=== PATIENT | female | born 1950 | race Caucasian/White ===

== ENCOUNTER 2017-05-23 01:14 | Emergency (ER) | payer OTHER, BC ==
[2017-05-23 01:26] VITALS: BP 180/87; PULSE 80; TEMP 98.6; BMI 44.3
[2017-05-23] MEDS ORDERED: SODIUM CHLORIDE 1,000 ML IV ONE (01:39)
[2017-05-23] MEDS ORDERED: KETOROLAC TROMETHAMINE 30 MG/1 ML VIAL IVPUSH ONE (01:39)
[2017-05-23] MEDS ORDERED: KETOROLAC TROMETHAMINE 30 MG/1 ML VIAL ONE (01:44)
--- NOTE | 2017-05-23 01:44 | PDOC ---
History of Present Illness - General Chief Complaint: Pain, Acute Stated Complaint: PAIN IN BACK RADIATING DOWN RIGHT LEG Time Seen by Provider: 05/23/17 01:27 History Source: Patient Exam Limitations: No Limitations - History of Present Illness Initial Comments: 05/23/17 01:46 This is an obese 66-year-old female who comes in complaining of epigastric pain. Patient says she has some associated nausea but denies any vomiting or diarrhea. Patient said she did have 2 loose bowel movements today that were normal in color. Patient says she often has 2-3 bowel movements a day. Patient says that bowel movements have not been dark or bloody. Patient denies history of blood in her stool or gastritis. Patient denies any fevers or chills. Patient denies any chest pain or shortness of breath patient denies any headache dizziness or neurological: Planes. Patient is complaining of low back pain radiating down her right leg. Patient has a long history of this pain and her fentanyl was recently decreased increased from 100 g 250 g per hour. In addition to that patient also takes 120 mg of oxycodone on a daily basis. On review of patients prescription drug history she appears to be compliant with her pain medication regime and is getting her pain medications from a pain specialist. PAST MEDICAL HISTORY: Chronic pain as per history of present illness PAST SURGICAL HISTORY: no significant history FAMILY HISTORY: no pertinant history SOCIAL HISTORY: Pt lives alone and is disabled. ALLERGIES: As per nursing notes Review of Systems General: No fevers or chills, no weakness, no weight loss HEENT: No change in vision. No sore throat,. No ear pain CardioVascular: No chest pain or shortness of breath Respiratory:No cough, or wheezing. Gastrointestinal: no nausea, vomitting, diarrhea or constipation, No rectal bleeding, abdominal pain as per history of present illness Genitourinary: No dysuria, hematuria, or frequency Musculoskeletal: Chronic low back pain radiating down her right leg Neurologic: No headache, vertigo, dizziness or loss of consciousness Psychiatric: nor depression Skin: No rashes or easy bruising Endocrine: no increased thirst or abnormal weight change Allergic: no skin or latex allergy All other systems reviewed and normal Exam: General: Well-nourished well-developed individual, no acute distress HEENT: Throat: Normal, tonsils normal, no erythema or exudate Neck: Supple, no meningeal signs, no lymphadenopathy Eyes::Pupils equal reactive and round, extraocular motion intact Chest: Nontender to palpation Cardiac: S1-S2 normal, regular rate and rhythm, no murmurs rubs or gallops Respiratory: Lungs clear to auscultation bilateral Abdomen: Soft, nondistended, normal bowel sounds, patient complains of diffuse abdominal pain on palpation in that she is distracted and then I can press hard on her abdomen with my stethoscope and she does not say anything hurts. Extremities: Warm, dry, no cyanosis, clubbing, or edema Skin: No rashes Neuro: Alert and oriented x3, CN II - XII intact, nonfocal exam. Patient is grossly intact. But exam limited due to patient's chronic pain Psych: Normal mood and affect Medical decision making: This is a 66-year-old female with long history of chronic pain who has been on high doses of fentanyl and oxycodone for over a year now. Patient comes in complaining of some epigastric pain however on palpation patient does not exhibit discomfort. Given patient's age and obesity I will obtain a workup to rule out any emergent causes for her stated discomfort. Will obtain CBC, comp, cardiac profile, urinalysis Will obtain EKG Will give patient some Toradol IM and Maalox. Will reassess and follow-up with the results of her workup 02:30 Patient's discomfort is somewhat improved with the Toradol, Maalox and Zofran. Patient's CBC is normal Patient's urinalysis is normal Chemistries are still pending 02:45 Assessment and plan: This is a 66-year-old female with long history of chronic pain. Patient is on 2 fentanyl patches and also takes oxycodone. Patient comes in complaining of some epigastric discomfort. Patient had a workup that was negative. Patient was given some antacids with improvement of her pain and told to follow-up with her primary care doctor. Past History - Past Medical History Allergies/Adverse Reactions: Allergies Allergy/AdvReac Type Severity Reaction Status Date / Time No Known Allergies Allergy Verified 05/23/17 01:15 Home Medications: Ambulatory Orders FENTANYL 12mcg PATCH [DURAGESIC 12mcg PATCH -] 1 each TD Q72H 05/23/17 Oxycodone HCl [Oxycodone HCl ER] 10 mg PO PRN 05/23/17 Pregabalin [Lyrica] 25 mg PO DAILY 05/23/17 COPD: No Other medical history: CHRONIC BACK PAIN - Suicide/Smoking/Psychosocial Hx Smoking History: Never smoked Have you smoked in the past 12 months: No Information on smoking cessation initiated: No Hx Alcohol Use: No Substance Use Type: None *Physical Exam - Vital Signs Last Vital Signs Temp Pulse Resp BP Pulse Ox 98.6 F 80 18 180/87 100 05/23/17 01:21 05/23/17 01:21 05/23/17 01:21 05/23/17 01:21 05/23/17 01:21 ED Treatment Course - LABORATORY CBC & Chemistry Diagram: 05/23/17 01:43 05/23/17 01:43 *DC/Admit/Observation/Transfer Diagnosis at time of Disposition: Epigastric abdominal pain - Discharge Dispostion Disposition: HOME Condition at time of disposition: Stable Admit: No - Referrals Referrals: Ramona Amor MD [Primary Care Provider] - - Patient Instructions Additional Instructions: For the epigastric discomfort take [id number] Tums or antacids. Continue to take your pain medications as prescribed. Continue to follow up with your pain specialist regarding her chronic leg and back pain. Return to the emergency department immediately with ANY new, persistent or worsening symptoms. Continue any medications as previously prescribed by your physician. You should follow up with your primary doctor as soon as possible regarding today's emergency department visit. . Please make sure your doctor reviews the results of your emergency evaluation. Thank you for coming to the Emergency Department today for your care. It was a pleasure to see you today. Please note that your evaluation is INCOMPLETE until you follow-up with your doctor. - Post Discharge Activity
[2017-05-23] MEDS ORDERED: KETOROLAC TROMETHAMINE 60 MG/2 ML VIAL IM ONE (01:45)
[2017-05-23] MEDS ORDERED: KETOROLAC TROMETHAMINE 60 MG/2 ML VIAL ONE (01:45)
[2017-05-23] MEDS ORDERED: MAG HYDROX/AL HYDROX/SIMETH 355 ML ORAL.SUSP PO ONE (01:51)
[2017-05-23] MEDS ORDERED: MAG HYDROX/AL HYDROX/SIMETH 30 ML UNIT-DOSE CUP ONE (01:55)
[2017-05-23] MEDS ORDERED: ONDANSETRON *ODT* 4 MG TABLET SL ONE (02:12)
[2017-05-23] MEDS ORDERED: ONDANSETRON *ODT* 4 MG TABLET ONE (02:12)
[2017-05-23 02:18] LABS: BASO % 0.8 % (0-2.0); EOS % 2.3 % (0-4.5); HEMATOCRIT 44.6 % (32.4-45.2); HEMOGLOBIN 14.7 GM/dL (10.7-15.3); LYMPH % 18.1 % (8-40); MEAN CELL VOLUME 84.7 fl (80-96); MEAN PLT VOLUME 9.4 fl (7.5-11.1); MONO % 6.4 % (3.8-10.2); NEUT % 72.4 % (42.8-82.8); PLATELET COUNT 181 K/MM3 (134-434); RBC 5.27 M/mm3 (3.60-5.2); RDW 14.9 % (11.6-15.6); WHITE BLOOD COUNT 7.6 K/mm3 (4.0-10.0)
[2017-05-23 02:25] LABS: URINE APPEARANCE CLEAR; URINE BILIRUBIN NEGATIVE (NEGATIVE); URINE BLOOD NEGATIVE (NEGATIVE); URINE COLOR YELLOW; URINE GLUCOSE (UA) NEGATIVE (NEGATIVE); URINE KETONE NEGATIVE (NEGATIVE); URINE LEUK ESTERASE NEGATIVE (NEGATIVE); URINE NITRITE NEGATIVE (NEGATIVE); URINE PROTEIN NEGATIVE (NEGATIVE)
[2017-05-23 02:39] LABS: ALBUMIN 4.2 g/dl (3.4-5.0); ALK PHOS 97 U/L (45-117); ANION GAP 7 (8-16); BILIRUBIN,TOTAL 0.8 mg/dL (0.2-1.0); BLOOD UREA NITROGEN 19 mg/dL (7-18); CALCIUM 9.8 mg/dL (8.5-10.1); CHLORIDE 100 mmol/L (98-107); CO2 34 mmol/L (21-32); CREATININE 1.1 mg/dL (0.55-1.02); GLUCOSE,RANDOM 107 mg/dL (74-106); LIPASE 57 U/L (73-393); POTASSIUM 3.5 mmol/L (3.5-5.1); SGOT/AST 19 U/L (15-37); SGPT/ALT 19 U/L (12-78); SODIUM 141 mmol/L (136-145); TOT PROT 8.5 g/dl (6.4-8.2)
--- NOTE | 2017-05-24 18:55 | EKG ---
Test Reason : Blood Pressure : / mmHG Vent. Rate : 067 BPM Atrial Rate : 067 BPM P-R Int : 174 ms QRS Dur : 070 ms QT Int : 378 ms P-R-T Axes : 099 -21 -06 degrees QTc Int : 399 ms POOR DATA QUALITY, INTERPRETATION MAY BE ADVERSELY AFFECTED NORMAL SINUS RHYTHM VOLTAGE CRITERIA FOR LEFT VENTRICULAR HYPERTROPHY ABNORMAL ECG NO PREVIOUS ECGS AVAILABLE Confirmed by NEHA ASHLEY MD ([id number]) on 05/24/2017 6:55:01 PM Referred By: MD KNOWLES Confirmed By:NEHA ASHLEY MD
== END 2017-05-23 03:06 | disposition home or self-care (01) ==
LOC: FER 01:14
PROC: 3E0233Z Introduction of Anti-inflammatory into Muscle, Percutaneous Approach (ICD-10-PCS; principal; 2017-05-23)
DX: R10.13 Epigastric pain (principal); E66.01 Morbid (severe) obesity due to excess calories; Z68.41 Body mass index [BMI] 40.0-44.9, adult; G89.29 Other chronic pain
CPT/HCPCS: 36415; 80053; 81003; 82550; 83690; 84484; 85025; 93005; 96372; 99282-25

== ENCOUNTER 2022-06-29 12:14 | Inpatient (IN) | payer OTHER, BC ==
[2022-06-29] MEDS ORDERED: SODIUM CHLORIDE 1,000 ML IV STA (12:36)
[2022-06-29 13:56] LABS: BASO % 0.8 % (0-2.0); EOS % 2.3 % (0-4.5); HEMOGLOBIN 15.2 GM/dL (10.7-15.3); LYMPH % 11.8 % (8-40); MCH 29.8 pg (25.7-33.7); MEAN CELL VOLUME 90.4 fl (80-96); MEAN PLT VOLUME 8.6 fl (7.5-11.1); MONO % 4.2 % (3.8-10.2); NEUT % 80.9 % (42.8-82.8); PLATELET COUNT 149 10^3/uL (134-434); RBC 5.09 M/mm3 (3.60-5.2); RDW 15.1 % (11.6-15.6)
[2022-06-29 14:02] LABS: INR 1.06 (0.83-1.09); PROTHROMBIN TIME (PATIENT) 12.3 SEC (9.7-13.0)
[2022-06-29 14:04] LABS: ACTIVATED PTT 37.4 SECONDS (25.2-36.5)
[2022-06-29 14:10] LABS: EPI CELLS 24 /uL (0-25.1); HYALINE CASTS 2 /uL (0-3.1); PH,URINE 5.5 (5.0-8.0); URINE APPEARANCE CLOUDY; URINE BACTERIA >9,000 /uL (0-1359); URINE BILIRUBIN NEGATIVE (NEGATIVE); URINE COLOR YELLOW; URINE GLUCOSE (UA) NEGATIVE (NEGATIVE); URINE KETONE TRACE (NEGATIVE); URINE LEUK ESTERASE 2+ (NEGATIVE); URINE NITRITE POSITIVE (NEGATIVE); URINE PROTEIN 1+ (NEGATIVE); URINE WBC 633 /uL (0-25.8)
[2022-06-29 14:16] LABS: CHLORIDE 98 mmol/L (98-107); SODIUM 138 mmol/L (136-145)
[2022-06-29 14:19] LABS: ALBUMIN 3.5 g/dl (3.4-5.0); ANION GAP 6 MMOL/L (8-16); CALCIUM 9.1 mg/dL (8.5-10.1); CO2 35 mmol/L (21-32)
[2022-06-29 14:20] LABS: GLUCOSE,RANDOM 148 mg/dL (74-106)
[2022-06-29 14:22] LABS: CREATININE 0.8 mg/dL (0.55-1.3)
[2022-06-29 14:23] LABS: SGOT/AST 16 U/L (15-37); SGPT/ALT 16 U/L (13-61)
[2022-06-29 14:23] LABS: URINE RBC 50.2 /uL (0-23.9); YEAST NEGATIVE (NEGATIVE)
[2022-06-29 14:24] LABS: BILIRUBIN,TOTAL 0.7 mg/dL (0.2-1); TOT PROT 7.2 g/dl (6.4-8.2)
[2022-06-29 14:25] LABS: ALK PHOS 91 U/L (45-117)
[2022-06-29] MEDS ORDERED: CEFTRIAXONE 1,000 MG in DEXTROSE 5%-WATER - 50 ML IVPB ONE (14:46)
[2022-06-29] MEDS ORDERED: CEFTRIAXONE 1 GM/50 ML BAG ONE (14:55)
[2022-06-29] MEDS ORDERED: DEXAMETHASONE SOD PHOSPHATE 4 MG/1 ML VIAL IVPUSH ONE (15:02)
[2022-06-29] MEDS ORDERED: DEXAMETHASONE SOD PHOSPHATE 10 MG/1 ML VIAL ONE (15:07)
[2022-06-29] MEDS ORDERED: FENTANYL PATCH WASTE TD PRN (17:08)
[2022-06-29] MEDS ORDERED: FUROSEMIDE 40 MG TABLET (FP) PO SCH (17:15)
[2022-06-29] MEDS ORDERED: oxyCODONE HCL 10 MG SUSTAINED ACTING TABLET PO SCH (17:15)
[2022-06-29] MEDS ORDERED: FUROSEMIDE 40 MG TABLET (FP) ONE (18:44)
[2022-06-29] MEDS: LACTATED RINGERS SOLUTION 1,000 ML/1,000 ML INFUS.BAG IV SCH (18:47)
[2022-06-29] MEDS ORDERED: oxyCODONE HCL 5 MG TABLET PO PRN (18:53)
[2022-06-29] MEDS ORDERED: ACETAMINOPHEN 325 MG TABLET (FP) ONE (19:01)
[2022-06-29] MEDS ORDERED: ACETAMINOPHEN 325 MG TABLET (FP) PO STA (19:09)
[2022-06-29] MEDS ORDERED: PREGABALIN 25 MG CAPSULE PO SCH (22:00)
[2022-06-29] MEDS ORDERED: VENLAFAXINE HCL 150 MG E.R. CAPSULE PO SCH (22:00)
[2022-06-29] MEDS: fentaNYL 100mcg/hr PATCH.TD72 TD SCH (23:25)
[2022-06-29] MEDS: SENNOSIDES 8.6MG TABLET (FP) PO SCH ×2 (23:26→23:39)
[2022-06-29] MEDS: VENLAFAXINE HCL 75 MG E.R. CAPSULES PO SCH (23:26)
[2022-06-29] MEDS: PREGABALIN 100 MG CAPSULE PO SCH (23:27)
[2022-06-30 01:20] VITALS: BMI 44.2
[2022-06-30] MEDS: PREGABALIN 100 MG CAPSULE PO SCH ×3 (06:32→22:59)
[2022-06-30] MEDS ORDERED: CEFTRIAXONE 1 GM in DEXTROSE 5%-WATER - 50 ML IVPB SCH (10:00)
[2022-06-30] MEDS: ENOXAPARIN NA (PORCINE) 40 MG/0.4 ML DISP.SYRIN SQ SCH (10:46)
[2022-06-30] MEDS: POLYETHYLENE GLYCOL (HEALTHYLAX) 3350 17 GM PACKET PO SCH (10:47)
[2022-06-30] MEDS: VENLAFAXINE HCL 75 MG E.R. CAPSULES PO SCH ×2 (10:49→22:59)
[2022-06-30 12:24] LABS: HEMATOCRIT 39.8 % (32.4-45.2); HEMOGLOBIN 13.4 GM/dL (10.7-15.3); MCH 29.6 pg (25.7-33.7); MCHC 33.5 g/dl (32.0-36.0); MEAN CELL VOLUME 88.2 fl (80-96); MEAN PLT VOLUME 8.6 fl (7.5-11.1); PLATELET COUNT 150 10^3/uL (134-434); RBC 4.52 M/mm3 (3.60-5.2); RDW 14.9 % (11.6-15.6); WHITE BLOOD COUNT 7.7 K/mm3 (4.0-10.0)
[2022-06-30 12:48] LABS: ALBUMIN 3.1 g/dl (3.4-5.0); BLOOD UREA NITROGEN 20.6 mg/dL (7-18); CALCIUM 9.2 mg/dL (8.5-10.1)
[2022-06-30 12:52] LABS: CREATININE 0.5 mg/dL (0.55-1.3)
[2022-06-30 12:53] LABS: BILIRUBIN,TOTAL 0.5 mg/dL (0.2-1); TOT PROT 6.3 g/dl (6.4-8.2)
[2022-06-30] MEDS: LACTATED RINGERS SOLUTION 1,000 ML/1,000 ML INFUS.BAG IV SCH (19:34)
[2022-06-30] MEDS: SENNOSIDES 8.6MG TABLET (FP) PO SCH (22:59)
[2022-07-01] MEDS: PREGABALIN 100 MG CAPSULE PO SCH ×3 (05:49→21:25)
[2022-07-01] MEDS ORDERED: MEROPENEM 1 GM in DEXTROSE 5%-WATER 100 ML IVPB ONE (10:00)
[2022-07-01] MEDS: VENLAFAXINE HCL 75 MG E.R. CAPSULES PO SCH ×2 (10:56→21:24)
[2022-07-01] MEDS: POLYETHYLENE GLYCOL (HEALTHYLAX) 3350 17 GM PACKET PO SCH (10:56)
[2022-07-01] MEDS: ENOXAPARIN NA (PORCINE) 40 MG/0.4 ML DISP.SYRIN SQ SCH (10:56)
[2022-07-01] MEDS: FUROSEMIDE 40 MG TABLET (FP) PO SCH (10:57)
[2022-07-01] MEDS: LACTATED RINGERS SOLUTION 1,000 ML/1,000 ML INFUS.BAG IV SCH ×2 (17:53→21:25)
[2022-07-01] MEDS: SENNOSIDES 8.6MG TABLET (FP) PO SCH ×2 (21:25→21:55)
[2022-07-02] MEDS: PREGABALIN 100 MG CAPSULE PO SCH ×3 (06:47→23:37)
[2022-07-02] MEDS: LACTATED RINGERS SOLUTION 1,000 ML/1,000 ML INFUS.BAG IV SCH (06:50)
[2022-07-02] MEDS: POLYETHYLENE GLYCOL (HEALTHYLAX) 3350 17 GM PACKET PO SCH (09:38)
[2022-07-02] MEDS: ENOXAPARIN NA (PORCINE) 40 MG/0.4 ML DISP.SYRIN SQ SCH (09:38)
[2022-07-02] MEDS: VENLAFAXINE HCL 75 MG E.R. CAPSULES PO SCH ×2 (09:39→23:38)
[2022-07-02] MEDS: fentaNYL 100mcg/hr PATCH.TD72 TD SCH (17:02)
[2022-07-02] MEDS ORDERED: MELATONIN 1 MG TABLET PO PRN (22:16)
[2022-07-02 22:45] VITALS: RESP 20
[2022-07-02] MEDS: SENNOSIDES 8.6MG TABLET (FP) PO SCH (23:37)
[2022-07-03] MEDS: PREGABALIN 100 MG CAPSULE PO SCH ×2 (06:35→13:55)
[2022-07-03] MEDS: VENLAFAXINE HCL 75 MG E.R. CAPSULES PO SCH (10:37)
[2022-07-03] MEDS: FUROSEMIDE 40 MG TABLET (FP) PO SCH ×2 (10:42→11:02)
[2022-07-03] MEDS: POLYETHYLENE GLYCOL (HEALTHYLAX) 3350 17 GM PACKET PO SCH ×2 (10:42→11:01)
[2022-07-03] MEDS ORDERED: amLODIPine BESYLATE 10 MG TABLET (FP) PO SCH (10:45)
[2022-07-03] MEDS: ENOXAPARIN NA (PORCINE) 40 MG/0.4 ML DISP.SYRIN SQ SCH (11:31)
[2022-07-03 14:44] VITALS: BP 156/84; PULSE 87; TEMP 97.8
== END 2022-07-03 15:21 | DRG 689 ==
LOC: JER 12:14 → JERBED 15:28 → J7W 19:35
PROVIDERS: ADMIT Internal Medicine
DX: N39.0 Urinary tract infection, site not specified (principal); G93.41 Metabolic encephalopathy; R40.20 Unspecified coma; U07.1 COVID-19; Z68.41 Body mass index [BMI] 40.0-44.9, adult; E87.20 Acidosis, unspecified; T40.2X5A Adverse effect of other opioids, initial encounter; T40.601A Poisoning by unspecified narcotics, accidental (unintentional), initial encounter; I73.9 Peripheral vascular disease, unspecified; T40.415A Adverse effect of fentanyl or fentanyl analogs, initial encounter; E66.01 Morbid (severe) obesity due to excess calories; K74.60 Unspecified cirrhosis of liver; E78.5 Hyperlipidemia, unspecified; Y92.89 Other specified places as the place of occurrence of the external cause; B96.1 Klebsiella pneumoniae [K. pneumoniae] as the cause of diseases classified elsewhere; D72.829 Elevated white blood cell count, unspecified; B96.20 Unspecified Escherichia coli [E. coli] as the cause of diseases classified elsewhere
CPT/HCPCS: 0241U-QW; 36415; 70450-TC; 71045-TC-FY; 74177-TC; 80053; 81003; 82553; 83605; 84484; 85025; 85027; 85610; 85730; 86850; 86900; 86901; 87040; 87086; 87186; 93005; 93010; 97162-GP; 99291; C9803-CS; Q9967; U0003; U0005

== ENCOUNTER 2022-10-28 23:13 | Inpatient (IN) | payer OTHER, BC ==
[2022-10-28 23:48] VITALS: BMI 47.2
[2022-10-29 01:32] LABS: BASO % 1.1 % (0-2.0); EOS % 3.1 % (0-4.5); HEMATOCRIT 34.5 % (32.4-45.2); HEMOGLOBIN 11.3 GM/dL (10.7-15.3); LYMPH % 24.4 % (8-40); MCH 27.8 pg (25.7-33.7); MCHC 32.6 g/dl (32.0-36.0); MEAN CELL VOLUME 85.3 fl (80-96); MEAN PLT VOLUME 8.2 fl (7.5-11.1); NEUT % 60.4 % (42.8-82.8); PLATELET COUNT 270 10^3/uL (134-434); RBC 4.05 M/mm3 (3.60-5.2); RDW 15.2 % (11.6-15.6); WHITE BLOOD COUNT 5.3 K/mm3 (4.0-10.0)
[2022-10-29 01:36] LABS: INR 1.23 (0.83-1.09); PROTHROMBIN TIME (PATIENT) 14.2 SEC (9.7-13.0)
[2022-10-29 01:39] LABS: ACTIVATED PTT 29.2 SECONDS (25.2-36.5)
[2022-10-29 01:49] LABS: POTASSIUM 3.6 mmol/L (3.5-5.1)
[2022-10-29 01:50] LABS: CALCIUM 8.8 mg/dL (8.5-10.1)
[2022-10-29 01:51] LABS: ALBUMIN 2.4 g/dl (3.4-5.0); BLOOD UREA NITROGEN 12.1 mg/dL (7-18)
[2022-10-29 01:54] LABS: CREATININE 0.6 mg/dL (0.55-1.3)
[2022-10-29 01:56] LABS: BILIRUBIN,TOTAL 0.4 mg/dL (0.2-1)
[2022-10-29] MEDS ORDERED: PANTOPRAZOLE SODIUM 40 MG VIAL IVPUSH SCH (10:00)
[2022-10-29] MEDS: DEXTROSE 5%-NORMAL SALINE 1,000 ML IV SCH ×2 (10:21→22:54)
[2022-10-29] MEDS: VENLAFAXINE HCL 75 MG E.R. CAPSULES PO SCH ×2 (10:21→22:54)
[2022-10-29 13:13] LABS: BASO % 1.1 % (0-2.0); EOS % 3.5 % (0-4.5); LYMPH % 24.9 % (8-40); MCH 28.5 pg (25.7-33.7); MCHC 33.4 g/dl (32.0-36.0); MEAN CELL VOLUME 85.4 fl (80-96); MEAN PLT VOLUME 8.2 fl (7.5-11.1); MONO % 11.7 % (3.8-10.2); NEUT % 58.8 % (42.8-82.8); PLATELET COUNT 233 10^3/uL (134-434); RBC 3.86 M/mm3 (3.60-5.2); RDW 15.1 % (11.6-15.6); WHITE BLOOD COUNT 4.4 K/mm3 (4.0-10.0)
[2022-10-29 13:20] LABS: INR 1.28 (0.83-1.09); PROTHROMBIN TIME (PATIENT) 14.8 SEC (9.7-13.0)
[2022-10-29 13:28] LABS: POTASSIUM 3.3 mmol/L (3.5-5.1)
[2022-10-29 13:31] LABS: ALBUMIN 2.2 g/dl (3.4-5.0); CALCIUM 8.6 mg/dL (8.5-10.1)
[2022-10-29 13:33] LABS: CREATININE 0.5 mg/dL (0.55-1.3)
[2022-10-29 13:35] LABS: BILIRUBIN,TOTAL 0.5 mg/dL (0.2-1); TOT PROT 5.7 g/dl (6.4-8.2)
[2022-10-29] MEDS: POLYETHYLENE GLYCOL (HEALTHYLAX) 3350 17 GM PACKET PO SCH ×2 (14:34→22:54)
[2022-10-30] MEDS: DEXTROSE 5%-NORMAL SALINE 1,000 ML IV SCH ×2 (05:38→12:44)
[2022-10-30] MEDS: POLYETHYLENE GLYCOL (HEALTHYLAX) 3350 17 GM PACKET PO SCH ×3 (05:39→21:55)
[2022-10-30 08:15] LABS: BASO % 1.1 % (0-2.0); EOS % 2.2 % (0-4.5); HEMATOCRIT 30.5 % (32.4-45.2); HEMOGLOBIN 10.3 GM/dL (10.7-15.3); LYMPH % 17.1 % (8-40); MCH 28.5 pg (25.7-33.7); MCHC 33.7 g/dl (32.0-36.0); MEAN CELL VOLUME 84.5 fl (80-96); MEAN PLT VOLUME 7.7 fl (7.5-11.1); MONO % 9.7 % (3.8-10.2); NEUT % 69.9 % (42.8-82.8); PLATELET COUNT 191 10^3/uL (134-434); RDW 15.5 % (11.6-15.6); WHITE BLOOD COUNT 4.6 K/mm3 (4.0-10.0)
[2022-10-30 08:20] LABS: INR 1.31 (0.83-1.09); PROTHROMBIN TIME (PATIENT) 15.2 SEC (9.7-13.0)
[2022-10-30 08:24] LABS: POTASSIUM 3.2 mmol/L (3.5-5.1)
[2022-10-30 08:26] LABS: ALBUMIN 2.2 g/dl (3.4-5.0); BLOOD UREA NITROGEN 11.5 mg/dL (7-18)
[2022-10-30 08:27] LABS: CALCIUM 8.4 mg/dL (8.5-10.1)
[2022-10-30 08:29] LABS: CREATININE 0.5 mg/dL (0.55-1.3)
[2022-10-30 08:30] LABS: BILIRUBIN,TOTAL 0.4 mg/dL (0.2-1); TOT PROT 5.6 g/dl (6.4-8.2)
[2022-10-30 10:02] LABS: HEPATITIS B SURFACE AG MATERN NON-REACTIVE (NONREACTIVE)
[2022-10-30] MEDS: PANTOPRAZOLE 40 MG TABLET PO SCH (10:58)
[2022-10-30] MEDS: VENLAFAXINE HCL 75 MG E.R. CAPSULES PO SCH ×2 (10:58→21:54)
[2022-10-30 12:20] LABS: EPI CELLS 12 /uL (0-25.1); HYALINE CASTS 0 /uL (0-3.1); PH,URINE 7.5 (5.0-8.0); URINE APPEARANCE CLEAR; URINE BACTERIA 28 /uL (0-1359); URINE BILIRUBIN NEGATIVE (NEGATIVE); URINE COLOR YELLOW; URINE GLUCOSE (UA) NEGATIVE (NEGATIVE); URINE KETONE NEGATIVE (NEGATIVE); URINE LEUK ESTERASE 1+ (NEGATIVE); URINE NITRITE NEGATIVE (NEGATIVE); URINE PROTEIN TRACE (NEGATIVE); URINE RBC 105 /uL (0-23.9); URINE WBC 26 /uL (0-25.8)
[2022-10-30] MEDS ORDERED: ACETAMINOPHEN 325 MG TABLET (FP) PO PRN (14:19)
[2022-10-30] MEDS: LIDOCAINE 5% TOPICAL PATCH TP SCH (14:31)
[2022-10-30] MEDS ORDERED: ACETAMINOPHEN 1000 MG/100 ML BAG IVPB PRN (21:13)
[2022-10-30] MEDS ORDERED: KETOROLAC TROMETHAMINE 30 MG/1 ML VIAL IM ONE (21:14)
[2022-10-30] MEDS ORDERED: fentaNYL 75mcg/hr PATCH.TD72 TD SCH (21:30)
[2022-10-30] MEDS: fentaNYL 75mcg/hr PATCH.TD72 TD SCH (21:52)
[2022-10-30] MEDS: PREGABALIN 50 MG CAPSULE PO SCH (21:54)
[2022-10-30] MEDS: LIDOCAINE PATCH REMOVAL MC SCH (21:54)
[2022-10-30] MEDS ORDERED: oxyCODONE HCL 5 MG TABLET PO PRN (22:00)
[2022-10-31] MEDS: PREGABALIN 50 MG CAPSULE PO SCH ×3 (05:40→22:26)
[2022-10-31] MEDS: DEXTROSE 5%-NORMAL SALINE 1,000 ML IV SCH ×2 (05:40→22:24)
[2022-10-31] MEDS: oxyCODONE HCL 5 MG TABLET PO PRN ×3 (05:41→22:25)
[2022-10-31] MEDS: POLYETHYLENE GLYCOL (HEALTHYLAX) 3350 17 GM PACKET PO SCH ×3 (05:42→22:26)
[2022-10-31] MEDS: LIDOCAINE 5% TOPICAL PATCH TP SCH (09:02)
[2022-10-31] MEDS: PANTOPRAZOLE 40 MG TABLET PO SCH (09:03)
[2022-10-31] MEDS: VENLAFAXINE HCL 75 MG E.R. CAPSULES PO SCH ×2 (09:03→22:25)
[2022-10-31] MEDS ORDERED: ONDANSETRON 8 MG TABLET (FP) PO PRN (11:53)
[2022-10-31] MEDS ORDERED: ONDANSETRON 4 MG TABLET PO PRN (12:03)
[2022-10-31] MEDS: LIDOCAINE PATCH REMOVAL MC SCH (22:26)
[2022-11-01] MEDS: DEXTROSE 5%-NORMAL SALINE 1,000 ML IV SCH (06:28)
[2022-11-01] MEDS: PREGABALIN 50 MG CAPSULE PO SCH ×3 (06:28→22:53)
[2022-11-01] MEDS: POLYETHYLENE GLYCOL (HEALTHYLAX) 3350 17 GM PACKET PO SCH ×3 (06:28→22:53)
[2022-11-01 08:22] LABS: HEMOGLOBIN 10.4 GM/dL (10.7-15.3); MCH 28.5 pg (25.7-33.7); MCHC 33.5 g/dl (32.0-36.0); MEAN CELL VOLUME 85.2 fl (80-96); MEAN PLT VOLUME 8.3 fl (7.5-11.1); PLATELET COUNT 155 10^3/uL (134-434); RBC 3.63 M/mm3 (3.60-5.2); RDW 15.9 % (11.6-15.6); WHITE BLOOD COUNT 3.9 K/mm3 (4.0-10.0)
[2022-11-01 08:37] LABS: CALCIUM 8.4 mg/dL (8.5-10.1)
[2022-11-01 08:38] LABS: BLOOD UREA NITROGEN 8.9 mg/dL (7-18)
[2022-11-01 08:41] LABS: CREATININE 0.7 mg/dL (0.55-1.3)
[2022-11-01] MEDS ORDERED: POTASSIUM CHLORIDE TABS 20 MEQ TABLET.ER (FP) PO ONE (09:00)
[2022-11-01] MEDS: PANTOPRAZOLE 40 MG TABLET PO SCH (10:03)
[2022-11-01] MEDS: KCL 10 MEQ IVPB 10 MEQ/100 ML INFUS.BAG IVPB SCH ×3 (10:03→13:53)
[2022-11-01] MEDS: VENLAFAXINE HCL 75 MG E.R. CAPSULES PO SCH ×2 (10:03→22:53)
[2022-11-01] MEDS: LIDOCAINE 5% TOPICAL PATCH TP SCH (10:04)
[2022-11-01] MEDS ORDERED: D5-1/2NS+20 MEQ KCL - 20 MEQ/1,000 ML INFUS.BAG IV SCH (13:00)
[2022-11-01] MEDS: oxyCODONE HCL 5 MG TABLET PO PRN ×2 (16:49→23:01)
[2022-11-01] MEDS: LIDOCAINE PATCH REMOVAL MC SCH (22:53)
[2022-11-02] MEDS: PREGABALIN 50 MG CAPSULE PO SCH ×3 (05:59→22:18)
[2022-11-02] MEDS: POLYETHYLENE GLYCOL (HEALTHYLAX) 3350 17 GM PACKET PO SCH ×3 (05:59→22:19)
[2022-11-02 08:20] LABS: POTASSIUM 3.1 mmol/L (3.5-5.1)
[2022-11-02 08:28] LABS: CREATININE 0.7 mg/dL (0.55-1.3)
[2022-11-02] MEDS: oxyCODONE HCL 5 MG TABLET PO PRN ×2 (08:29→22:26)
[2022-11-02 08:30] LABS: BILIRUBIN,TOTAL 0.4 mg/dL (0.2-1); TOT PROT 5.2 g/dl (6.4-8.2)
[2022-11-02 08:33] LABS: MAGNESIUM 1.5 mg/dL (1.8-2.4)
[2022-11-02] MEDS ORDERED: POTASSIUM CHLORIDE ORAL LIQUID 20 MEQ/15 ML PO ONE (08:51)
[2022-11-02] MEDS: PANTOPRAZOLE 40 MG TABLET PO SCH (09:24)
[2022-11-02] MEDS: LIDOCAINE 5% TOPICAL PATCH TP SCH (09:24)
[2022-11-02] MEDS: VENLAFAXINE HCL 75 MG E.R. CAPSULES PO SCH ×2 (09:24→22:18)
[2022-11-02] MEDS: POTASSIUM CHLORIDE TABS 20 MEQ TABLET.ER (FP) PO SCH ×2 (09:25→22:18)
[2022-11-02] MEDS ORDERED: MAGNESIUM 2GM/50ML STERILE WATER IVPB IVPB ONE (12:30)
[2022-11-02] MEDS: fentaNYL 75mcg/hr PATCH.TD72 TD SCH (22:18)
[2022-11-02] MEDS: LIDOCAINE PATCH REMOVAL MC SCH (22:30)
[2022-11-03] MEDS: POLYETHYLENE GLYCOL (HEALTHYLAX) 3350 17 GM PACKET PO SCH ×3 (05:52→23:23)
[2022-11-03] MEDS: PREGABALIN 50 MG CAPSULE PO SCH ×3 (05:52→23:22)
[2022-11-03 07:23] VITALS: RESP 18
[2022-11-03 08:00] LABS: POTASSIUM 4.2 mmol/L (3.5-5.1)
[2022-11-03 08:15] LABS: BLOOD UREA NITROGEN 11.3 mg/dL (7-18); MAGNESIUM 1.7 mg/dL (1.8-2.4)
[2022-11-03 08:18] LABS: CREATININE 0.7 mg/dL (0.55-1.3)
[2022-11-03 08:19] LABS: TOT PROT 5.1 g/dl (6.4-8.2)
[2022-11-03 08:20] LABS: BILIRUBIN,TOTAL 0.6 mg/dL (0.2-1)
[2022-11-03] MEDS: LIDOCAINE 5% TOPICAL PATCH TP SCH (10:19)
[2022-11-03] MEDS: VENLAFAXINE HCL 75 MG E.R. CAPSULES PO SCH ×2 (10:20→23:22)
[2022-11-03] MEDS: POTASSIUM CHLORIDE TABS 20 MEQ TABLET.ER (FP) PO SCH (10:20)
[2022-11-03] MEDS: PANTOPRAZOLE 40 MG TABLET PO SCH (10:20)
[2022-11-03] MEDS: oxyCODONE HCL 5 MG TABLET PO PRN ×2 (10:44→23:23)
[2022-11-03] MEDS ORDERED: MAGNESIUM OXIDE 400 MG TABLET (FP) PO ONE ×2 (12:29→15:15)
[2022-11-03] MEDS: LIDOCAINE PATCH REMOVAL MC SCH (23:23)
[2022-11-04] MEDS: POLYETHYLENE GLYCOL (HEALTHYLAX) 3350 17 GM PACKET PO SCH (05:53)
[2022-11-04] MEDS: PREGABALIN 50 MG CAPSULE PO SCH (05:53)
[2022-11-04] MEDS: oxyCODONE HCL 5 MG TABLET PO PRN (10:06)
[2022-11-04] MEDS: LIDOCAINE 5% TOPICAL PATCH TP SCH (10:06)
[2022-11-04] MEDS: PANTOPRAZOLE 40 MG TABLET PO SCH (10:12)
[2022-11-04] MEDS: VENLAFAXINE HCL 75 MG E.R. CAPSULES PO SCH (10:12)
[2022-11-04 11:05] VITALS: BP 103/54; PULSE 82; TEMP 98.8
== END 2022-11-04 12:46 | DRG 378 ==
LOC: JER 23:13 → JERBED 10-29 05:15 → J7W 10-29 07:41 → OBSVTOIN 11-01 15:07
PROVIDERS: ADMIT Internal Medicine; ATTEND Family Medicine
DX: K62.5 Hemorrhage of anus and rectum (principal); L03.114 Cellulitis of left upper limb; Z68.42 Body mass index [BMI] 45.0-49.9, adult; E66.01 Morbid (severe) obesity due to excess calories; I73.9 Peripheral vascular disease, unspecified; G89.29 Other chronic pain; K76.0 Fatty (change of) liver, not elsewhere classified; N20.0 Calculus of kidney; K76.89 Other specified diseases of liver; E78.5 Hyperlipidemia, unspecified; I80.8 Phlebitis and thrombophlebitis of other sites; F32.9 Major depressive disorder, single episode, unspecified; K59.00 Constipation, unspecified; I11.0 Hypertensive heart disease with heart failure; I50.9 Heart failure, unspecified; E87.6 Hypokalemia; E83.42 Hypomagnesemia; K64.8 Other hemorrhoids; R41.82 Altered mental status, unspecified; G62.9 Polyneuropathy, unspecified
CPT/HCPCS: 36415; 74170-TC; 74177-TC; 80048; 80053; 81003; 82272; 83735; 84484; 85025; 85027; 85610; 85730; 86704; 86708; 86709; 86803; 86850; 86900; 86901; 87086; 87340; 87517; 93005; 93010; 99285-25; G0378; Q9967

== ENCOUNTER 2023-04-19 11:58 | Inpatient (IN) | payer OTHER, BC ==
[2023-04-19] MEDS ORDERED: VANCOMYCIN PREMIX 1.75 GM 1,750 MG/350 ML PIGGYBACK IVPB ONE (12:31)
[2023-04-19] MEDS ORDERED: PIPERACILLIN/TAZOB 4.5 GM 4.5 GM in DEXTROSE 5%-WATER 100 ML IVPB ONE (12:31)
[2023-04-19] MEDS ORDERED: ACETAMINOPHEN 1000 MG/100 ML BAG IVPB ONE (12:32)
[2023-04-19] MEDS ORDERED: SODIUM CHLORIDE 0.9% 500 ML INFUS.BAG IV ONE ×2 (12:33)
[2023-04-19] MEDS ORDERED: ACETAMINOPHEN INJECTION 100 ML IVPB ONE (12:43)
[2023-04-19] MEDS ORDERED: SODIUM CHLORIDE IV ONE (12:44)
[2023-04-19] MEDS ORDERED: PIPERACILLIN/TAZOB 3.375 GM 3.375 GM/50 ML BAG IVPB ONE (13:13)
[2023-04-19 13:22] LABS: ARTERIAL BLD GAS O2 SATURATION 98.8 % (95-98); ARTERIAL BLOOD GAS BASE EXCESS -2.2 mmol/L (-2-2); ARTERIAL BLOOD GAS PO2 150.4 mmHg (80-100); ARTERIAL BLOOD GAS pH 7.353 (7.350-7.450)
[2023-04-19 13:27] LABS: INR 1.23 (0.83-1.09); PROTHROMBIN TIME (PATIENT) 14.2 SEC (9.7-13.0)
[2023-04-19 13:30] LABS: ACTIVATED PTT 30.8 SECONDS (25.2-36.5)
[2023-04-19 13:32] LABS: HEMATOCRIT 42.5 % (32.4-45.2); HEMOGLOBIN 13.7 GM/dL (10.7-15.3); MCH 27.8 pg (25.7-33.7); MCHC 32.3 g/dl (32.0-36.0); MEAN CELL VOLUME 86.2 fl (80-96); MEAN PLT VOLUME 9.3 fl (7.5-11.1); PLATELET COUNT 148 10^3/uL (134-434); RBC 4.93 M/mm3 (3.60-5.2); WHITE BLOOD COUNT 15.9 K/mm3 (4.0-10.0)
[2023-04-19 13:44] LABS: LACTIC ACID 2.8 mmol/L (0.4-2.0)
[2023-04-19 13:58] LABS: POTASSIUM 3.2 mmol/L (3.5-5.1)
[2023-04-19 14:01] LABS: ALBUMIN 2.6 g/dl (3.4-5.0); CALCIUM 9.7 mg/dL (8.5-10.1)
[2023-04-19 14:02] LABS: BLOOD UREA NITROGEN 42.4 mg/dL (7-18); MAGNESIUM 2.2 mg/dL (1.8-2.4)
[2023-04-19 14:04] LABS: CREATININE 2.9 mg/dL (0.55-1.3)
[2023-04-19 14:06] LABS: BILIRUBIN,TOTAL 1.7 mg/dL (0.2-1); TOT PROT 6.7 g/dl (6.4-8.2)
[2023-04-19 14:26] LABS: ANISOCYTOSIS 0; MACROCYTOSIS 0
[2023-04-19] MEDS ORDERED: MEROPENEM 1 GM in DEXTROSE 5%-WATER 100 ML IVPB SCH (16:15)
[2023-04-19] MEDS ORDERED: POTASSIUM CHLORIDE ORAL LIQUID 20 MEQ/15 ML PO ONE (16:15)
[2023-04-19 18:13] LABS: EPI CELLS 20 /uL (0-25.1); HYALINE CASTS 5 /uL (0-3.1); PH,URINE 6.5 (5.0-8.0); URINE APPEARANCE Error; URINE BACTERIA 673 /uL (0-1359); URINE BILIRUBIN 1+ (NEGATIVE); URINE COLOR DK YELLOW; URINE GLUCOSE (UA) NEGATIVE (NEGATIVE); URINE KETONE NEGATIVE (NEGATIVE); URINE LEUK ESTERASE 2+ (NEGATIVE); URINE NITRITE NEGATIVE (NEGATIVE); URINE PROTEIN 3+ (NEGATIVE); URINE RBC 1246 /uL (0-23.9); URINE WBC 3099 /uL (0-25.8)
[2023-04-19] MEDS: MEROPENEM 1 GM in DEXTROSE 5%-WATER 100 ML IVPB SCH (18:28)
[2023-04-19] MEDS: LACTATED RINGERS SOLUTION 1,000 ML/1,000 ML INFUS.BAG IV SCH (18:29)
[2023-04-19] MEDS ORDERED: NOREPINEPHRINE BITARTRATE/D5W 8 MG/250 ML BAG IVPB SCH (18:30)
[2023-04-19] MEDS: KCL 10 MEQ IVPB 10 MEQ/100 ML INFUS.BAG IVPB SCH ×3 (18:49→21:15)
[2023-04-19] MEDS ORDERED: LACTATED RINGERS SOLUTION 1000 ML INFUS.BAG IV ONE (19:29)
[2023-04-19] MEDS: HEPARIN NA (PORCINE) 5,000 UNITS/ML 1ML VIAL SQ SCH (21:20)
[2023-04-19] MEDS ORDERED: MUPIROCIN 2% TOPICAL OINTMENT FOR DECOLONIZATION NS SCH (22:00)
[2023-04-19] MEDS ORDERED: CHLORHEXIDINE GLUCONATE 4% CLEANSER FOR DECOLONIZATION TP SCH (22:00)
[2023-04-20] MEDS ORDERED: ACETAMINOPHEN 1000 MG/100 ML BAG IVPB PRN ×2 (00:14→16:40)
[2023-04-20 01:40] LABS: POTASSIUM 4.4 mmol/L (3.5-5.1)
[2023-04-20 01:42] LABS: CALCIUM 8.3 mg/dL (8.5-10.1)
[2023-04-20 01:43] LABS: ALBUMIN 2.2 g/dl (3.4-5.0); BLOOD UREA NITROGEN 44.7 mg/dL (7-18); MAGNESIUM 1.9 mg/dL (1.8-2.4)
[2023-04-20 01:46] LABS: CREATININE 2.4 mg/dL (0.55-1.3); PHOSPHOROUS 4.2 mg/dL (2.5-4.9)
[2023-04-20 01:47] LABS: BILIRUBIN,TOTAL 1.4 mg/dL (0.2-1)
[2023-04-20 01:48] LABS: TOT PROT 5.7 g/dl (6.4-8.2)
[2023-04-20] MEDS: MEROPENEM 1 GM in DEXTROSE 5%-WATER 100 ML IVPB SCH ×2 (06:32→17:58)
[2023-04-20] MEDS: HEPARIN NA (PORCINE) 5,000 UNITS/ML 1ML VIAL SQ SCH (06:32)
[2023-04-20 07:58] LABS: HEMOGLOBIN 12.1 GM/dL (10.7-15.3); MCHC 32.7 g/dl (32.0-36.0); MEAN CELL VOLUME 85.6 fl (80-96); MEAN PLT VOLUME 9.1 fl (7.5-11.1); PLATELET COUNT 98 10^3/uL (134-434); RBC 4.32 M/mm3 (3.60-5.2); RDW 16.1 % (11.6-15.6); WHITE BLOOD COUNT 18.5 K/mm3 (4.0-10.0)
[2023-04-20 08:08] LABS: POTASSIUM 4.1 mmol/L (3.5-5.1)
[2023-04-20 08:17] LABS: CALCIUM 8.5 mg/dL (8.5-10.1)
[2023-04-20 08:18] LABS: ALBUMIN 2.1 g/dl (3.4-5.0); BLOOD UREA NITROGEN 45.3 mg/dL (7-18); MAGNESIUM 2.1 mg/dL (1.8-2.4)
[2023-04-20 08:21] LABS: PHOSPHOROUS 3.9 mg/dL (2.5-4.9)
[2023-04-20 08:23] LABS: TOT PROT 5.5 g/dl (6.4-8.2)
[2023-04-20] MEDS ORDERED: VENLAFAXINE HCL 75 MG E.R. CAPSULES PO SCH ×2 (10:00)
[2023-04-20] MEDS ORDERED: VENLAFAXINE HCL 150 MG E.R. CAPSULE PO SCH ×2 (10:00)
[2023-04-20] MEDS: LACTATED RINGERS SOLUTION 1,000 ML/1,000 ML INFUS.BAG IV SCH (12:59)
[2023-04-20] MEDS ORDERED: MIDAZOLAM HCL 2 MG/2 ML SINGLE DOSE VIAL ONE (15:12)
[2023-04-20] MEDS ORDERED: PROPOFOL 40 ML ONE (15:12)
[2023-04-20] MEDS ORDERED: ACETAMINOPHEN INJECTION 100 ML IVPB ONE (15:16)
[2023-04-20] MEDS ORDERED: IOHEXOL 300 MG/ML INFUS..BTL IV ONE (15:17)
[2023-04-20] MEDS ORDERED: MEROPENEM 1 GM VIAL (RESTRICTED TO ID) IVPB ONE (16:00)
[2023-04-20] MEDS ORDERED: NOREPINEPHRINE BITARTRATE/D5W 8 MG/250 ML BAG IVPB SCH (16:40)
[2023-04-20] MEDS: LACTATED RINGERS SOLUTION 1,000 ML IV SCH (17:58)
[2023-04-20] MEDS ORDERED: MEROPENEM 1 GM in DEXTROSE 5%-WATER 100 ML IVPB SCH (18:00)
[2023-04-20] MEDS: MUPIROCIN 2% TOPICAL OINTMENT FOR DECOLONIZATION NS SCH (23:24)
[2023-04-20] MEDS: CHLORHEXIDINE GLUCONATE 4% CLEANSER FOR DECOLONIZATION TP SCH (23:24)
[2023-04-21] MEDS: MEROPENEM 1 GM in DEXTROSE 5%-WATER 100 ML IVPB SCH ×2 (05:07→17:37)
[2023-04-21 07:23] LABS: HEMATOCRIT 34.5 % (32.4-45.2); HEMOGLOBIN 11.4 GM/dL (10.7-15.3); MCH 28.3 pg (25.7-33.7); MCHC 32.9 g/dl (32.0-36.0); MEAN PLT VOLUME 9.4 fl (7.5-11.1); PLATELET COUNT 75 10^3/uL (134-434); RBC 4.02 M/mm3 (3.60-5.2); RDW 16.1 % (11.6-15.6); WHITE BLOOD COUNT 9.2 K/mm3 (4.0-10.0)
[2023-04-21 07:51] LABS: POTASSIUM 3.4 mmol/L (3.5-5.1)
[2023-04-21] MEDS ORDERED: POTASSIUM CHLORIDE ORAL LIQUID 20 MEQ/15 ML PO ONE ×2 (08:15→09:15)
[2023-04-21 08:28] LABS: CALCIUM 8.6 mg/dL (8.5-10.1)
[2023-04-21 08:29] LABS: ALBUMIN 1.9 g/dl (3.4-5.0); BLOOD UREA NITROGEN 41.4 mg/dL (7-18); MAGNESIUM 2.1 mg/dL (1.8-2.4)
[2023-04-21 08:31] LABS: CREATININE 1.4 mg/dL (0.55-1.3)
[2023-04-21 08:32] LABS: BILIRUBIN,TOTAL 0.5 mg/dL (0.2-1)
[2023-04-21 08:34] LABS: PHOSPHOROUS 3.4 mg/dL (2.5-4.9)
[2023-04-21] MEDS: ACETAMINOPHEN 1000 MG/100 ML BAG IVPB PRN ×3 (08:59→21:28)
[2023-04-21] MEDS: MUPIROCIN 2% TOPICAL OINTMENT FOR DECOLONIZATION NS SCH ×2 (09:31→21:31)
[2023-04-21 11:21] VITALS: BMI 37.8
[2023-04-21 11:28] LABS: ANISOCYTOSIS 0; HELMET CELLS 0; HOWELL-JOLLY BODIES 0; MACROCYTOSIS 0; OVALOCYTE 0; ROULEAU 0; SICKELED CELLS 0; TARGET CELLS 0; TEAR DROP CELLS 0; TOXIC GRANULATION 0
[2023-04-21] MEDS: HEPARIN NA (PORCINE) 5,000 UNITS/ML 1ML VIAL SQ SCH ×2 (15:18→21:29)
[2023-04-21] MEDS: LACTATED RINGERS SOLUTION 1,000 ML IV SCH (17:41)
[2023-04-21] MEDS ORDERED: LORazepam 0.5 MG TABLET PO ONE (21:17)
[2023-04-21] MEDS: CHLORHEXIDINE GLUCONATE 4% CLEANSER FOR DECOLONIZATION TP SCH (21:30)
[2023-04-22] MEDS: HEPARIN NA (PORCINE) 5,000 UNITS/ML 1ML VIAL SQ SCH ×3 (05:10→21:24)
[2023-04-22] MEDS: MEROPENEM 1 GM in DEXTROSE 5%-WATER 100 ML IVPB SCH (05:11)
[2023-04-22 07:26] LABS: BASO % 0.2 % (0-2.0); EOS % 1.1 % (0-4.5); HEMATOCRIT 37.7 % (32.4-45.2); HEMOGLOBIN 12.2 GM/dL (10.7-15.3); LYMPH % 4.7 % (8-40); MCH 27.8 pg (25.7-33.7); MCHC 32.4 g/dl (32.0-36.0); MEAN CELL VOLUME 85.8 fl (80-96); MEAN PLT VOLUME 8.9 fl (7.5-11.1); MONO % 5.8 % (3.8-10.2); NEUT % 88.2 % (42.8-82.8); PLATELET COUNT 65 10^3/uL (134-434); RDW 15.6 % (11.6-15.6); WHITE BLOOD COUNT 6.5 K/mm3 (4.0-10.0)
[2023-04-22 07:41] LABS: POTASSIUM 3.6 mmol/L (3.5-5.1)
[2023-04-22 07:44] LABS: CALCIUM 8.4 mg/dL (8.5-10.1)
[2023-04-22 07:45] LABS: ALBUMIN 2.2 g/dl (3.4-5.0); BLOOD UREA NITROGEN 29.4 mg/dL (7-18)
[2023-04-22 07:49] LABS: BILIRUBIN,TOTAL 0.8 mg/dL (0.2-1)
[2023-04-22 07:50] LABS: TOT PROT 5.5 g/dl (6.4-8.2)
[2023-04-22] MEDS: MUPIROCIN 2% TOPICAL OINTMENT FOR DECOLONIZATION NS SCH ×2 (09:46→21:24)
[2023-04-22] MEDS ORDERED: VENLAFAXINE HCL 75 MG E.R. CAPSULES PO SCH ×2 (11:00)
[2023-04-22] MEDS: CEFTRIAXONE 2 GM in DEXTROSE 5%-WATER 100 ML IVPB SCH (16:09)
[2023-04-22] MEDS: LACTATED RINGERS SOLUTION 1,000 ML IV SCH (17:31)
[2023-04-22] MEDS: CHLORHEXIDINE GLUCONATE 4% CLEANSER FOR DECOLONIZATION TP SCH (21:24)
[2023-04-23] MEDS ORDERED: LACTATED RINGERS SOLUTION 1,000 ML IV SCH (00:21)
[2023-04-23] MEDS ORDERED: NOREPINEPHRINE BITARTRATE/D5W 8 MG/250 ML BAG IVPB SCH (00:21)
[2023-04-23] MEDS ORDERED: HEPARIN NA (PORCINE) 5,000 UNITS/ML 1ML VIAL SQ SCH (06:00)
[2023-04-23 07:01] VITALS: PULSE 92
[2023-04-23] MEDS: CEFTRIAXONE 2 GM in DEXTROSE 5%-WATER 100 ML IVPB SCH (09:35)
[2023-04-23] MEDS ORDERED: MUPIROCIN 2% TOPICAL OINTMENT FOR DECOLONIZATION NS SCH (10:00)
[2023-04-23] MEDS ORDERED: VENLAFAXINE HCL 150 MG E.R. CAPSULE PO SCH (10:00)
[2023-04-23 13:16] VITALS: BP 148/82; RESP 18; TEMP 98
[2023-04-23] MEDS ORDERED: CHLORHEXIDINE GLUCONATE 4% CLEANSER FOR DECOLONIZATION TP SCH (22:00)
== END 2023-04-23 14:14 | DRG 853 ==
LOC: JER 11:58 → JERBED 12:45 → JICU 17:25 → J6S 04-22 23:15
PROVIDERS: ADMIT Internal Medicine; ATTEND Internal Medicine
PROC: 05HM33Z Insertion of Infusion Device into Right Internal Jugular Vein, Percutaneous Approach (ICD-10-PCS; principal; 2023-04-19)
PROC: B513ZZA Fluoroscopy of Right Jugular Veins, Guidance (ICD-10-PCS; 2023-04-19)
PROC: BT1BZZZ Fluoroscopy of Bladder and Urethra (ICD-10-PCS; 2023-04-20)
PROC: 0T768DZ Dilation of Right Ureter with Intraluminal Device, Via Natural or Artificial Opening Endoscopic (ICD-10-PCS; 2023-04-20 14:45)
PROC: 02HV33Z Insertion of Infusion Device into Superior Vena Cava, Percutaneous Approach (ICD-10-PCS; 2023-04-22)
PROC: B518ZZA Fluoroscopy of Superior Vena Cava, Guidance (ICD-10-PCS; 2023-04-22)
DX: A41.50 Gram-negative sepsis, unspecified (principal); J96.01 Acute respiratory failure with hypoxia; R65.21 Severe sepsis with septic shock; J98.11 Atelectasis; N17.9 Acute kidney failure, unspecified; N13.6 Pyonephrosis; E87.20 Acidosis, unspecified; I73.9 Peripheral vascular disease, unspecified; F32.9 Major depressive disorder, single episode, unspecified; D69.6 Thrombocytopenia, unspecified; E87.6 Hypokalemia; K76.0 Fatty (change of) liver, not elsewhere classified; B96.4 Proteus (mirabilis) (morganii) as the cause of diseases classified elsewhere; E66.9 Obesity, unspecified; Z68.37 Body mass index [BMI] 37.0-37.9, adult; Z74.01 Bed confinement status
CPT/HCPCS: 0241U-QW; 36415; 36569; 36600; 71045-TC-FY; 71250-TC; 74176-TC; 76000-TC-FY; 80053; 81003; 82550; 82553; 82803; 82962; 83605; 83735; 83880; 84100; 84484; 85025; 85027; 85610; 85730; 86850; 86900; 86901; 87040; 87086; 87186; 87899; 93005; 93010; 94760; 99291; C2617; G0463; J1644; J3370

== ENCOUNTER 2024-01-14 15:40 | Inpatient (IN) | payer OTHER, BC ==
[2024-01-14 16:56] LABS: VENOUS BASE EXCESS 7.4 mmol/L (-2-2); VENOUS O2 SATURATION 71.1 % (70-80)
[2024-01-14 17:00] LABS: EPI CELLS 13 /uL (0-25.1); HYALINE CASTS 4 /uL (0-3.1); PH,URINE 6.5 (5.0-8.0); URINE APPEARANCE TURBID; URINE BACTERIA >9,000 /uL (0-1359); URINE BILIRUBIN NEGATIVE (NEGATIVE); URINE COLOR YELLOW; URINE GLUCOSE (UA) NEGATIVE (NEGATIVE); URINE KETONE TRACE (NEGATIVE); URINE LEUK ESTERASE 3+ (NEGATIVE); URINE NITRITE NEGATIVE (NEGATIVE); URINE PROTEIN 3+ (NEGATIVE); URINE WBC 8000 /uL (0-25.8)
[2024-01-14 17:02] LABS: INR 0.89 (0.83-1.09); PROTHROMBIN TIME (PATIENT) 10.3 SEC (9.7-13.0)
[2024-01-14 17:05] LABS: ACTIVATED PTT 24.4 SECONDS (25.2-36.5)
[2024-01-14 17:09] LABS: URINE RBC 2483.4 /uL (0-23.9)
[2024-01-14 17:10] LABS: POTASSIUM 4.6 mmol/L (3.5-5.1); VENOUS PH 7.102 (7.310-7.410)
[2024-01-14 17:14] LABS: BLOOD UREA NITROGEN 24.7 mg/dL (7-18); CALCIUM 9.1 mg/dL (8.5-10.1)
[2024-01-14 17:18] LABS: CREATININE 1.3 mg/dL (0.55-1.3)
[2024-01-14 17:19] LABS: BILIRUBIN,TOTAL 0.6 mg/dL (0.2-1); TOT PROT 6.8 g/dl (6.4-8.2)
[2024-01-14] MEDS ORDERED: PIPERACILLIN/TAZOB 4.5 GM 4.5 GM/100 ML BAG IVPB ONE (17:57)
[2024-01-14] MEDS ORDERED: VANCOMYCIN 1 GRAM (PRE-DOCKED) 1,000 MG/250 ML BAG IVPB ONE (17:58)
[2024-01-14] MEDS: SODIUM CHLORIDE 0.9% 500 ML INFUS.BAG IV ONE (18:15)
[2024-01-14] MEDS: PIPERACILLIN/TAZOB 4.5 GM 4.5 GM in DEXTROSE 5%-WATER 100 ML IVPB ONE (18:29)
[2024-01-14] MEDS: VANCOMYCIN 1,000 MG in DEXTROSE 5%-WATER - 250 ML IVPB ONE (18:34)
[2024-01-14 18:35] LABS: BASO % 0.6 % (0-2.0); EOS % 1.6 % (0-4.5); HEMATOCRIT 43.2 % (32.4-45.2); HEMOGLOBIN 13.3 GM/dL (10.7-15.3); LYMPH % 12.6 % (8-40); MCH 29.4 pg (25.7-33.7); MCHC 30.9 g/dl (32.0-36.0); MEAN PLT VOLUME 8.3 fl (7.5-11.1); MONO % 12.5 % (3.8-10.2); NEUT % 72.7 % (42.8-82.8); PLATELET COUNT 123 10^3/uL (134-434); RBC 4.54 M/mm3 (3.60-5.2); RDW 17.6 % (11.6-15.6); VENOUS BASE EXCESS 9.6 mmol/L (-2-2); VENOUS O2 SATURATION 69.7 % (70-80); WHITE BLOOD COUNT 5.6 K/mm3 (4.0-10.0)
[2024-01-14 18:37] LABS: VENOUS PH 7.19 (7.310-7.410)
[2024-01-14] MEDS ORDERED: HEPARIN NA (PORCINE) 5,000 UNITS/ML 1ML VIAL IVPUSH PRN (19:00)
[2024-01-14] MEDS ORDERED: FUROSEMIDE 40 MG/4 ML INJECTABLE VIAL ONE (19:15)
[2024-01-14] MEDS ORDERED: HEPARIN INFUSION - 25,000 UNITS/500 ML INFUS.BAG IVPB ONE (19:15)
[2024-01-14] MEDS: FUROSEMIDE 40 MG/4 ML INJECTABLE VIAL IVPUSH ONE (19:21)
[2024-01-14] MEDS: HEPARIN NA (PORCINE) 5,000 UNITS/ML 1ML VIAL IVPUSH ONE (19:30)
[2024-01-14] MEDS: HEPARIN INFUSION - 25,000 UNITS/500 ML INFUS.BAG IVPB SCH (19:30)
[2024-01-14 20:00] LABS: N-TERMINAL BNP 15725.7 pg/ml (5-125)
[2024-01-14 22:39] LABS: ARTERIAL BLD GAS O2 SATURATION 90.8 % (95-98); ARTERIAL BLOOD GAS BASE EXCESS 11.6 mmol/L (-2-2); ARTERIAL BLOOD GAS PO2 79.4 mmHg (80-100)
[2024-01-14 22:46] LABS: ALLENS TEST POSITIVE
[2024-01-14 22:47] LABS: VENT RATE 12
[2024-01-14 22:48] LABS: ARTERIAL BLOOD GAS pH 7.169 (7.350-7.450)
[2024-01-14] MEDS ORDERED: NOREPINEPHRINE BITARTRATE 4 MG/4 ML ML IV ONE (22:52)
[2024-01-14] MEDS: NOREPINEPHRINE BITARTRATE 4,000 MCG in DEXTROSE 5%-WATER - 496 ML IV SCH (23:00)
[2024-01-14] MEDS ORDERED: RAPID SEQUENCE INTUBATION KIT NR ONE ×2 (23:02→23:03)
[2024-01-14] MEDS: MUPIROCIN 2% TOPICAL OINTMENT FOR DECOLONIZATION NS SCH (23:44)
[2024-01-14] MEDS: ETOMIDATE 20 MG/10 ML VIAL IVPUSH ONE (23:45)
[2024-01-14] MEDS: MIDAZOLAM HCL 2 MG/2 ML SINGLE DOSE VIAL IVPUSH ONE (23:45)
[2024-01-14] MEDS: ROCURONIUM BROMIDE 50 MG/5 ML VIAL IVPUSH ONE (23:45)
[2024-01-14] MEDS: PROPOFOL 1,000,000 MCG/100 ML VIAL IVPB SCH (23:48)
[2024-01-15] MEDS ORDERED: FENTANYL NS IVPB 500 MCG/100 ML BAG IVPB ONE (00:53)
[2024-01-15] MEDS ORDERED: NOREPINEPHRINE BITARTRATE 4 MG/4 ML ML IV ONE (01:16)
[2024-01-15 02:10] LABS: ARTERIAL BLD GAS O2 SATURATION 82.5 % (95-98); ARTERIAL BLOOD GAS BASE EXCESS 12.3 mmol/L (-2-2); ARTERIAL BLOOD GAS PO2 40.3 mmHg (80-100); ARTERIAL BLOOD GAS pH 7.563 (7.350-7.450)
[2024-01-15] MEDS: PIPERACILLIN/TAZOB 2.25 GM 2.25 GM in DEXTROSE 5%-WATER - 50 ML IVPB SCH (03:00)
[2024-01-15] MEDS: FENTANYL NS IVPB 500 MCG/100 ML BAG IVPB SCH (03:21)
[2024-01-15] MEDS: HEPARIN NA (PORCINE) 5,000 UNITS/ML 1ML VIAL IVPUSH PRN (03:25)
[2024-01-15 09:09] LABS: BASO % 0.6 % (0-2.0); EOS % 2.4 % (0-4.5); HEMOGLOBIN 12.8 GM/dL (10.7-15.3); LYMPH % 13.6 % (8-40); MCHC 31.1 g/dl (32.0-36.0); MEAN CELL VOLUME 93.1 fl (80-96); MONO % 11.5 % (3.8-10.2); NEUT % 71.9 % (42.8-82.8); PLATELET COUNT 119 10^3/uL (134-434); RBC 4.41 M/mm3 (3.60-5.2); RDW 17.6 % (11.6-15.6); WHITE BLOOD COUNT 9.1 K/mm3 (4.0-10.0)
[2024-01-15 09:16] LABS: INR 1.07 (0.83-1.09); PROTHROMBIN TIME (PATIENT) 12.1 SEC (9.7-13.0)
[2024-01-15 09:19] LABS: ACTIVATED PTT 67.2 SECONDS (25.2-36.5)
[2024-01-15 09:20] LABS: POTASSIUM 3.5 mmol/L (3.5-5.1)
[2024-01-15 09:23] LABS: ALBUMIN 2.8 g/dl (3.4-5.0); BLOOD UREA NITROGEN 24.9 mg/dL (7-18); CALCIUM 9.1 mg/dL (8.5-10.1); MAGNESIUM 2.2 mg/dL (1.8-2.4)
[2024-01-15 09:27] LABS: CREATININE 1.4 mg/dL (0.55-1.3); PHOSPHOROUS 1.5 mg/dL (2.5-4.9)
[2024-01-15 09:28] LABS: BILIRUBIN,TOTAL 1.2 mg/dL (0.2-1); TOT PROT 6.1 g/dl (6.4-8.2)
[2024-01-15] MEDS: PANTOPRAZOLE SODIUM 40 MG VIAL IVPUSH SCH (10:36)
[2024-01-15] MEDS: PIPERACILLIN/TAZOB 3.375 GM 3.375 GM in DEXTROSE 5%-WATER - 50 ML IVPB SCH (11:36)
[2024-01-15] MEDS: FUROSEMIDE INJECTION 100 MG in DEXTROSE 5%-WATER - 90 ML IVPB SCH (14:00)
[2024-01-15] MEDS: CHLORHEXIDINE GLUCONATE 4% CLEANSER FOR DECOLONIZATION TP SCH (22:25)
[2024-01-16] MEDS ORDERED: PIPERACILLIN/TAZOB 2.25 GM 2.25 GM in DEXTROSE 5%-WATER - 50 ML IVPB SCH (02:00)
[2024-01-16] MEDS: HEPARIN NA (PORCINE) 5,000 UNITS/ML 1ML VIAL SQ SCH (06:13)
[2024-01-16 06:57] LABS: BASO % 0.8 % (0-2.0); EOS % 2.9 % (0-4.5); HEMATOCRIT 41.1 % (32.4-45.2); HEMOGLOBIN 13.1 GM/dL (10.7-15.3); LYMPH % 13.9 % (8-40); MCH 29.2 pg (25.7-33.7); MCHC 31.7 g/dl (32.0-36.0); MEAN CELL VOLUME 91.9 fl (80-96); MEAN PLT VOLUME 9.2 fl (7.5-11.1); MONO % 8.7 % (3.8-10.2); NEUT % 73.7 % (42.8-82.8); PLATELET COUNT 126 10^3/uL (134-434); RBC 4.47 M/mm3 (3.60-5.2); RDW 16.9 % (11.6-15.6); WHITE BLOOD COUNT 6.5 K/mm3 (4.0-10.0)
[2024-01-16 07:22] LABS: CHLORIDE 98 mmol/L (98-107); SODIUM 143 mmol/L (136-145)
[2024-01-16 07:25] LABS: CALCIUM 8.6 mg/dL (8.5-10.1); GLUCOSE,RANDOM 86 mg/dL (74-106)
[2024-01-16 07:26] LABS: BLOOD UREA NITROGEN 25.2 mg/dL (7-18); CO2 35 mmol/L (21-32)
[2024-01-16 07:29] LABS: CREATININE 1.5 mg/dL (0.55-1.3)
[2024-01-16 07:34] LABS: ANION GAP 11 mmol/L (4-13); N-TERMINAL BNP 4946.1 pg/ml (5-125); POTASSIUM 2.8 mmol/L (3.5-5.1)
[2024-01-16] MEDS: NAPH,MB-DB/K PH,MBDB POWDER PACKET PO ONE (07:52)
[2024-01-16] MEDS: KCL 20 MEQ PREMIX BAG 20 MEQ/100 ML INFUS.BAG IVPB SCH (08:06)
[2024-01-16] MEDS: KCL 10 MEQ IVPB 10 MEQ/100 ML INFUS.BAG IVPB SCH ×2 (08:40→19:21)
[2024-01-16] MEDS: SODIUM PHOSPHATE - 30 MM in SODIUM CHLORIDE 250 ML IVPB ONE (10:24)
[2024-01-16] MEDS: FUROSEMIDE 40 MG/4 ML INJECTABLE VIAL IVPB SCH (13:46)
[2024-01-16 18:56] LABS: CHLORIDE 94 mmol/L (98-107); SODIUM 143 mmol/L (136-145)
[2024-01-16 18:58] LABS: BLOOD UREA NITROGEN 23.6 mg/dL (7-18); CALCIUM 7.9 mg/dL (8.5-10.1); CO2 34 mmol/L (21-32)
[2024-01-16 18:59] LABS: GLUCOSE,RANDOM 167 mg/dL (74-106)
[2024-01-16 19:01] LABS: ANION GAP 16 mmol/L (4-13); POTASSIUM 2.5 mmol/L (3.5-5.1)
[2024-01-16 19:02] LABS: CREATININE 1.5 mg/dL (0.55-1.3); PHOSPHOROUS 2.7 mg/dL (2.5-4.9)
[2024-01-16] MEDS: POTASSIUM CHLORIDE ORAL LIQUID 20 MEQ/15 ML NGT ONE (21:16)
[2024-01-17 07:56] LABS: HEMATOCRIT 40.8 % (32.4-45.2); HEMOGLOBIN 13.2 GM/dL (10.7-15.3); MCH 29.3 pg (25.7-33.7); MCHC 32.5 g/dl (32.0-36.0); MEAN CELL VOLUME 90.1 fl (80-96); PLATELET COUNT 119 10^3/uL (134-434); RBC 4.53 M/mm3 (3.60-5.2); RDW 16.7 % (11.6-15.6); WHITE BLOOD COUNT 8.2 K/mm3 (4.0-10.0)
[2024-01-17 08:11] LABS: POTASSIUM 3.1 mmol/L (3.5-5.1)
[2024-01-17 08:13] LABS: CALCIUM 8.4 mg/dL (8.5-10.1)
[2024-01-17 08:14] LABS: ALBUMIN 2.6 g/dl (3.4-5.0); BLOOD UREA NITROGEN 22.5 mg/dL (7-18); MAGNESIUM 1.9 mg/dL (1.8-2.4)
[2024-01-17 08:17] LABS: CREATININE 1.6 mg/dL (0.55-1.3); PHOSPHOROUS 2.3 mg/dL (2.5-4.9)
[2024-01-17 08:18] LABS: BILIRUBIN,TOTAL 2.2 mg/dL (0.2-1); TOT PROT 6.1 g/dl (6.4-8.2)
[2024-01-17] MEDS: POTASSIUM CHLORIDE ORAL LIQUID 20 MEQ/15 ML NGT ONE (08:57)
[2024-01-17] MEDS: KCL 10 MEQ IVPB 10 MEQ/100 ML INFUS.BAG IVPB SCH (08:57)
[2024-01-17] MEDS: MIDODRINE HCL 2.5 MG TABLET PO SCH (13:07)
[2024-01-17 15:56] LABS: POTASSIUM 3.9 mmol/L (3.5-5.1)
[2024-01-17 15:58] LABS: BLOOD UREA NITROGEN 23.2 mg/dL (7-18)
[2024-01-17 16:02] LABS: CREATININE 1.6 mg/dL (0.55-1.3)
[2024-01-18] MEDS: INSULIN ASPART SLIDING SCALE (NOVOLOG) 1 VIAL SQ SCH ×2 (06:55→17:34)
[2024-01-18 08:03] LABS: HEMATOCRIT 38.3 % (32.4-45.2); HEMOGLOBIN 12.4 GM/dL (10.7-15.3); MCH 28.9 pg (25.7-33.7); MCHC 32.4 g/dl (32.0-36.0); MEAN CELL VOLUME 89.1 fl (80-96); MEAN PLT VOLUME 9.1 fl (7.5-11.1); PLATELET COUNT 137 10^3/uL (134-434); RBC 4.31 M/mm3 (3.60-5.2); RDW 16.7 % (11.6-15.6); WHITE BLOOD COUNT 8.3 K/mm3 (4.0-10.0)
[2024-01-18 08:25] LABS: CHLORIDE 96 mmol/L (98-107); SODIUM 138 mmol/L (136-145)
[2024-01-18 08:30] LABS: CALCIUM 7.9 mg/dL (8.5-10.1)
[2024-01-18 08:31] LABS: ALBUMIN 2.3 g/dl (3.4-5.0); BLOOD UREA NITROGEN 23.4 mg/dL (7-18); CO2 33 mmol/L (21-32); GLUCOSE,RANDOM 161 mg/dL (74-106); MAGNESIUM 2.1 mg/dL (1.8-2.4)
[2024-01-18 08:34] LABS: CREATININE 1.7 mg/dL (0.55-1.3); SGOT/AST 24 U/L (15-37); SGPT/ALT 14 U/L (13-61)
[2024-01-18 08:35] LABS: BILIRUBIN,TOTAL 1.7 mg/dL (0.2-1)
[2024-01-18 08:36] LABS: ANION GAP 9 mmol/L (4-13); POTASSIUM 2.9 mmol/L (3.5-5.1)
[2024-01-18 08:37] LABS: ALK PHOS 97 U/L (45-117)
[2024-01-18] MEDS: MIDODRINE HCL 5 MG TABLET PO SCH (09:32)
[2024-01-18] MEDS: POTASSIUM CHLORIDE ORAL LIQUID 20 MEQ/15 ML NGT ONE (09:32)
[2024-01-18] MEDS: KCL 10 MEQ IVPB 10 MEQ/100 ML INFUS.BAG IVPB SCH (09:32)
[2024-01-18] MEDS: LACTATED RINGERS SOLUTION 1,000 ML/1,000 ML INFUS.BAG IV SCH (16:31)
[2024-01-18] MEDS: LACTATED RINGERS SOLUTION 1000 ML INFUS.BAG IV ONE (16:40)
[2024-01-19] MEDS: KCL 10 MEQ IVPB 10 MEQ/100 ML INFUS.BAG IVPB SCH (00:07)
[2024-01-19 06:44] LABS: BASO % 0.8 % (0-2.0); HEMATOCRIT 33.7 % (32.4-45.2); HEMOGLOBIN 10.8 GM/dL (10.7-15.3); LYMPH % 13.5 % (8-40); MCH 28.7 pg (25.7-33.7); MCHC 32.1 g/dl (32.0-36.0); MEAN CELL VOLUME 89.3 fl (80-96); MEAN PLT VOLUME 9.9 fl (7.5-11.1); MONO % 10.7 % (3.8-10.2); PLATELET COUNT 111 10^3/uL (134-434); RBC 3.78 M/mm3 (3.60-5.2); RDW 16.9 % (11.6-15.6)
[2024-01-19 07:03] LABS: POTASSIUM 3.1 mmol/L (3.5-5.1)
[2024-01-19 07:08] LABS: BLOOD UREA NITROGEN 24.1 mg/dL (7-18); CALCIUM 8.1 mg/dL (8.5-10.1)
[2024-01-19 07:11] LABS: CREATININE 1.6 mg/dL (0.55-1.3); PHOSPHOROUS 3.3 mg/dL (2.5-4.9)
[2024-01-19 07:12] LABS: BILIRUBIN,TOTAL 1.1 mg/dL (0.2-1); TOT PROT 5.1 g/dl (6.4-8.2)
[2024-01-19] MEDS: KCL 20 MEQ PREMIX BAG 20 MEQ/100 ML INFUS.BAG IVPB SCH (11:13)
[2024-01-19 16:29] LABS: CALCIUM 8.5 mg/dL (8.5-10.1)
[2024-01-19 16:30] LABS: BLOOD UREA NITROGEN 22.1 mg/dL (7-18)
[2024-01-19 16:33] LABS: CREATININE 1.4 mg/dL (0.55-1.3)
[2024-01-19] MEDS: PHENOL 177 ML SPRAY BOTTLE MM PRN (23:00)
[2024-01-20 06:53] LABS: HEMATOCRIT 33.1 % (32.4-45.2); HEMOGLOBIN 10.5 GM/dL (10.7-15.3); MCH 28.9 pg (25.7-33.7); MCHC 31.7 g/dl (32.0-36.0); MEAN CELL VOLUME 91.1 fl (80-96); MEAN PLT VOLUME 9.5 fl (7.5-11.1); PLATELET COUNT 122 10^3/uL (134-434); RBC 3.63 M/mm3 (3.60-5.2)
[2024-01-20 07:10] LABS: POTASSIUM 3.2 mmol/L (3.5-5.1)
[2024-01-20 07:13] LABS: BLOOD UREA NITROGEN 21.4 mg/dL (7-18); CALCIUM 8.1 mg/dL (8.5-10.1); MAGNESIUM 2.3 mg/dL (1.8-2.4)
[2024-01-20 07:16] LABS: CREATININE 1.4 mg/dL (0.55-1.3)
[2024-01-20 07:18] LABS: BILIRUBIN,TOTAL 0.9 mg/dL (0.2-1); TOT PROT 5.3 g/dl (6.4-8.2)
[2024-01-20] MEDS ORDERED: POTASSIUM CHLORIDE ORAL LIQUID 20 MEQ/15 ML PO ONE (07:32)
[2024-01-20] MEDS: POTASSIUM CHLORIDE ORAL LIQUID 20 MEQ/15 ML NGT ONE (08:53)
[2024-01-20] MEDS: LACTATED RINGERS SOLUTION 1,000 ML/1,000 ML INFUS.BAG IV SCH (11:42)
[2024-01-20] MEDS: AMMONIUM LACTATE 12% LOTION 225 GM BOTTLE TP PRN (11:50)
[2024-01-20 17:10] LABS: POTASSIUM 3.8 mmol/L (3.5-5.1)
[2024-01-20 17:14] LABS: BLOOD UREA NITROGEN 21.1 mg/dL (7-18); CALCIUM 8.5 mg/dL (8.5-10.1)
[2024-01-20 17:17] LABS: CREATININE 1.3 mg/dL (0.55-1.3)
[2024-01-20] MEDS ORDERED: VENLAFAXINE HCL 150 MG E.R. CAPSULE PO SCH (21:00)
[2024-01-20] MEDS: PREGABALIN 50 MG CAPSULE PO SCH (21:38)
[2024-01-21 07:22] LABS: HEMATOCRIT 32.6 % (32.4-45.2); HEMOGLOBIN 10.3 GM/dL (10.7-15.3); MCH 28.9 pg (25.7-33.7); MCHC 31.6 g/dl (32.0-36.0); MEAN CELL VOLUME 91.4 fl (80-96); MEAN PLT VOLUME 9.2 fl (7.5-11.1); PLATELET COUNT 143 10^3/uL (134-434); RBC 3.57 M/mm3 (3.60-5.2); WHITE BLOOD COUNT 5.1 K/mm3 (4.0-10.0)
[2024-01-21 07:38] LABS: POTASSIUM 3.5 mmol/L (3.5-5.1)
[2024-01-21 07:41] LABS: CALCIUM 8.2 mg/dL (8.5-10.1)
[2024-01-21 07:42] LABS: BLOOD UREA NITROGEN 17.5 mg/dL (7-18); MAGNESIUM 2.4 mg/dL (1.8-2.4)
[2024-01-21 07:45] LABS: CREATININE 1.3 mg/dL (0.55-1.3); PHOSPHOROUS 3.4 mg/dL (2.5-4.9)
[2024-01-21 07:46] LABS: BILIRUBIN,TOTAL 0.6 mg/dL (0.2-1); TOT PROT 5.4 g/dl (6.4-8.2)
[2024-01-21 09:53] LABS: ARTERIAL BLD GAS O2 SATURATION 96.5 % (95-98); ARTERIAL BLOOD GAS BASE EXCESS 4.5 mmol/L (-2-2); ARTERIAL BLOOD GAS PO2 89.9 mmHg (80-100); ARTERIAL BLOOD GAS pH 7.374 (7.350-7.450)
[2024-01-21 09:55] LABS: ALLENS TEST POSITIVE
[2024-01-21] MEDS: MIDODRINE HCL 5 MG TABLET PO SCH (10:19)
[2024-01-21] MEDS: POTASSIUM CHLORIDE ORAL LIQUID 20 MEQ/15 ML GT ONE (10:19)
[2024-01-21] MEDS: VENLAFAXINE HCL 75 MG E.R. CAPSULES PO SCH ×2 (10:20→21:27)
[2024-01-21] MEDS: MELATONIN 5 MG TABLETS NGT PRN (21:28)
[2024-01-22 06:45] LABS: ARTERIAL BLD GAS O2 SATURATION 94.8 % (95-98); ARTERIAL BLOOD GAS BASE EXCESS 1.6 mmol/L (-2-2); ARTERIAL BLOOD GAS pH 7.315 (7.350-7.450)
[2024-01-22 06:46] LABS: ALLENS TEST POSITIVE
[2024-01-22 06:49] LABS: HEMOGLOBIN 10.3 GM/dL (10.7-15.3); MCH 28.6 pg (25.7-33.7); MCHC 31.3 g/dl (32.0-36.0); MEAN CELL VOLUME 91.4 fl (80-96); MEAN PLT VOLUME 8.8 fl (7.5-11.1); PLATELET COUNT 155 10^3/uL (134-434); RBC 3.61 M/mm3 (3.60-5.2); RDW 16.9 % (11.6-15.6); WHITE BLOOD COUNT 4.5 K/mm3 (4.0-10.0)
[2024-01-22 06:52] LABS: POTASSIUM 3.9 mmol/L (3.5-5.1)
[2024-01-22 06:56] LABS: CALCIUM 8.6 mg/dL (8.5-10.1)
[2024-01-22 06:57] LABS: ALBUMIN 1.9 g/dl (3.4-5.0); MAGNESIUM 2.4 mg/dL (1.8-2.4)
[2024-01-22 07:00] LABS: CREATININE 1.1 mg/dL (0.55-1.3)
[2024-01-22 07:02] LABS: BILIRUBIN,TOTAL 0.6 mg/dL (0.2-1); TOT PROT 5.5 g/dl (6.4-8.2)
[2024-01-22 09:45] LABS: ANISOCYTOSIS 0; MACROCYTOSIS 0
[2024-01-22] MEDS: MIDODRINE HCL 5 MG TABLET PO SCH (12:08)
[2024-01-22 15:11] LABS: ARTERIAL BLD GAS O2 SATURATION 95.6 % (95-98); ARTERIAL BLOOD GAS BASE EXCESS 5.3 mmol/L (-2-2); ARTERIAL BLOOD GAS PO2 83.5 mmHg (80-100); ARTERIAL BLOOD GAS pH 7.358 (7.350-7.450)
[2024-01-22 15:12] LABS: ALLENS TEST POSITIVE
[2024-01-22 15:13] LABS: VENT MODE S/T MODE; VENT RATE 14
[2024-01-22] MEDS ORDERED: DEXTROSE 50%-WATER 25 GM/50 ML DISP.SYRIN ONE (17:12)
[2024-01-22] MEDS: PIPERACILLIN/TAZOB 3.375 GM 3.375 GM in DEXTROSE 5%-WATER - 50 ML IVPB SCH (17:33)
[2024-01-22] MEDS: DEXTROSE 50%-WATER 25 GM/50 ML DISP.SYRIN IVPUSH ONE (17:33)
[2024-01-22 22:37] VITALS: BMI 36.6
[2024-01-23 05:46] LABS: ARTERIAL BLD GAS O2 SATURATION 92.6 % (95-98); ARTERIAL BLOOD GAS BASE EXCESS 4.4 mmol/L (-2-2); ARTERIAL BLOOD GAS PO2 70.3 mmHg (80-100); ARTERIAL BLOOD GAS pH 7.333 (7.350-7.450)
[2024-01-23 05:47] LABS: ALLENS TEST POSITIVE
[2024-01-23 07:48] LABS: BASO % 2.7 % (0-2.0); EOS % 7.8 % (0-4.5); HEMATOCRIT 34.7 % (32.4-45.2); HEMOGLOBIN 11.1 GM/dL (10.7-15.3); LYMPH % 21.6 % (8-40); MEAN CELL VOLUME 90.6 fl (80-96); MEAN PLT VOLUME 9.2 fl (7.5-11.1); MONO % 10.9 % (3.8-10.2); PLATELET COUNT 151 10^3/uL (134-434); RBC 3.84 M/mm3 (3.60-5.2); WHITE BLOOD COUNT 3.8 K/mm3 (4.0-10.0)
[2024-01-23 08:12] LABS: POTASSIUM 4.2 mmol/L (3.5-5.1)
[2024-01-23 08:18] LABS: CALCIUM 8.8 mg/dL (8.5-10.1)
[2024-01-23 08:20] LABS: BLOOD UREA NITROGEN 17.6 mg/dL (7-18); MAGNESIUM 2.5 mg/dL (1.8-2.4)
[2024-01-23 08:22] LABS: CREATININE 1.1 mg/dL (0.55-1.3); PHOSPHOROUS 3.5 mg/dL (2.5-4.9)
[2024-01-23 08:24] LABS: BILIRUBIN,TOTAL 0.5 mg/dL (0.2-1); TOT PROT 5.5 g/dl (6.4-8.2)
[2024-01-23] MEDS: FUROSEMIDE 40 MG/4 ML INJECTABLE VIAL IVPUSH ONE (13:27)
[2024-01-23] MEDS: oxyCODONE HCL 5 MG TABLET PO PRN (22:33)
[2024-01-24 06:55] LABS: BASO % 2.3 % (0-2.0); EOS % 7.8 % (0-4.5); HEMATOCRIT 33.8 % (32.4-45.2); HEMOGLOBIN 10.8 GM/dL (10.7-15.3); LYMPH % 25.1 % (8-40); MCHC 31.8 g/dl (32.0-36.0); MEAN PLT VOLUME 9.1 fl (7.5-11.1); NEUT % 53.8 % (42.8-82.8); PLATELET COUNT 170 10^3/uL (134-434); RBC 3.72 M/mm3 (3.60-5.2); RDW 16.4 % (11.6-15.6)
[2024-01-24 07:06] LABS: POTASSIUM 3.7 mmol/L (3.5-5.1)
[2024-01-24 07:08] LABS: CALCIUM 8.5 mg/dL (8.5-10.1)
[2024-01-24 07:09] LABS: ALBUMIN 2.1 g/dl (3.4-5.0); BLOOD UREA NITROGEN 17.2 mg/dL (7-18); MAGNESIUM 2.4 mg/dL (1.8-2.4)
[2024-01-24 07:12] LABS: CREATININE 1.3 mg/dL (0.55-1.3); PHOSPHOROUS 3.4 mg/dL (2.5-4.9)
[2024-01-24 07:13] LABS: BILIRUBIN,TOTAL 0.5 mg/dL (0.2-1); TOT PROT 5.8 g/dl (6.4-8.2)
[2024-01-26 02:12] VITALS: TEMP 97.8
[2024-01-26] MEDS: MIDODRINE HCL 5 MG TABLET PO SCH (13:25)
[2024-01-26 18:28] VITALS: BP 117/70; PULSE 61; RESP 18
== END 2024-01-26 19:05 | DRG 207 ==
LOC: JER 15:40 → JERBED 19:33 → JICU 21:39
PROVIDERS: ADMIT Internal Medicine; ATTEND Internal Medicine
PROC: 5A1955Z Respiratory Ventilation, Greater than 96 Consecutive Hours (ICD-10-PCS; principal; 2024-01-14)
PROC: 0BH17EZ Insertion of Endotracheal Airway into Trachea, Via Natural or Artificial Opening (ICD-10-PCS; 2024-01-14)
PROC: 05HM33Z Insertion of Infusion Device into Right Internal Jugular Vein, Percutaneous Approach (ICD-10-PCS; 2024-01-18)
PROC: B543ZZA Ultrasonography of Right Jugular Veins, Guidance (ICD-10-PCS; 2024-01-18)
DX: J96.21 Acute and chronic respiratory failure with hypoxia (principal); I21.4 Non-ST elevation (NSTEMI) myocardial infarction; R53.2 Functional quadriplegia; I50.33 Acute on chronic diastolic (congestive) heart failure; J18.9 Pneumonia, unspecified organism; E66.2 Morbid (severe) obesity with alveolar hypoventilation; I13.0 Hypertensive heart and chronic kidney disease with heart failure and stage 1 through stage 4 chronic kidney disease, or unspecified chronic kidney disease; J44.0 Chronic obstructive pulmonary disease with (acute) lower respiratory infection; N17.9 Acute kidney failure, unspecified; E87.3 Alkalosis; E87.29 Other acidosis; J96.22 Acute and chronic respiratory failure with hypercapnia; F32.9 Major depressive disorder, single episode, unspecified; K74.60 Unspecified cirrhosis of liver; J44.9 Chronic obstructive pulmonary disease, unspecified; I11.0 Hypertensive heart disease with heart failure; I73.9 Peripheral vascular disease, unspecified; E78.5 Hyperlipidemia, unspecified; Z99.81 Dependence on supplemental oxygen
CPT/HCPCS: 0241U-QW; 31500; 36415; 36600; 70450-TC; 71045-TC-FY; 76775-TC; 80048; 80053; 81003; 82436; 82550; 82803; 82962; 83605; 83735; 83880; 84100; 84133; 84300; 84484; 85025; 85027; 85610; 85730; 86850; 86900; 86901; 87040; 87070; 87077; 87081; 87086; 87186; 87205; 87635; 87899; 93005; 93010; 93306-TC; 94002; 94660; 97162-GP; 99285-25; J1644

== ENCOUNTER 2024-02-16 12:57 | Inpatient (IN) | payer OTHER, BC ==
[2024-02-16 14:59] LABS: VENOUS BASE EXCESS 11.4 mmol/L (-2-2)
[2024-02-16 15:02] LABS: VENOUS PCO2 142.3 mmHg (38-52); VENOUS PH 7.129 (7.310-7.410)
[2024-02-16 15:04] LABS: EOS % 0.7 % (0-4.5); HEMATOCRIT 40.5 % (32.4-45.2); HEMOGLOBIN 12.5 GM/dL (10.7-15.3); LYMPH % 5.7 % (8-40); MCH 29.6 pg (25.7-33.7); MCHC 30.9 g/dl (32.0-36.0); MEAN CELL VOLUME 95.7 fl (80-96); MEAN PLT VOLUME 8.9 fl (7.5-11.1); MONO % 6.9 % (3.8-10.2); NEUT % 85.7 % (42.8-82.8); RBC 4.23 M/mm3 (3.60-5.2)
[2024-02-16 15:06] LABS: INR 0.95 (0.83-1.09); PROTHROMBIN TIME (PATIENT) 10.9 SEC (9.7-13.0)
[2024-02-16 15:07] LABS: PLATELET COUNT 212 10^3/uL (134-434); WHITE BLOOD COUNT 9.1 K/mm3 (4.0-10.0)
[2024-02-16 15:16] LABS: POTASSIUM 4.8 mmol/L (3.5-5.1)
[2024-02-16 15:19] LABS: ALBUMIN 2.8 g/dl (3.4-5.0); CALCIUM 9.8 mg/dL (8.5-10.1)
[2024-02-16 15:20] LABS: BLOOD UREA NITROGEN 21.1 mg/dL (7-18); MAGNESIUM 2.4 mg/dL (1.8-2.4)
[2024-02-16 15:23] LABS: PHOSPHOROUS 3.8 mg/dL (2.5-4.9)
[2024-02-16 15:24] LABS: BILIRUBIN,TOTAL 0.6 mg/dL (0.2-1); TOT PROT 6.7 g/dl (6.4-8.2)
[2024-02-16 17:51] LABS: EPI CELLS 5 /uL (0-25.1); HYALINE CASTS 3 /uL (0-3.1); PH,URINE 6.5 (5.0-8.0); URINE APPEARANCE TURBID; URINE BACTERIA 3907 /uL (0-1359); URINE BILIRUBIN NEGATIVE (NEGATIVE); URINE COLOR YELLOW; URINE GLUCOSE (UA) NEGATIVE (NEGATIVE); URINE KETONE NEGATIVE (NEGATIVE); URINE LEUK ESTERASE 3+ (NEGATIVE); URINE NITRITE POSITIVE (NEGATIVE); URINE PROTEIN 3+ (NEGATIVE); URINE RBC 3244 /uL (0-23.9); URINE WBC 9341 /uL (0-25.8)
[2024-02-16 20:27] LABS: VENOUS BASE EXCESS 6.8 mmol/L (-2-2); VENOUS O2 SATURATION 49.1 % (70-80); VENOUS PH 7.304 (7.310-7.410)
[2024-02-16 20:28] LABS: VENOUS PCO2 73.2 mmHg (38-52)
[2024-02-16] MEDS ORDERED: HEPARIN NA (PORCINE) 5,000 UNITS/ML 1ML VIAL ONE (21:58)
[2024-02-16] MEDS ORDERED: methylPREDNISolone NA SUCC 40 MG/1 ML VIAL ONE (21:59)
[2024-02-16] MEDS ORDERED: PIPERACILLIN/TAZOB 3.375 GM 3.375 GM/50 ML BAG IVPB ONE (21:59)
[2024-02-16] MEDS: methylPREDNISolone NA SUCC 40 MG/1 ML VIAL IVPUSH SCH (22:13)
[2024-02-16] MEDS: PIPERACILLIN/TAZOB 3.375 GM 3.375 GM in DEXTROSE 5%-WATER - 50 ML IVPB SCH (22:13)
[2024-02-16] MEDS: HEPARIN NA (PORCINE) 5,000 UNITS/ML 1ML VIAL SQ SCH (22:13)
[2024-02-16 22:31] LABS: ARTERIAL BLOOD GAS BASE EXCESS 9.9 mmol/L (-2-2); ARTERIAL BLOOD GAS PO2 80.2 mmHg (80-100)
[2024-02-16 22:33] LABS: ALLENS TEST POSITIVE
[2024-02-16 22:38] LABS: VENT RATE 15
[2024-02-16] MEDS: INSULIN (NOVOLOG) ASPART 100 UNITS/ML 10ML VIAL SQ SCH (23:34)
[2024-02-16] MEDS ORDERED: FUROSEMIDE 40 MG/4 ML INJECTABLE VIAL ONE (23:36)
[2024-02-16] MEDS: FUROSEMIDE 40 MG/4 ML INJECTABLE VIAL IVPUSH SCH (23:42)
[2024-02-17] MEDS: ALBUTEROL SO4 2.5/IPRATROPIUM 0.5 INH SOL 3 ML VIAL.NEB. NEB SCH (07:25)
[2024-02-17 09:21] LABS: HEMATOCRIT 36.5 % (32.4-45.2); HEMOGLOBIN 11.7 GM/dL (10.7-15.3); MCH 29.9 pg (25.7-33.7); MCHC 31.9 g/dl (32.0-36.0); MEAN CELL VOLUME 93.5 fl (80-96); MEAN PLT VOLUME 9.4 fl (7.5-11.1); PLATELET COUNT 142 10^3/uL (134-434); RDW 17.1 % (11.6-15.6); WHITE BLOOD COUNT 3.9 K/mm3 (4.0-10.0)
[2024-02-17 09:51] LABS: POTASSIUM 3.8 mmol/L (3.5-5.1)
[2024-02-17] MEDS: PANTOPRAZOLE SODIUM 40 MG VIAL IVPUSH SCH (10:03)
[2024-02-17] MEDS: MIDODRINE HCL 5 MG TABLET PO SCH (10:05)
[2024-02-17 10:08] LABS: ANISOCYTOSIS 0; MACROCYTOSIS 0
[2024-02-17 10:11] LABS: ALBUMIN 2.8 g/dl (3.4-5.0)
[2024-02-17 10:12] LABS: CALCIUM 9.8 mg/dL (8.5-10.1)
[2024-02-17 10:13] LABS: BLOOD UREA NITROGEN 23.2 mg/dL (7-18); MAGNESIUM 2.2 mg/dL (1.8-2.4)
[2024-02-17 10:15] LABS: CREATININE 1.1 mg/dL (0.55-1.3)
[2024-02-17 10:16] LABS: BILIRUBIN,TOTAL 0.8 mg/dL (0.2-1); TOT PROT 6.4 g/dl (6.4-8.2)
[2024-02-17 10:21] LABS: N-TERMINAL BNP 1285.4 pg/ml (5-125)
[2024-02-17] MEDS ORDERED: INSULIN ASPART SLIDING SCALE (NOVOLOG) 1 VIAL SQ ONE (14:00)
[2024-02-17] MEDS: VENLAFAXINE HCL 75 MG E.R. CAPSULES PO SCH (14:02)
[2024-02-17 14:49] LABS: BF WBC & OTHER NUCLEATED CELLS 48123 /mm3
[2024-02-17 16:00] LABS: BODY FLUID MACROPHAGES 57 %
[2024-02-17] MEDS: CHLORHEXIDINE GLUCONATE 4% CLEANSER FOR DECOLONIZATION TP SCH (16:17)
[2024-02-17] MEDS: MUPIROCIN 2% TOPICAL OINTMENT FOR DECOLONIZATION NS SCH (16:17)
[2024-02-17] MEDS: PIPERACILLIN/TAZOB 3.375 GM 50 ML IVPB SCH (18:20)
[2024-02-17] MEDS: PIPERACILLIN/TAZOB 3.375 GM 3.375 GM in DEXTROSE 5%-WATER - 50 ML IVPB SCH (22:05)
[2024-02-18 12:10] LABS: BODY FLUID ALBUMIN 2.3 g/dL (Not Estab.)
[2024-02-18] MEDS: MELATONIN 5 MG TABLETS NGT PRN (21:34)
[2024-02-19] MEDS: MULTIVIT-MINERALS ORAL LIQUID PO SCH (23:06)
[2024-02-19] MEDS: AMINO ACIDS/PROTEIN HYDROLYS 30 ML LIQUID.PKT PO SCH (23:07)
[2024-02-19] MEDS: ASCORBIC ACID 500 MG TABLET (FP) PO SCH (23:08)
[2024-02-20 07:35] LABS: HEMATOCRIT 36.8 % (32.4-45.2); HEMOGLOBIN 11.8 GM/dL (10.7-15.3); LYMPH % 5.2 % (8-40); MCH 29.4 pg (25.7-33.7); MCHC 32.1 g/dl (32.0-36.0); MEAN CELL VOLUME 91.5 fl (80-96); MEAN PLT VOLUME 9.1 fl (7.5-11.1); MONO % 8.7 % (3.8-10.2); NEUT % 86.1 % (42.8-82.8); PLATELET COUNT 105 10^3/uL (134-434); RBC 4.03 M/mm3 (3.60-5.2); WHITE BLOOD COUNT 3.8 K/mm3 (4.0-10.0)
[2024-02-20 07:36] LABS: CHLORIDE 90 mmol/L (98-107); SODIUM 140 mmol/L (136-145)
[2024-02-20 07:46] LABS: ALBUMIN 2.6 g/dl (3.4-5.0); CO2 42 mmol/L (21-32); GLUCOSE,RANDOM 153 mg/dL (74-106)
[2024-02-20 07:49] LABS: CREATININE 1.5 mg/dL (0.55-1.3); SGOT/AST 43 U/L (15-37); SGPT/ALT 30 U/L (13-61)
[2024-02-20 07:51] LABS: BILIRUBIN,TOTAL 0.6 mg/dL (0.2-1); TOT PROT 6.1 g/dl (6.4-8.2)
[2024-02-20 07:52] LABS: ALK PHOS 128 U/L (45-117)
[2024-02-20 07:53] LABS: BLOOD UREA NITROGEN 31.6 mg/dL (7-18)
[2024-02-20 07:58] LABS: ANION GAP 8 mmol/L (4-13); CALCIUM 8.2 mg/dL (8.5-10.1); POTASSIUM 2.8 mmol/L (3.5-5.1)
[2024-02-20] MEDS ORDERED: INSULIN ASPART SLIDING SCALE (NOVOLOG) 1 VIAL SQ ONE (08:10)
[2024-02-20] MEDS: POTASSIUM CHLORIDE ORAL LIQUID 20 MEQ/15 ML PO ONE (09:51)
[2024-02-20] MEDS: POTASSIUM CHLORIDE ORAL LIQUID 20 MEQ/15 ML PO SCH (09:51)
[2024-02-20] MEDS: KCL 10 MEQ IVPB 10 MEQ/100 ML INFUS.BAG IVPB SCH (09:52)
[2024-02-20 15:40] LABS: POTASSIUM 3.7 mmol/L (3.5-5.1)
[2024-02-20 15:42] LABS: CALCIUM 8.7 mg/dL (8.5-10.1)
[2024-02-20 15:43] LABS: BLOOD UREA NITROGEN 34.7 mg/dL (7-18); MAGNESIUM 1.7 mg/dL (1.8-2.4)
[2024-02-20 15:46] LABS: CREATININE 1.6 mg/dL (0.55-1.3)
[2024-02-20] MEDS: INSULIN ASPART SLIDING SCALE (NOVOLOG) 1 VIAL SQ SCH (21:51)
[2024-02-21] MEDS: ACETAMINOPHEN 1000 MG/100 ML BAG IVPB ONE (06:09)
[2024-02-21 09:19] LABS: HEMATOCRIT 38.1 % (32.4-45.2); HEMOGLOBIN 12.4 GM/dL (10.7-15.3); LYMPH % 5.1 % (8-40); MCH 29.2 pg (25.7-33.7); MCHC 32.5 g/dl (32.0-36.0); MEAN PLT VOLUME 9.9 fl (7.5-11.1); MONO % 6.5 % (3.8-10.2); NEUT % 88.4 % (42.8-82.8); PLATELET COUNT 97 10^3/uL (134-434); RBC 4.24 M/mm3 (3.60-5.2); RDW 16.9 % (11.6-15.6); WHITE BLOOD COUNT 3.5 K/mm3 (4.0-10.0)
[2024-02-21 09:45] LABS: POTASSIUM 3.4 mmol/L (3.5-5.1)
[2024-02-21 09:50] LABS: ALBUMIN 2.9 g/dl (3.4-5.0); BLOOD UREA NITROGEN 39.1 mg/dL (7-18); CALCIUM 8.7 mg/dL (8.5-10.1)
[2024-02-21 09:53] LABS: CREATININE 1.5 mg/dL (0.55-1.3)
[2024-02-21 09:55] LABS: TOT PROT 6.5 g/dl (6.4-8.2)
[2024-02-21] MEDS: TORSEMIDE 20 MG TABLET (FP) PO SCH (10:48)
[2024-02-21] MEDS: predniSONE 10 MG TABLET (UD) PO SCH (10:48)
[2024-02-21] MEDS: POTASSIUM CHLORIDE ORAL LIQUID 20 MEQ/15 ML PO ONE (10:58)
[2024-02-21 15:53] LABS: BASO % 0.1 % (0-2.0); HEMATOCRIT 39.1 % (32.4-45.2); HEMOGLOBIN 12.7 GM/dL (10.7-15.3); LYMPH % 2.9 % (8-40); MCH 29.1 pg (25.7-33.7); MCHC 32.4 g/dl (32.0-36.0); MEAN CELL VOLUME 89.7 fl (80-96); MEAN PLT VOLUME 8.7 fl (7.5-11.1); MONO % 8.2 % (3.8-10.2); NEUT % 88.8 % (42.8-82.8); PLATELET COUNT 103 10^3/uL (134-434); RBC 4.35 M/mm3 (3.60-5.2); RDW 17.3 % (11.6-15.6); WHITE BLOOD COUNT 5.2 K/mm3 (4.0-10.0)
[2024-02-21] MEDS: traMADol HCL 50 MG TABLET PO ONE (18:38)
[2024-02-22 07:14] LABS: EOS % 0.4 % (0-4.5); HEMOGLOBIN 11.7 GM/dL (10.7-15.3); LYMPH % 12.4 % (8-40); MCH 28.8 pg (25.7-33.7); MCHC 31.7 g/dl (32.0-36.0); MONO % 9.7 % (3.8-10.2); NEUT % 77.5 % (42.8-82.8); PLATELET COUNT 95 10^3/uL (134-434); RBC 4.07 M/mm3 (3.60-5.2); WHITE BLOOD COUNT 4.9 K/mm3 (4.0-10.0)
[2024-02-22 09:07] LABS: POTASSIUM 3.3 mmol/L (3.5-5.1)
[2024-02-22 09:09] LABS: ALBUMIN 2.7 g/dl (3.4-5.0); BLOOD UREA NITROGEN 45.4 mg/dL (7-18); CALCIUM 8.5 mg/dL (8.5-10.1)
[2024-02-22 09:12] LABS: CREATININE 1.5 mg/dL (0.55-1.3)
[2024-02-22 09:14] LABS: BILIRUBIN,TOTAL 0.5 mg/dL (0.2-1)
[2024-02-22] MEDS: CEFPODOXIME PROXETIL 200 MG TABLET [NF] PO SCH (10:01)
[2024-02-22] MEDS: TORSEMIDE 20 MG TABLET (FP) PO SCH (11:12)
[2024-02-22] MEDS: POTASSIUM CHLORIDE ORAL LIQUID 20 MEQ/15 ML PO ONE (12:34)
[2024-02-22] MEDS: ACETAMINOPHEN 1000 MG/100 ML BAG IVPB ONE (22:55)
[2024-02-23] MEDS: GABAPENTIN 100 MG CAPSULE PO SCH (17:23)
[2024-02-23] MEDS: ACETAMINOPHEN 325 MG TABLET (FP) PO PRN (21:53)
[2024-02-24 09:22] VITALS: BP 108/58; PULSE 76; RESP 20; TEMP 97.9
[2024-02-24] MEDS: FUROSEMIDE 40 MG/4 ML INJECTABLE VIAL IVPUSH ONE (11:35)
[2024-02-24 16:13] VITALS: BMI 32.2
== END 2024-02-24 11:41 | DRG 291 ==
LOC: JER 12:57 → JERBED 20:54 → J4W 02-17 00:30
PROVIDERS: ADMIT Family Medicine; ATTEND Family Medicine
PROC: 0W993ZX Drainage of Right Pleural Cavity, Percutaneous Approach, Diagnostic (ICD-10-PCS; principal; 2024-02-17)
DX: I11.0 Hypertensive heart disease with heart failure (principal); I50.33 Acute on chronic diastolic (congestive) heart failure; J96.22 Acute and chronic respiratory failure with hypercapnia; J96.21 Acute and chronic respiratory failure with hypoxia; N39.0 Urinary tract infection, site not specified; E87.0 Hyperosmolality and hypernatremia; C83.30 Diffuse large B-cell lymphoma, unspecified site; J91.0 Malignant pleural effusion; J44.9 Chronic obstructive pulmonary disease, unspecified; E78.5 Hyperlipidemia, unspecified; D72.819 Decreased white blood cell count, unspecified; E66.9 Obesity, unspecified; Z68.32 Body mass index [BMI] 32.0-32.9, adult; D69.6 Thrombocytopenia, unspecified
CPT/HCPCS: 36415; 36600; 70450-TC; 71045-TC-FY; 71046-TC-FY; 71250-TC; 76942; 80048; 80053; 81003; 82042; 82150; 82465; 82607; 82746; 82803; 82945; 82962; 83036; 83615; 83735; 83880; 83986; 84100; 84157; 84443; 84478; 84484; 85025; 85610; 85730; 86780; 86850; 86900; 86901; 87040; 87070; 87075; 87086; 87102; 87116; 87186; 87205; 87206; 87210; 88108; 88305-TC; 88341-TC; 88342-TC; 93005; 93010; 94640; 94660; 99285-25; J0131; J1644

== ENCOUNTER 2024-08-16 10:16 | Inpatient (IN) | payer OTHER, BC ==
[2024-08-16 11:10] LABS: HEMOGLOBIN 12.2 g/dL (11.2-15.7)
[2024-08-16 11:11] LABS: MCHC 29.8 g/dl (32.2-35.5); MEAN CELL VOLUME 91.5 fl (79.4-94.8); MEAN PLT VOLUME 11.6 fl (9.4-12.3); PLATELET COUNT 84 x10^3/uL (182-369); RDW 17.1 % (12.4-16.6)
[2024-08-16 11:17] LABS: INR 1.2 (0.83-1.09); PROTHROMBIN TIME (PATIENT) 13.2 SEC (9.7-13.0); VENOUS BASE EXCESS -5.7 mmol/L (-2-2); VENOUS PCO2 54.2 mmHg (38-52); VENOUS PH 7.23 (7.310-7.410)
[2024-08-16 11:19] LABS: ACTIVATED PTT 31.5 SECONDS (25.2-36.5)
[2024-08-16 11:42] LABS: EPI CELLS 14 /uL (0-25.1); HYALINE CASTS 9 /uL (0-3.1); URINE APPEARANCE TURBID; URINE BILIRUBIN 2+ (NEGATIVE); URINE COLOR ORANGE; URINE GLUCOSE (UA) NEGATIVE (NEGATIVE); URINE KETONE NEGATIVE (NEGATIVE); URINE LEUK ESTERASE 3+ (NEGATIVE); URINE NITRITE POSITIVE (NEGATIVE); URINE PROTEIN 2+ (NEGATIVE); URINE WBC 5474 /uL (0-25.8)
[2024-08-16] MEDS ORDERED: VANCOMYCIN 1 GM PREMIX (F) 1 GM/200 ML BAG ONE (11:54)
[2024-08-16] MEDS ORDERED: PIPERACILLIN/TAZOB 4.5 GM 4.5 GM/100 ML BAG IVPB ONE (11:54)
[2024-08-16] MEDS: PIPERACILLIN/TAZOB 4.5 GM 4.5 GM in DEXTROSE 5%-WATER 100 ML IVPB ONE (12:06)
[2024-08-16] MEDS: LACTATED RINGERS SOLUTION 1000 ML INFUS.BAG IV ONE (12:18)
[2024-08-16] MEDS ORDERED: ACETAMINOPHEN INJECTION 100 ML ONE (12:22)
[2024-08-16] MEDS: ACETAMINOPHEN 1000 MG/100 ML BAG IVPB ONE (12:31)
[2024-08-16 12:36] LABS: LACTIC ACID 2.6 mmol/L (0.4-2.0)
[2024-08-16 12:59] LABS: URINE BACTERIA 302.6 /uL (0-1359); URINE RBC 4491.9 /uL (0-23.9); YEAST NONE SEEN (NEGATIVE)
[2024-08-16] MEDS: VANCOMYCIN 1,000 MG in DEXTROSE 5%-WATER - 250 ML IVPB ONE (13:01)
[2024-08-16 13:07] LABS: POTASSIUM 5.3 mmol/L (3.5-5.1)
[2024-08-16 13:09] LABS: CALCIUM 8.6 mg/dL (8.5-10.1)
[2024-08-16 13:10] LABS: BLOOD UREA NITROGEN 61.7 mg/dL (7-18)
[2024-08-16 13:14] LABS: BILIRUBIN,TOTAL 1.7 mg/dL (0.2-1); TOT PROT 5.5 g/dl (6.4-8.2)
[2024-08-16 13:45] LABS: LACTIC ACID 3.3 mmol/L (0.4-2.0)
[2024-08-16] MEDS: SODIUM CHLORIDE 0.9% 500 ML INFUS.BAG IV ONE ×2 (13:49→16:14)
[2024-08-16] MEDS: MIDODRINE HCL 5 MG TABLET PO SCH (17:41)
[2024-08-16 18:49] VITALS: BMI 32.3
[2024-08-16 18:49] LABS: LACTIC ACID 2.6 mmol/L (0.4-2.0)
[2024-08-16] MEDS: ALBUTEROL SO4 2.5/IPRATROPIUM 0.5 INH SOL 3 ML VIAL.NEB. NEB SCH (19:54)
[2024-08-16] MEDS: PIPERACILLIN/TAZOB 2.25 GM 2.25 GM in DEXTROSE 5%-WATER - 50 ML IVPB SCH (21:51)
[2024-08-16] MEDS: SODIUM CHLORIDE 0.45% 1,000 ML IV SCH (21:51)
[2024-08-16] MEDS: POLYETHYLENE GLYCOL (HEALTHYLAX) 3350 17 GM PACKET PO SCH (21:52)
[2024-08-16] MEDS: MIRTAZAPINE 15 MG TABLET (FP) PO SCH (21:52)
[2024-08-16 22:19] LABS: LACTIC ACID 2.6 mmol/L (0.4-2.0)
[2024-08-16] MEDS: MEROPENEM 1 GM in DEXTROSE 5%-WATER 100 ML IVPB SCH (23:59)
[2024-08-17 00:23] LABS: ARTERIAL BLD GAS O2 SATURATION 91.3 % (95-98); ARTERIAL BLOOD GAS BASE EXCESS -7.1 mmol/L (-2-2); ARTERIAL BLOOD GAS PO2 70.2 mmHg (80-100); ARTERIAL BLOOD GAS pH 7.249 (7.350-7.450)
[2024-08-17 00:24] LABS: ALLENS TEST POSITIVE
[2024-08-17 06:48] LABS: MCHC 30.8 g/dl (32.2-35.5)
[2024-08-17 06:49] LABS: HEMATOCRIT 35.1 % (34.1-44.9); HEMOGLOBIN 10.8 g/dL (11.2-15.7); MEAN CELL VOLUME 88.6 fl (79.4-94.8); MEAN PLT VOLUME 12.9 fl (9.4-12.3); PLATELET COUNT 78 x10^3/uL (182-369); RDW 16.9 % (12.4-16.6)
[2024-08-17 07:49] LABS: POTASSIUM 3.7 mmol/L (3.5-5.1)
[2024-08-17 07:50] LABS: ALBUMIN 1.7 g/dl (3.4-5.0); CALCIUM 8.1 mg/dL (8.5-10.1)
[2024-08-17 07:51] LABS: BLOOD UREA NITROGEN 63.7 mg/dL (7-18)
[2024-08-17 07:54] LABS: CREATININE 2.8 mg/dL (0.55-1.3); PHOSPHOROUS 4.6 mg/dL (2.5-4.9)
[2024-08-17 07:55] LABS: BILIRUBIN,TOTAL 1.4 mg/dL (0.2-1); TOT PROT 4.7 g/dl (6.4-8.2)
[2024-08-17] MEDS: VENLAFAXINE HCL 75 MG E.R. CAPSULES PO SCH (09:53)
[2024-08-17] MEDS: DEXTROSE 5%-NORMAL SALINE 1,000 ML IV SCH ×2 (15:48→17:00)
[2024-08-17] MEDS: VANCOMYCIN/WATER 1250 MG 1,250 MG/250 ML BAG IVPB ONE (17:20)
[2024-08-18 06:49] LABS: HEMATOCRIT 34.1 % (34.1-44.9); HEMOGLOBIN 10.5 g/dL (11.2-15.7); MCHC 30.8 g/dl (32.2-35.5); MEAN CELL VOLUME 86.8 fl (79.4-94.8); MEAN PLT VOLUME 12.4 fl (9.4-12.3); PLATELET COUNT 63 x10^3/uL (182-369); RDW 16.8 % (12.4-16.6)
[2024-08-18 07:18] LABS: ALBUMIN 1.7 g/dl (3.4-5.0); CALCIUM 8.7 mg/dL (8.5-10.1); MAGNESIUM 2.1 mg/dL (1.8-2.4)
[2024-08-18 07:19] LABS: BLOOD UREA NITROGEN 69.6 mg/dL (7-18)
[2024-08-18 07:23] LABS: TOT PROT 4.5 g/dl (6.4-8.2)
[2024-08-18] MEDS: POTASSIUM CHLORIDE ORAL LIQUID 20 MEQ/15 ML PO SCH (10:01)
[2024-08-18] MEDS ORDERED: PIPERACILLIN/TAZOB 2.25 GM 2.25 GM in DEXTROSE 5%-WATER - 50 ML IVPB SCH (18:00)
[2024-08-19 07:26] LABS: HEMATOCRIT 35.9 % (34.1-44.9); HEMOGLOBIN 11.3 g/dL (11.2-15.7); MCHC 31.5 g/dl (32.2-35.5); MEAN CELL VOLUME 86.1 fl (79.4-94.8); MEAN PLT VOLUME 12.2 fl (9.4-12.3); PLATELET COUNT 63 x10^3/uL (182-369); RDW 17.1 % (12.4-16.6)
[2024-08-19 07:51] LABS: CALCIUM 8.3 mg/dL (8.5-10.1)
[2024-08-19 07:52] LABS: MAGNESIUM 2.2 mg/dL (1.8-2.4)
[2024-08-19 07:55] LABS: CREATININE 2.8 mg/dL (0.55-1.3)
[2024-08-19] MEDS: POTASSIUM CHLORIDE ORAL LIQUID 20 MEQ/15 ML PO SCH (12:05)
[2024-08-19] MEDS: POTASSIUM CHLORIDE 20 MEQ in DEXTROSE 5%-NORMAL SALINE 990 ML IV SCH (12:06)
[2024-08-19] MEDS: D5-NS + 20 MEQ KCL - 20 MEQ/1,000 ML INFUS.BAG IV SCH ×2 (12:06→13:17)
[2024-08-20 08:06] LABS: HEMATOCRIT 36.4 % (34.1-44.9); HEMOGLOBIN 11.3 g/dL (11.2-15.7); MEAN CELL VOLUME 87.3 fl (79.4-94.8); MEAN PLT VOLUME 11.6 fl (9.4-12.3); PLATELET COUNT 71 x10^3/uL (182-369); RDW 17.1 % (12.4-16.6)
[2024-08-20 08:31] LABS: POTASSIUM 3.4 mmol/L (3.5-5.1)
[2024-08-20 08:33] LABS: CALCIUM 7.9 mg/dL (8.5-10.1)
[2024-08-20 08:34] LABS: ALBUMIN 1.7 g/dl (3.4-5.0); BLOOD UREA NITROGEN 56.9 mg/dL (7-18); MAGNESIUM 1.9 mg/dL (1.8-2.4)
[2024-08-20 08:37] LABS: CREATININE 2.5 mg/dL (0.55-1.3)
[2024-08-20 08:38] LABS: TOT PROT 5.1 g/dl (6.4-8.2)
[2024-08-20 08:39] LABS: BILIRUBIN,TOTAL 0.8 mg/dL (0.2-1)
[2024-08-20] MEDS: SODIUM CHLORIDE 0.45%/POT 20 MEQ/1,000 ML INFUS.BAG IV SCH (16:51)
[2024-08-21] MEDS: MIDODRINE HCL 5 MG TABLET PO SCH (10:40)
[2024-08-21] MEDS: AMINO ACIDS/PROTEIN HYDROLYS 30 ML LIQUID.PKT PO SCH (11:23)
[2024-08-21] MEDS: ACETAMINOPHEN 1000 MG/100 ML BAG IVPB PRN (12:03)
[2024-08-21] MEDS ORDERED: AMINO ACIDS 4.25%/D5W 1,000 ML IV SCH (12:59)
[2024-08-21] MEDS: AMINO ACIDS 4.25%/D5W 1,000 ML IV SCH (13:18)
[2024-08-21] MEDS: SODIUM CHLORIDE 0.45% 1,000 ML IV SCH (14:23)
[2024-08-22 11:26] LABS: HEMATOCRIT 41.4 % (34.1-44.9); HEMOGLOBIN 12.4 g/dL (11.2-15.7); MEAN PLT VOLUME 11.9 fl (9.4-12.3); PLATELET COUNT 104 x10^3/uL (182-369); RDW 16.7 % (12.4-16.6)
[2024-08-22 11:55] LABS: POTASSIUM 3.3 mmol/L (3.5-5.1)
[2024-08-22 11:58] LABS: CALCIUM 8.1 mg/dL (8.5-10.1)
[2024-08-22 11:59] LABS: ALBUMIN 1.8 g/dl (3.4-5.0)
[2024-08-22 12:02] LABS: CREATININE 1.6 mg/dL (0.55-1.3)
[2024-08-22 12:04] LABS: TOT PROT 5.5 g/dl (6.4-8.2)
[2024-08-22 12:05] LABS: BILIRUBIN,TOTAL 0.8 mg/dL (0.2-1)
[2024-08-22] MEDS: POTASSIUM CHLORIDE ORAL LIQUID 20 MEQ/15 ML PO ONE (13:57)
[2024-08-22] MEDS: KCL 10 MEQ IVPB 10 MEQ/100 ML INFUS.BAG IVPB SCH (13:57)
[2024-08-22] MEDS: SODIUM CHLORIDE 0.45%/POT 20 MEQ/1,000 ML INFUS.BAG IV SCH (15:26)
[2024-08-22] MEDS: ACETAMINOPHEN 325 MG TABLET (FP) PO PRN (18:51)
[2024-08-23 07:07] LABS: POTASSIUM 3.2 mmol/L (3.5-5.1)
[2024-08-23 07:22] LABS: ALBUMIN 1.7 g/dl (3.4-5.0)
[2024-08-23 07:26] LABS: CREATININE 1.4 mg/dL (0.55-1.3)
[2024-08-23 07:27] LABS: BILIRUBIN,TOTAL 0.8 mg/dL (0.2-1); TOT PROT 5.1 g/dl (6.4-8.2)
[2024-08-23 07:58] LABS: ABSOLUTE IMMATURE GRANULOCYTES 0.14 x10^3/uL (0.0-0.031); BASOPHILS # 0.03 x10^3/uL (0.01-0.08); EOSINOPHIL % 0.7 % (0.7-5.8); EOSINOPHILS # 0.13 x10^3/uL (0.04-0.36); HEMATOCRIT 36.4 % (34.1-44.9); HEMOGLOBIN 11.4 g/dL (11.2-15.7); MCHC 31.3 g/dl (32.2-35.5); MEAN PLT VOLUME 12.2 fl (9.4-12.3); MONOCYTE # 0.75 x10^3/uL (0.24-0.86); MONOCYTE % 3.9 % (4.7-12.5); PLATELET COUNT 166 x10^3/uL (182-369); RDW 16.4 % (12.4-16.6)
[2024-08-23] MEDS ORDERED: POTASSIUM CHLORIDE ORAL LIQUID 20 MEQ/15 ML PO ONE (09:15)
[2024-08-23] MEDS: MEROPENEM 1 GM in DEXTROSE 5%-WATER 100 ML IVPB SCH (10:38)
[2024-08-23] MEDS: ACETAMINOPHEN 1000 MG/100 ML BAG IVPB PRN (10:38)
[2024-08-23] MEDS: POTASSIUM CHLORIDE ORAL LIQUID 20 MEQ/15 ML PO ONE (12:40)
[2024-08-23] MEDS: COLLAGENASE CLOSTRIDIUM HIST. 30 GRAMS TUBE TP SCH (17:48)
[2024-08-24 06:34] LABS: ABSOLUTE IMMATURE GRANULOCYTES 0.13 x10^3/uL (0.0-0.031); BASOPHILS # 0.03 x10^3/uL (0.01-0.08); EOSINOPHIL % 0.8 % (0.7-5.8); EOSINOPHILS # 0.14 x10^3/uL (0.04-0.36); HEMATOCRIT 39.1 % (34.1-44.9); HEMOGLOBIN 12.1 g/dL (11.2-15.7); MCHC 30.9 g/dl (32.2-35.5); MEAN CELL VOLUME 87.1 fl (79.4-94.8); MEAN PLT VOLUME 11.7 fl (9.4-12.3); MONOCYTE # 0.61 x10^3/uL (0.24-0.86); MONOCYTE % 3.3 % (4.7-12.5); PLATELET COUNT 224 x10^3/uL (182-369); RDW 16.5 % (12.4-16.6)
[2024-08-24 06:53] LABS: POTASSIUM 3.5 mmol/L (3.5-5.1)
[2024-08-24 06:54] LABS: ALBUMIN 1.6 g/dl (3.4-5.0); BLOOD UREA NITROGEN 45.2 mg/dL (7-18)
[2024-08-24 06:58] LABS: CREATININE 1.5 mg/dL (0.55-1.3)
[2024-08-24 07:00] LABS: BILIRUBIN,TOTAL 0.6 mg/dL (0.2-1); TOT PROT 5.2 g/dl (6.4-8.2)
[2024-08-24] MEDS: ACETAMINOPHEN 1000 MG/100 ML BAG IVPB PRN (23:26)
[2024-08-25 07:04] LABS: ABSOLUTE IMMATURE GRANULOCYTES 0.09 x10^3/uL (0.0-0.031); BASOPHILS # 0.04 x10^3/uL (0.01-0.08); EOSINOPHIL % 0.9 % (0.7-5.8); EOSINOPHILS # 0.15 x10^3/uL (0.04-0.36); HEMATOCRIT 38.9 % (34.1-44.9); HEMOGLOBIN 11.8 g/dL (11.2-15.7); MCHC 30.3 g/dl (32.2-35.5); MEAN CELL VOLUME 88.6 fl (79.4-94.8); MEAN PLT VOLUME 10.9 fl (9.4-12.3); MONOCYTE # 0.73 x10^3/uL (0.24-0.86); MONOCYTE % 4.3 % (4.7-12.5); PLATELET COUNT 243 x10^3/uL (182-369); RDW 17.4 % (12.4-16.6)
[2024-08-25 07:53] LABS: ALBUMIN 1.7 g/dl (3.4-5.0); BILIRUBIN,TOTAL 0.5 mg/dL (0.2-1); BLOOD UREA NITROGEN 42.3 mg/dL (7-18); CALCIUM 8.3 mg/dL (8.5-10.1); CREATININE 1.3 mg/dL (0.55-1.3); POTASSIUM 3.8 mmol/L (3.5-5.1); TOT PROT 5.2 g/dl (6.4-8.2)
[2024-08-25] MEDS: AMMONIUM LACTATE 12% LOTION 225 GM BOTTLE TP PRN (10:09)
[2024-08-25] MEDS: oxyCODONE HCL 5 MG TABLET PO PRN (10:55)
[2024-08-25] MEDS: NYSTATIN 500,000 UNITS/5 ML SUSPENSION PO SCH (11:17)
[2024-08-26] MEDS: SODIUM CHLORIDE 250 ML IV STA (00:28)
[2024-08-26] MEDS: D5-LR+20 MEQ KCL - 20 MEQ/1,000 ML INFUS.BAG IV SCH (15:00)
[2024-08-26 19:15] VITALS: RESP 18
[2024-08-27 08:14] LABS: ALBUMIN 1.6 g/dl (3.4-5.0); BLOOD UREA NITROGEN 38.7 mg/dL (7-18); CALCIUM 8.3 mg/dL (8.5-10.1)
[2024-08-27 08:17] LABS: CREATININE 1.4 mg/dL (0.55-1.3)
[2024-08-27 08:18] LABS: BILIRUBIN,TOTAL 0.4 mg/dL (0.2-1); TOT PROT 5.1 g/dl (6.4-8.2)
[2024-08-27 09:01] LABS: ABSOLUTE IMMATURE GRANULOCYTES 0.09 x10^3/uL (0.0-0.031); BASOPHILS # 0.03 x10^3/uL (0.01-0.08); EOSINOPHIL % 0.6 % (0.7-5.8); EOSINOPHILS # 0.09 x10^3/uL (0.04-0.36); HEMATOCRIT 36.1 % (34.1-44.9); HEMOGLOBIN 10.8 g/dL (11.2-15.7); MCHC 29.9 g/dl (32.2-35.5); MEAN CELL VOLUME 90.9 fl (79.4-94.8); MEAN PLT VOLUME 11.6 fl (9.4-12.3); MONOCYTE # 0.72 x10^3/uL (0.24-0.86); MONOCYTE % 4.5 % (4.7-12.5); PLATELET COUNT 212 x10^3/uL (182-369); RDW 17.9 % (12.4-16.6)
[2024-08-27 19:07] VITALS: BP 105/70; PULSE 78; TEMP 97.5
[2024-08-31 07:06] LABS: PARATHYROID HORM INTACT 82 pg/mL (15-65)
== END 2024-08-27 18:45 | DRG 871 ==
LOC: JER 10:16 → JERBED 12:03 → J4S 15:13
PROVIDERS: ADMIT Internal Medicine; ATTEND Internal Medicine
PROC: 0T9130Z Drainage of Left Kidney with Drainage Device, Percutaneous Approach (ICD-10-PCS; principal; 2024-08-17)
DX: A41.9 Sepsis, unspecified organism (principal); G92.8 Other toxic encephalopathy; J18.9 Pneumonia, unspecified organism; J96.20 Acute and chronic respiratory failure, unspecified whether with hypoxia or hypercapnia; I50.33 Acute on chronic diastolic (congestive) heart failure; R65.21 Severe sepsis with septic shock; I21.4 Non-ST elevation (NSTEMI) myocardial infarction; N20.1 Calculus of ureter; N13.8 Other obstructive and reflux uropathy; N18.4 Chronic kidney disease, stage 4 (severe); N13.6 Pyonephrosis; I13.0 Hypertensive heart and chronic kidney disease with heart failure and stage 1 through stage 4 chronic kidney disease, or unspecified chronic kidney disease; N13.0 Hydronephrosis with ureteropelvic junction obstruction; N17.9 Acute kidney failure, unspecified; N39.0 Urinary tract infection, site not specified; K74.60 Unspecified cirrhosis of liver; K76.0 Fatty (change of) liver, not elsewhere classified; I73.9 Peripheral vascular disease, unspecified; J44.9 Chronic obstructive pulmonary disease, unspecified; I10 Essential (primary) hypertension; E66.9 Obesity, unspecified; Z68.32 Body mass index [BMI] 32.0-32.9, adult; E78.5 Hyperlipidemia, unspecified; L89.620 Pressure ulcer of left heel, unstageable; L89.159 Pressure ulcer of sacral region, unspecified stage
CPT/HCPCS: 0241U-QW; 36415; 36600; 50432; 70450-TC; 71045-TC-FY; 72131-TC; 74176-TC; 80048; 80053; 81003; 82310; 82607; 82803; 82962; 83036; 83605; 83735; 83970; 84100; 84443; 84484; 85025; 85027; 85610; 85730; 86780; 86850; 86900; 86901; 87040; 87076; 87086; 87102; 87116; 87186; 87206; 87210; 93005; 93010; 93925-TC; 94640; 97161-GP; 99285-25; E0186; G0480; J0131; J3480

== ENCOUNTER 2024-09-07 13:24 | Inpatient (IN) | payer OTHER, BC ==
[2024-09-07 15:13] LABS: EPI CELLS 8 /uL (0-25.1); HYALINE CASTS 9 /uL (0-3.1); URINE APPEARANCE TURBID; URINE BACTERIA 1520 /uL (0-1359); URINE BILIRUBIN NEGATIVE (NEGATIVE); URINE COLOR YELLOW; URINE GLUCOSE (UA) NEGATIVE (NEGATIVE); URINE KETONE NEGATIVE (NEGATIVE); URINE LEUK ESTERASE 3+ (NEGATIVE); URINE NITRITE NEGATIVE (NEGATIVE); URINE PROTEIN 2+ (NEGATIVE); URINE UROBILINOGEN 0.2 mg/dL (0.2-1.0); URINE WBC 3215 /uL (0-25.8)
[2024-09-07 15:32] LABS: URINE RBC 208.6 /uL (0-23.9); YEAST MODERATE (NEGATIVE)
[2024-09-07] MEDS ORDERED: PIPERACILLIN/TAZOB 4.5 GM 4.5 GM/100 ML BAG IVPB ONE (17:01)
[2024-09-07] MEDS ORDERED: VANCOMYCIN 1 GM PREMIX (F) 1 GM/200 ML BAG ONE (17:02)
[2024-09-07 17:09] LABS: ABSOLUTE IMMATURE GRANULOCYTES 0.02 x10^3/uL (0.0-0.031); BASOPHILS # 0.02 x10^3/uL (0.01-0.08); MCHC 30.3 g/dl (32.2-35.5); RDW 19.9 % (12.4-16.6)
[2024-09-07 17:11] LABS: EOSINOPHIL % 0.7 % (0.7-5.8); EOSINOPHILS # 0.05 x10^3/uL (0.04-0.36); HEMOGLOBIN 10.6 g/dL (11.2-15.7); MEAN CELL VOLUME 90.2 fl (79.4-94.8); MEAN PLT VOLUME 11.3 fl (9.4-12.3); MONOCYTE # 0.65 x10^3/uL (0.24-0.86); MONOCYTE % 9.1 % (4.7-12.5); PLATELET COUNT 116 x10^3/uL (182-369)
[2024-09-07] MEDS: PIPERACILLIN/TAZOB 4.5 GM 4.5 GM in DEXTROSE 5%-WATER 100 ML IVPB ONE (17:11)
[2024-09-07] MEDS: LACTATED RINGERS SOLUTION 1000 ML INFUS.BAG IV ONE (17:12)
[2024-09-07 17:22] LABS: INR 1.39 (0.83-1.09); PROTHROMBIN TIME (PATIENT) 15.1 SEC (9.7-13.0)
[2024-09-07 17:24] LABS: ACTIVATED PTT 32.2 SECONDS (25.2-36.5)
[2024-09-07 17:41] LABS: ALBUMIN 1.7 g/dl (3.4-5.0); BLOOD UREA NITROGEN 38.2 mg/dL (7-18); CALCIUM 8.8 mg/dL (8.5-10.1); MAGNESIUM 1.9 mg/dL (1.8-2.4)
[2024-09-07 17:44] LABS: CREATININE 1.2 mg/dL (0.55-1.3)
[2024-09-07 17:45] LABS: PHOSPHOROUS 4.3 mg/dL (2.5-4.9)
[2024-09-07] MEDS: VANCOMYCIN 1,000 MG in DEXTROSE 5%-WATER - 250 ML IVPB ONE (17:45)
[2024-09-07 17:47] LABS: BILIRUBIN,TOTAL 0.7 mg/dL (0.2-1); TOT PROT 5.4 g/dl (6.4-8.2)
[2024-09-07] MEDS ORDERED: INDOCYANINE GREEN 25 MG/10 ML VIAL IVPUSH ONE (18:19)
[2024-09-07] MEDS ORDERED: BUPIVACAINE HCL/PF 0.25% (2.5MG/ML) 10 ML VIAL ONE (18:19)
[2024-09-07] MEDS ORDERED: HEPARIN NA (PORCINE) 5,000 UNITS/ML 1ML VIAL ONE (18:20)
[2024-09-07] MEDS ORDERED: cefOXitin SODIUM 2 GM VIAL (RESTRICTED TO ID) IVPB ONE (18:20)
[2024-09-07] MEDS ORDERED: ROCURONIUM BROMIDE 50 MG/5 ML SYRINGE ONE (19:03)
[2024-09-07] MEDS ORDERED: ETOMIDATE 20 MG/10 ML VIAL IVPUSH ONE (19:05)
[2024-09-07] MEDS ORDERED: PROPOFOL 20 ML ONE (19:06)
[2024-09-07] MEDS ORDERED: KCL 20 MEQ PREMIX BAG 20 MEQ/100 ML INFUS.BAG IVPB ONE ×2 (19:11→20:09)
[2024-09-07] MEDS ORDERED: ALBUMIN HUMAN 5% 500 ML IV SOLUTION IV ONE (19:15)
[2024-09-07] MEDS ORDERED: MIDAZOLAM HCL 2 MG/2 ML SINGLE DOSE VIAL ONE (19:39)
[2024-09-07] MEDS ORDERED: ONDANSETRON 4 MG/2 ML VIAL IVPUSH PRN ×2 (20:12→22:15)
[2024-09-07] MEDS ORDERED: ACETAMINOPHEN 1000 MG/100 ML BAG IVPB PRN (20:17)
[2024-09-07] MEDS ORDERED: LACTATED RINGERS SOLUTION 1,000 ML/1,000 ML INFUS.BAG IV SCH (20:30)
[2024-09-07] MEDS ORDERED: MEROPENEM 1 GM in DEXTROSE 5%-WATER 100 ML IVPB SCH ×2 (20:30→21:00)
[2024-09-07 20:33] LABS: ARTERIAL BLD GAS O2 SATURATION 99.5 % (95-98); ARTERIAL BLOOD GAS BASE EXCESS -0.1 mmol/L (-2-2); ARTERIAL BLOOD GAS PO2 244.5 mmHg (80-100); ARTERIAL BLOOD GAS pH 7.383 (7.350-7.450)
[2024-09-07] MEDS ORDERED: TRANEXAMIC ACID 1000 MG/10 ML VIAL ONE (20:41)
[2024-09-07] MEDS ORDERED: PROPOFOL 1,000,000 MCG/100 ML VIAL ONE (20:50)
[2024-09-07] MEDS: ALBUMIN HUMAN 5% 500 ML IV SOLUTION IV ONE (20:56)
[2024-09-07] MEDS ORDERED: DEXMEDETOMIDINE PREMIX 400 MCG/100 ML BAG IVPB SCH (21:15)
[2024-09-07] MEDS ORDERED: PROPOFOL 1,000,000 MCG/100 ML VIAL IVPB SCH (21:15)
[2024-09-07] MEDS ORDERED: CHLORHEXIDINE GLUCONATE 4% CLEANSER FOR DECOLONIZATION TP SCH (22:00)
[2024-09-07] MEDS ORDERED: HEPARIN NA (PORCINE) 5,000 UNITS/ML 1ML VIAL SQ SCH (22:00)
[2024-09-07] MEDS ORDERED: MUPIROCIN 2% TOPICAL OINTMENT FOR DECOLONIZATION NS SCH (22:00)
[2024-09-07 22:28] LABS: ARTERIAL BLD GAS O2 SATURATION 97.1 % (95-98); ARTERIAL BLOOD GAS BASE EXCESS -5.8 mmol/L (-2-2); ARTERIAL BLOOD GAS PO2 95.5 mmHg (80-100); ARTERIAL BLOOD GAS pH 7.359 (7.350-7.450)
[2024-09-07 22:29] LABS: ALLENS TEST POSITIVE; VENT MODE A/C; VENT RATE 12
[2024-09-07] MEDS: PROPOFOL 1,000,000 MCG/100 ML VIAL IVPB SCH (22:35)
[2024-09-07 22:40] LABS: HEMATOCRIT 25.9 % (34.1-44.9); HEMOGLOBIN 7.9 g/dL (11.2-15.7); MCHC 30.5 g/dl (32.2-35.5); MEAN CELL VOLUME 89.9 fl (79.4-94.8); MEAN PLT VOLUME 10.3 fl (9.4-12.3); PLATELET COUNT 75 x10^3/uL (182-369); RDW 19.7 % (12.4-16.6)
[2024-09-07 22:46] LABS: CHLORIDE 109 mmol/L (98-107); SODIUM 143 mmol/L (136-145)
[2024-09-07 22:48] LABS: CALCIUM 9.2 mg/dL (8.5-10.1)
[2024-09-07 22:49] LABS: ALBUMIN 2.3 g/dl (3.4-5.0); ANION GAP 9 mmol/L (4-13); CO2 25 mmol/L (21-32); GLUCOSE,RANDOM 127 mg/dL (74-106); POTASSIUM 2.6 mmol/L (3.5-5.1)
[2024-09-07 22:52] LABS: CREATININE 1.1 mg/dL (0.55-1.3); SGOT/AST 11 U/L (15-37); SGPT/ALT < 6 U/L (13-61)
[2024-09-07 22:53] LABS: BILIRUBIN,TOTAL 0.8 mg/dL (0.2-1)
[2024-09-07 22:56] LABS: ALK PHOS 170 U/L (45-117)
[2024-09-07] MEDS ORDERED: ACETAMINOPHEN INJECTION 100 ML ONE (23:30)
[2024-09-07] MEDS: ACETAMINOPHEN 1000 MG/100 ML BAG IVPB SCH (23:30)
[2024-09-08] MEDS: LACTATED RINGERS SOLUTION 1,000 ML/1,000 ML INFUS.BAG IV SCH (00:19)
[2024-09-08] MEDS: ALBUMIN HUMAN 5% 500 ML IV SOLUTION IV ONE (00:36)
[2024-09-08] MEDS: NOREPINEPHRINE BITARTRATE 4,000 MCG in DEXTROSE 5%-WATER - 496 ML IV SCH (00:37)
[2024-09-08] MEDS ORDERED: MEROPENEM 1 GM in DEXTROSE 5%-WATER 100 ML IVPB SCH (02:00)
[2024-09-08] MEDS: NOREPINEPHRINE 0.9 % NACL 8 MG/250 ML BAG IVPB SCH (02:32)
[2024-09-08] MEDS: KCL 20 MEQ PREMIX BAG 20 MEQ/100 ML INFUS.BAG IVPB ONE ×2 (02:33→02:34)
[2024-09-08] MEDS: KCL 20 MEQ PREMIX BAG 20 MEQ/100 ML INFUS.BAG IVPB SCH ×2 (02:34→11:11)
[2024-09-08] MEDS: MEROPENEM 1 GM in DEXTROSE 5%-WATER 100 ML IVPB SCH ×2 (03:23→17:32)
[2024-09-08] MEDS: HEPARIN NA (PORCINE) 5,000 UNITS/ML 1ML VIAL SQ SCH (05:17)
[2024-09-08 06:14] LABS: INR 1.67 (0.83-1.09); PROTHROMBIN TIME (PATIENT) 18.2 SEC (9.7-13.0)
[2024-09-08 06:15] LABS: MEAN CELL VOLUME 88.1 fl (79.4-94.8)
[2024-09-08 06:17] LABS: ACTIVATED PTT 39.9 SECONDS (25.2-36.5); HEMATOCRIT 34.9 % (34.1-44.9); MCHC 31.5 g/dl (32.2-35.5); MEAN PLT VOLUME 11.1 fl (9.4-12.3); PLATELET COUNT 90 x10^3/uL (182-369)
[2024-09-08 06:28] LABS: POTASSIUM 3.7 mmol/L (3.5-5.1)
[2024-09-08 06:34] LABS: CALCIUM 9.1 mg/dL (8.5-10.1)
[2024-09-08 06:36] LABS: BLOOD UREA NITROGEN 35.6 mg/dL (7-18); MAGNESIUM 1.8 mg/dL (1.8-2.4)
[2024-09-08 06:38] LABS: CREATININE 1.2 mg/dL (0.55-1.3); PHOSPHOROUS 3.6 mg/dL (2.5-4.9)
[2024-09-08] MEDS: PANTOPRAZOLE SODIUM 40 MG VIAL IVPUSH SCH (09:15)
[2024-09-08] MEDS: MUPIROCIN 2% TOPICAL OINTMENT FOR DECOLONIZATION NS SCH (09:15)
[2024-09-08] MEDS ORDERED: MUPIROCIN 2% TOPICAL OINTMENT FOR DECOLONIZATION NS SCH (10:00)
[2024-09-08] MEDS ORDERED: PANTOPRAZOLE SODIUM 40 MG VIAL IVPUSH SCH (10:00)
[2024-09-08] MEDS: MAGNESIUM 1GM/D5W - 1 GM/100 ML IVPB IVPB ONE (10:48)
[2024-09-08] MEDS: DEXMEDETOMIDINE PREMIX 400 MCG/100 ML BAG IVPB SCH (11:02)
[2024-09-08] MEDS: MIDODRINE HCL 5 MG TABLET PO SCH (13:36)
[2024-09-08] MEDS: FLUCONAZOLE 200 MG/NS 100 ML IVPB SCH (14:14)
[2024-09-08] MEDS ORDERED: CHLORHEXIDINE GLUCONATE 4% CLEANSER FOR DECOLONIZATION TP SCH (22:00)
[2024-09-08] MEDS: CHLORHEXIDINE GLUCONATE 4% CLEANSER FOR DECOLONIZATION TP SCH (23:00)
[2024-09-09 06:45] LABS: ABSOLUTE IMMATURE GRANULOCYTES 0.06 x10^3/uL (0.0-0.031)
[2024-09-09 06:47] LABS: BASOPHILS # 0.03 x10^3/uL (0.01-0.08); EOSINOPHIL % 3.2 % (0.7-5.8); EOSINOPHILS # 0.35 x10^3/uL (0.04-0.36); HEMATOCRIT 35.7 % (34.1-44.9); HEMOGLOBIN 11.7 g/dL (11.2-15.7); MCHC 32.8 g/dl (32.2-35.5); MEAN CELL VOLUME 84.4 fl (79.4-94.8); MEAN PLT VOLUME 11.6 fl (9.4-12.3); MONOCYTE # 0.48 x10^3/uL (0.24-0.86); MONOCYTE % 4.3 % (4.7-12.5); PLATELET COUNT 68 x10^3/uL (182-369); RDW 19.7 % (12.4-16.6)
[2024-09-09 07:06] LABS: POTASSIUM 3.1 mmol/L (3.5-5.1)
[2024-09-09 07:09] LABS: BLOOD UREA NITROGEN 33.6 mg/dL (7-18); CALCIUM 8.4 mg/dL (8.5-10.1); MAGNESIUM 1.9 mg/dL (1.8-2.4)
[2024-09-09 07:12] LABS: BILIRUBIN,DIRECT 0.6 mg/dL (0.0-0.2)
[2024-09-09 07:13] LABS: CREATININE 1.2 mg/dL (0.55-1.3); PHOSPHOROUS 2.5 mg/dL (2.5-4.9)
[2024-09-09 07:14] LABS: BILIRUBIN,TOTAL 1.4 mg/dL (0.2-1); TOT PROT 4.7 g/dl (6.4-8.2)
[2024-09-09] MEDS: MAGNESIUM SULF 50% (8.12 MEQ/2 ML-1 GM VIAL) IVPB ONE (10:20)
[2024-09-09] MEDS: KCL 20 MEQ PREMIX BAG 20 MEQ/100 ML INFUS.BAG IVPB SCH (11:25)
[2024-09-09] MEDS: VANCOMYCIN HCL IN 5 % DEXTROSE 1,500 MG/300 ML BAG IVPB ONE (13:09)
[2024-09-09] MEDS ORDERED: HYDROmorphone HCl 2 MG/ML VIAL IVPUSH PRN (13:22)
[2024-09-09] MEDS ORDERED: HYDROmorphone *PCA* 10MG/50ML DISP.SYRIN IV PRN (13:25)
[2024-09-09] MEDS ORDERED: HYDROmorphone HCL CARPU-JECT 2 MG/1 ML DISP.SYRIN ONE (13:27)
[2024-09-09] MEDS: HYDROmorphone HCL CARPU-JECT 2 MG/1 ML DISP.SYRIN IVPUSH PRN ×2 (13:30→23:02)
[2024-09-09] MEDS ORDERED: ALBUMIN HUMAN 25% 12.5 GM/50 ML VIAL IV SCH (18:30)
[2024-09-09] MEDS: ALBUMIN HUMAN 25% 100 ML VIAL IV SCH ×2 (19:19→20:26)
[2024-09-09] MEDS ORDERED: ALBUMIN HUMAN 25% 100 ML VIAL IV SCH (20:30)
[2024-09-10] MEDS: LACTATED RINGERS SOLUTION 1,000 ML/1,000 ML INFUS.BAG IV STA (03:05)
[2024-09-10] MEDS: NOREPINEPHRINE 0.9 % NACL 8 MG/250 ML BAG IVPB SCH (03:15)
[2024-09-10] MEDS ORDERED: ALBUTEROL SO4 2.5/IPRATROPIUM 0.5 INH SOL 3 ML VIAL.NEB. NEB ONE (05:00)
[2024-09-10] MEDS: VASopressin 40 UNITS/100 ML BAG IV SCH (05:30)
[2024-09-10] MEDS: ALBUTEROL SO4 0.5 % INH SOLN 2.5 MG/0.5 ML VIAL.NEB. NEB PRN (05:50)
[2024-09-10 06:19] LABS: ARTERIAL BLD GAS O2 SATURATION 94.2 % (95-98); ARTERIAL BLOOD GAS BASE EXCESS -5.1 mmol/L (-2-2); ARTERIAL BLOOD GAS PO2 78.6 mmHg (80-100); ARTERIAL BLOOD GAS pH 7.285 (7.350-7.450)
[2024-09-10 06:22] LABS: ALLENS TEST POSITIVE
[2024-09-10 07:03] LABS: HEMATOCRIT 28.8 % (34.1-44.9); MCHC 31.3 g/dl (32.2-35.5); MEAN CELL VOLUME 87.8 fl (79.4-94.8); MEAN PLT VOLUME 11.9 fl (9.4-12.3); PLATELET COUNT 44 x10^3/uL (182-369); RDW 19.9 % (12.4-16.6)
[2024-09-10 07:12] LABS: INR 1.58 (0.83-1.09); PROTHROMBIN TIME (PATIENT) 17.2 SEC (9.7-13.0)
[2024-09-10 07:29] LABS: POTASSIUM 3.7 mmol/L (3.5-5.1)
[2024-09-10 07:33] LABS: BLOOD UREA NITROGEN 33.5 mg/dL (7-18); CALCIUM 8.4 mg/dL (8.5-10.1)
[2024-09-10 07:36] LABS: CREATININE 1.3 mg/dL (0.55-1.3)
[2024-09-10 07:37] LABS: PHOSPHOROUS 2.7 mg/dL (2.5-4.9)
[2024-09-10] MEDS: ALBUMIN HUMAN 25% 100 ML VIAL IV SCH (13:55)
[2024-09-10] MEDS ORDERED: VASopressin 20 UNITS/ML VIAL IV ONE (18:35)
[2024-09-10] MEDS: FUROSEMIDE 40 MG/4 ML INJECTABLE VIAL IVPUSH ONE (21:18)
[2024-09-11] MEDS: ALBUMIN HUMAN 25% 12.5 GM/50 ML VIAL IV SCH (00:59)
[2024-09-11 06:47] LABS: ABSOLUTE IMMATURE GRANULOCYTES 0.04 x10^3/uL (0.0-0.031); HEMOGLOBIN 8.5 g/dL (11.2-15.7)
[2024-09-11 06:49] LABS: BASOPHILS # 0.03 x10^3/uL (0.01-0.08); EOSINOPHIL % 5.6 % (0.7-5.8); EOSINOPHILS # 0.35 x10^3/uL (0.04-0.36); HEMATOCRIT 27.8 % (34.1-44.9); MCHC 30.6 g/dl (32.2-35.5); MEAN CELL VOLUME 90.6 fl (79.4-94.8); MEAN PLT VOLUME 10.9 fl (9.4-12.3); MONOCYTE # 0.44 x10^3/uL (0.24-0.86); MONOCYTE % 7.1 % (4.7-12.5); PLATELET COUNT 43 x10^3/uL (182-369); RDW 19.9 % (12.4-16.6)
[2024-09-11 08:37] LABS: POTASSIUM 3.3 mmol/L (3.5-5.1)
[2024-09-11 08:52] LABS: BLOOD UREA NITROGEN 29.4 mg/dL (7-18); CALCIUM 8.7 mg/dL (8.5-10.1); CREATININE 1.1 mg/dL (0.55-1.3)
[2024-09-11 08:53] LABS: BILIRUBIN,TOTAL 1.4 mg/dL (0.2-1)
[2024-09-11 08:54] LABS: TOT PROT 5.4 g/dl (6.4-8.2)
[2024-09-11 08:55] LABS: PHOSPHOROUS 3.2 mg/dL (2.5-4.9)
[2024-09-11 09:07] LABS: ALBUMIN 3.7 g/dl (3.4-5.0)
[2024-09-11] MEDS: KCL 10 MEQ IVPB 10 MEQ/100 ML INFUS.BAG IVPB SCH (10:21)
[2024-09-11] MEDS: VANCOMYCIN 1 GM PREMIX (F) 1 GM/200 ML BAG IVPB ONE (10:22)
[2024-09-11] MEDS ORDERED: VASopressin 20 UNITS/ML VIAL IV ONE (11:57)
[2024-09-12 07:06] LABS: HEMATOCRIT 26.5 % (34.1-44.9); HEMOGLOBIN 8.2 g/dL (11.2-15.7); MCHC 30.9 g/dl (32.2-35.5); MEAN CELL VOLUME 89.2 fl (79.4-94.8); MEAN PLT VOLUME 11.1 fl (9.4-12.3); PLATELET COUNT 45 x10^3/uL (182-369); RDW 19.2 % (12.4-16.6)
[2024-09-12 07:26] LABS: CHLORIDE 110 mmol/L (98-107); POTASSIUM 3.1 mmol/L (3.5-5.1); SODIUM 144 mmol/L (136-145)
[2024-09-12 07:29] LABS: ALBUMIN 3.2 g/dl (3.4-5.0); ANION GAP 6 mmol/L (4-13); BLOOD UREA NITROGEN 25.6 mg/dL (7-18); CO2 29 mmol/L (21-32); GLUCOSE,RANDOM 107 mg/dL (74-106)
[2024-09-12 07:30] LABS: CALCIUM 8.6 mg/dL (8.5-10.1)
[2024-09-12 07:32] LABS: CREATININE 1.1 mg/dL (0.55-1.3); SGOT/AST 11 U/L (15-37)
[2024-09-12 07:33] LABS: BILIRUBIN,TOTAL 1.3 mg/dL (0.2-1); SGPT/ALT < 6 U/L (13-61); TOT PROT 4.9 g/dl (6.4-8.2)
[2024-09-12 07:35] LABS: ALK PHOS 155 U/L (45-117)
[2024-09-12] MEDS ORDERED: KCL 10 MEQ IVPB 10 MEQ/100 ML INFUS.BAG IVPB SCH (08:45)
[2024-09-12] MEDS: KCL 20 MEQ PREMIX BAG 20 MEQ/100 ML INFUS.BAG IVPB SCH (09:18)
[2024-09-12 11:57] LABS: HEPATITIS B SURF AG NON-MATERN NON-REACTIVE (NONREACTIVE)
[2024-09-12 12:25] LABS: HCV DIAGNOSTIC IN-HOUSE W/RFLX NON-REACTIVE (NONREACTIVE)
[2024-09-12] MEDS: POLYETHYLENE GLYCOL (HEALTHYLAX) 3350 17 GM PACKET PO SCH (21:38)
[2024-09-13 06:54] LABS: HEMATOCRIT 26.7 % (34.1-44.9); HEMOGLOBIN 8.4 g/dL (11.2-15.7); MCHC 31.5 g/dl (32.2-35.5); MEAN CELL VOLUME 87.5 fl (79.4-94.8); MEAN PLT VOLUME 11.2 fl (9.4-12.3); PLATELET COUNT 45 x10^3/uL (182-369); RDW 18.8 % (12.4-16.6)
[2024-09-13 06:58] LABS: CHLORIDE 112 mmol/L (98-107); SODIUM 144 mmol/L (136-145)
[2024-09-13 07:00] LABS: INR 1.99 (0.83-1.09); PROTHROMBIN TIME (PATIENT) 21.9 SEC (9.7-13.0)
[2024-09-13 07:02] LABS: ALBUMIN 2.8 g/dl (3.4-5.0); ANION GAP 7 mmol/L (4-13); CALCIUM 8.5 mg/dL (8.5-10.1); CO2 26 mmol/L (21-32); GLUCOSE,RANDOM 89 mg/dL (74-106)
[2024-09-13 07:07] LABS: SGOT/AST 11 U/L (15-37)
[2024-09-13 07:08] LABS: ALK PHOS 167 U/L (45-117); TOT PROT 4.8 g/dl (6.4-8.2)
[2024-09-13 07:11] LABS: BILIRUBIN,TOTAL 1.5 mg/dL (0.2-1)
[2024-09-13 07:24] LABS: SGPT/ALT < 6 U/L (13-61)
[2024-09-13 08:20] LABS: MAGNESIUM 1.7 mg/dL (1.8-2.4)
[2024-09-13 08:29] LABS: PHOSPHOROUS 1.2 mg/dL (2.5-4.9)
[2024-09-13] MEDS: KCL 20 MEQ PREMIX BAG 20 MEQ/100 ML INFUS.BAG IVPB SCH (09:29)
[2024-09-13] MEDS: PHYTONADIONE 10 MG/1 ML AMP IVPB ONE (11:37)
[2024-09-13] MEDS: MAGNESIUM SULFATE IN WATER 2 GM/50 ML IVPB IVPB ONE (12:46)
[2024-09-13] MEDS ORDERED: DEXTROSE 50%-WATER 25 GM/50 ML DISP.SYRIN ONE (12:52)
[2024-09-13] MEDS: DEXTROSE 50%-WATER 25 GM/50 ML DISP.SYRIN IVPUSH ONE (12:54)
[2024-09-13] MEDS: NAPH,MB-DB/K PH,MBDB POWDER PACKET PO ONE (17:07)
[2024-09-13] MEDS: VANCOMYCIN/WATER FOR INJ (PEG) 1,000 MG/200 ML BAG IVPB ONE (18:26)
[2024-09-14 06:44] LABS: HEMATOCRIT 30.8 % (34.1-44.9); HEMOGLOBIN 9.8 g/dL (11.2-15.7); MCHC 31.8 g/dl (32.2-35.5); MEAN CELL VOLUME 87.3 fl (79.4-94.8); MEAN PLT VOLUME 11.4 fl (9.4-12.3); PLATELET COUNT 97 x10^3/uL (182-369); POTASSIUM 3.5 mmol/L (3.5-5.1); RDW 19.4 % (12.4-16.6)
[2024-09-14 06:47] LABS: CALCIUM 8.7 mg/dL (8.5-10.1)
[2024-09-14 06:48] LABS: ALBUMIN 2.7 g/dl (3.4-5.0); BLOOD UREA NITROGEN 22.2 mg/dL (7-18); INR 1.47 (0.83-1.09)
[2024-09-14 06:51] LABS: CREATININE 1.1 mg/dL (0.55-1.3)
[2024-09-14 06:59] LABS: BILIRUBIN,TOTAL 1.5 mg/dL (0.2-1)
[2024-09-14] MEDS ORDERED: NAPH,MB-DB/K PH,MBDB POWDER PACKET PO ONE (12:00)
[2024-09-14] MEDS: COLLAGENASE CLOSTRIDIUM HIST. 30 GRAMS TUBE TP SCH (17:58)
[2024-09-14] MEDS: HYDROmorphone HCL CARPU-JECT 2 MG/1 ML DISP.SYRIN IVPUSH PRN (22:22)
[2024-09-14] MEDS: MELATONIN 5 MG TABLETS PO PRN (22:22)
[2024-09-15 07:08] LABS: PLATELET COUNT 86 x10^3/uL (182-369)
[2024-09-15 07:09] LABS: HEMOGLOBIN 9.5 g/dL (11.2-15.7); MCHC 30.6 g/dl (32.2-35.5); MEAN CELL VOLUME 89.3 fl (79.4-94.8); MEAN PLT VOLUME 10.7 fl (9.4-12.3); RDW 19.8 % (12.4-16.6)
[2024-09-15 07:22] LABS: CHLORIDE 115 mmol/L (98-107); POTASSIUM 3.3 mmol/L (3.5-5.1); SODIUM 149 mmol/L (136-145)
[2024-09-15 07:27] LABS: ALBUMIN 2.3 g/dl (3.4-5.0); ANION GAP 8 mmol/L (4-13); BLOOD UREA NITROGEN 20.6 mg/dL (7-18); CALCIUM 8.5 mg/dL (8.5-10.1); CO2 26 mmol/L (21-32); GLUCOSE,RANDOM 101 mg/dL (74-106)
[2024-09-15 07:30] LABS: CREATININE 1.1 mg/dL (0.55-1.3); SGOT/AST 9 U/L (15-37); SGPT/ALT < 6 U/L (13-61)
[2024-09-15 07:32] LABS: BILIRUBIN,TOTAL 1.2 mg/dL (0.2-1); TOT PROT 4.6 g/dl (6.4-8.2)
[2024-09-15 07:33] LABS: ALK PHOS 186 U/L (45-117)
[2024-09-15] MEDS: KCL 10 MEQ IVPB 10 MEQ/100 ML INFUS.BAG IVPB SCH (09:42)
[2024-09-16 10:19] LABS: ABSOLUTE IMMATURE GRANULOCYTES 0.04 x10^3/uL (0.0-0.031); BASOPHILS # 0.12 x10^3/uL (0.01-0.08); EOSINOPHIL % 2.3 % (0.7-5.8); EOSINOPHILS # 0.23 x10^3/uL (0.04-0.36); HEMATOCRIT 34.1 % (34.1-44.9); HEMOGLOBIN 10.5 g/dL (11.2-15.7); MCHC 30.8 g/dl (32.2-35.5); MEAN CELL VOLUME 89.3 fl (79.4-94.8); MONOCYTE # 0.66 x10^3/uL (0.24-0.86); MONOCYTE % 6.6 % (4.7-12.5); PLATELET COUNT 110 x10^3/uL (182-369); RDW 19.5 % (12.4-16.6)
[2024-09-16 10:41] LABS: CHLORIDE 109 mmol/L (98-107); POTASSIUM 3.5 mmol/L (3.5-5.1); SODIUM 141 mmol/L (136-145)
[2024-09-16 10:46] LABS: ALBUMIN 2.5 g/dl (3.4-5.0); ANION GAP 10 mmol/L (4-13); CALCIUM 8.5 mg/dL (8.5-10.1); CO2 22 mmol/L (21-32)
[2024-09-16 10:47] LABS: BLOOD UREA NITROGEN 19.7 mg/dL (7-18); GLUCOSE,RANDOM 141 mg/dL (74-106); MAGNESIUM 1.8 mg/dL (1.8-2.4)
[2024-09-16 10:49] LABS: SGOT/AST 11 U/L (15-37)
[2024-09-16 10:50] LABS: CREATININE 1.2 mg/dL (0.55-1.3); PHOSPHOROUS 1.7 mg/dL (2.5-4.9)
[2024-09-16 10:51] LABS: BILIRUBIN,TOTAL 1.8 mg/dL (0.2-1); SGPT/ALT < 6 U/L (13-61); TOT PROT 5.3 g/dl (6.4-8.2)
[2024-09-16 10:58] LABS: ALK PHOS 246 U/L (45-117)
[2024-09-16] MEDS: MAGNESIUM SULFATE IN WATER 2 GM/50 ML IVPB IVPB ONE (12:48)
[2024-09-16] MEDS: POTASSIUM PHOSPHATE 30 MM in DEXTROSE 5%-WATER - 250 ML IVPB ONE (13:33)
[2024-09-16] MEDS: MIDODRINE HCL 5 MG TABLET PO SCH (13:33)
[2024-09-16] MEDS: NOREPINEPHRINE BITARTRATE/D5W 8 MG/250 ML BAG IVPB SCH (18:34)
[2024-09-17] MEDS: FUROSEMIDE 40 MG/4 ML INJECTABLE VIAL IVPUSH ONE (06:50)
[2024-09-17 06:51] LABS: MCHC 32.3 g/dl (32.2-35.5); RDW 19.2 % (12.4-16.6)
[2024-09-17 06:52] LABS: HEMOGLOBIN 9.7 g/dL (11.2-15.7); MEAN CELL VOLUME 86.5 fl (79.4-94.8); MEAN PLT VOLUME 11.8 fl (9.4-12.3); PLATELET COUNT 128 x10^3/uL (182-369)
[2024-09-17 07:02] LABS: CHLORIDE 107 mmol/L (98-107); POTASSIUM 3.4 mmol/L (3.5-5.1); SODIUM 139 mmol/L (136-145)
[2024-09-17 07:14] LABS: ALBUMIN 2.2 g/dl (3.4-5.0); ANION GAP 8 mmol/L (4-13); BLOOD UREA NITROGEN 19.9 mg/dL (7-18); CALCIUM 8.4 mg/dL (8.5-10.1); CO2 24 mmol/L (21-32); GLUCOSE,RANDOM 137 mg/dL (74-106)
[2024-09-17 07:17] LABS: CREATININE 1.1 mg/dL (0.55-1.3); SGOT/AST 7 U/L (15-37)
[2024-09-17 07:18] LABS: PHOSPHOROUS 2.6 mg/dL (2.5-4.9)
[2024-09-17 07:19] LABS: BILIRUBIN,TOTAL 1.4 mg/dL (0.2-1); TOT PROT 4.8 g/dl (6.4-8.2)
[2024-09-17 07:20] LABS: ALK PHOS 237 U/L (45-117)
[2024-09-17 07:26] LABS: SGPT/ALT < 6 U/L (13-61)
[2024-09-17] MEDS: ACETAMINOPHEN 1000 MG/100 ML BAG IVPB PRN (09:50)
[2024-09-17] MEDS: ALBUTEROL SO4 2.5/IPRATROPIUM 0.5 INH SOL 3 ML VIAL.NEB. NEB ONE (10:27)
[2024-09-17] MEDS: KCL 20 MEQ PREMIX BAG 20 MEQ/100 ML INFUS.BAG IVPB ONE (12:43)
[2024-09-17] MEDS: ALBUTEROL SO4 2.5/IPRATROPIUM 0.5 INH SOL 3 ML VIAL.NEB. NEB PRN (16:00)
[2024-09-17] MEDS: AMINO ACIDS/PROTEIN HYDROLYS 30 ML LIQUID.PKT PO SCH (17:28)
[2024-09-17] MEDS: predniSONE 20 MG TABLET (UD) PO SCH (17:28)
[2024-09-17] MEDS: VANCOMYCIN/WATER FOR INJ (PEG) 1,000 MG/200 ML BAG IVPB ONE (17:29)
[2024-09-17] MEDS: POLYMYXIN B SULFATE/TMP 10 ML OPHTHALMIC SOLUTION OD SCH (18:39)
[2024-09-18] MEDS: HYDROmorphone HCL CARPU-JECT 2 MG/1 ML DISP.SYRIN IVPUSH PRN (06:10)
[2024-09-18 07:00] LABS: HEMATOCRIT 30.6 % (34.1-44.9); HEMOGLOBIN 9.7 g/dL (11.2-15.7); MCHC 31.7 g/dl (32.2-35.5); MEAN CELL VOLUME 86.7 fl (79.4-94.8); MEAN PLT VOLUME 10.8 fl (9.4-12.3); PLATELET COUNT 189 x10^3/uL (182-369); RDW 19.5 % (12.4-16.6)
[2024-09-18 07:21] LABS: CHLORIDE 107 mmol/L (98-107); POTASSIUM 3.5 mmol/L (3.5-5.1); SODIUM 138 mmol/L (136-145)
[2024-09-18 07:26] LABS: ALBUMIN 2.2 g/dl (3.4-5.0); ANION GAP 9 mmol/L (4-13); BLOOD UREA NITROGEN 23.1 mg/dL (7-18); CALCIUM 8.1 mg/dL (8.5-10.1); CO2 22 mmol/L (21-32); GLUCOSE,RANDOM 194 mg/dL (74-106); MAGNESIUM 1.8 mg/dL (1.8-2.4)
[2024-09-18 07:28] LABS: CREATININE 1.4 mg/dL (0.55-1.3); PHOSPHOROUS 3.2 mg/dL (2.5-4.9); SGPT/ALT < 6 U/L (13-61)
[2024-09-18 07:30] LABS: BILIRUBIN,TOTAL 1.1 mg/dL (0.2-1); SGOT/AST 8 U/L (15-37)
[2024-09-18 07:32] LABS: ALK PHOS 245 U/L (45-117)
[2024-09-18] MEDS: ASCORBIC ACID 500 MG TABLET (FP) PO SCH (09:03)
[2024-09-18] MEDS: FUROSEMIDE 40 MG/4 ML INJECTABLE VIAL IVPUSH ONE (20:20)
[2024-09-19 07:07] LABS: HEMATOCRIT 29.2 % (34.1-44.9); HEMOGLOBIN 9.4 g/dL (11.2-15.7); MCHC 32.2 g/dl (32.2-35.5); MEAN CELL VOLUME 87.4 fl (79.4-94.8); MEAN PLT VOLUME 11.3 fl (9.4-12.3); PLATELET COUNT 211 x10^3/uL (182-369); RDW 19.6 % (12.4-16.6)
[2024-09-19 07:26] LABS: POTASSIUM 3.6 mmol/L (3.5-5.1)
[2024-09-19 07:32] LABS: ALBUMIN 2.2 g/dl (3.4-5.0); BLOOD UREA NITROGEN 24.7 mg/dL (7-18); CALCIUM 8.4 mg/dL (8.5-10.1)
[2024-09-19 07:36] LABS: CREATININE 1.5 mg/dL (0.55-1.3)
[2024-09-19 07:38] LABS: BILIRUBIN,TOTAL 0.8 mg/dL (0.2-1); TOT PROT 4.8 g/dl (6.4-8.2)
[2024-09-19] MEDS: ALBUMIN HUMAN 25% 100 ML VIAL IV SCH (11:36)
[2024-09-19] MEDS: NOREPINEPHRINE BITARTRATE/D5W 8 MG/250 ML BAG IVPB SCH (12:00)
[2024-09-19] MEDS: FUROSEMIDE 40 MG/4 ML INJECTABLE VIAL IVPUSH SCH ×2 (12:15→12:46)
[2024-09-19 13:27] VITALS: BMI 38.4
[2024-09-19] MEDS: ALBUTEROL SO4 2.5/IPRATROPIUM 0.5 INH SOL 3 ML VIAL.NEB. NEB SCH (16:05)
[2024-09-20 07:40] LABS: HEMATOCRIT 25.5 % (34.1-44.9); HEMOGLOBIN 7.9 g/dL (11.2-15.7); MEAN CELL VOLUME 89.5 fl (79.4-94.8); PLATELET COUNT 165 x10^3/uL (182-369)
[2024-09-20 08:01] LABS: CHLORIDE 107 mmol/L (98-107); SODIUM 140 mmol/L (136-145)
[2024-09-20 08:09] LABS: CALCIUM 8.3 mg/dL (8.5-10.1)
[2024-09-20 08:10] LABS: ALBUMIN 2.9 g/dl (3.4-5.0); ANION GAP 9 mmol/L (4-13); BLOOD UREA NITROGEN 28.4 mg/dL (7-18); CO2 24 mmol/L (21-32); GLUCOSE,RANDOM 144 mg/dL (74-106)
[2024-09-20 08:13] LABS: CREATININE 1.6 mg/dL (0.55-1.3); SGOT/AST 7 U/L (15-37); SGPT/ALT < 6 U/L (13-61)
[2024-09-20 08:16] LABS: ALK PHOS 189 U/L (45-117)
[2024-09-20] MEDS: POTASSIUM CHLORIDE ORAL LIQUID 20 MEQ/15 ML PO SCH (09:02)
[2024-09-20] MEDS: POTASSIUM CHLORIDE TABS 20 MEQ TABLET.ER (FP) PO ONE ×2 (12:20→14:32)
[2024-09-20] MEDS: HEPARIN NA (PORCINE) 5,000 UNITS/ML 1ML VIAL SQ SCH (14:32)
[2024-09-20 20:56] LABS: POTASSIUM 3.4 mmol/L (3.5-5.1)
[2024-09-20 20:57] LABS: CALCIUM 7.9 mg/dL (8.5-10.1)
[2024-09-20 21:01] LABS: CREATININE 1.8 mg/dL (0.55-1.3)
[2024-09-20] MEDS: FLUDROCORTISONE ACETATE 0.1 MG TABLET (FP) PO SCH (21:47)
[2024-09-20] MEDS: MAGNESIUM 1GM/D5W - 1 GM/100 ML IVPB IVPB ONE (23:05)
[2024-09-21] MEDS: KCL 10 MEQ IVPB 10 MEQ/100 ML INFUS.BAG IVPB SCH (00:30)
[2024-09-21 05:43] LABS: HEMOGLOBIN 7.7 g/dL (11.2-15.7)
[2024-09-21 05:45] LABS: HEMATOCRIT 24.3 % (34.1-44.9); MCHC 31.7 g/dl (32.2-35.5); MEAN CELL VOLUME 90.3 fl (79.4-94.8); MEAN PLT VOLUME 10.7 fl (9.4-12.3); PLATELET COUNT 136 x10^3/uL (182-369); RDW 20.3 % (12.4-16.6)
[2024-09-21 06:12] LABS: CHLORIDE 107 mmol/L (98-107); POTASSIUM 3.3 mmol/L (3.5-5.1); SODIUM 140 mmol/L (136-145)
[2024-09-21 06:15] LABS: ALBUMIN 3.2 g/dl (3.4-5.0); ANION GAP 8 mmol/L (4-13); BLOOD UREA NITROGEN 26.4 mg/dL (7-18); CALCIUM 7.9 mg/dL (8.5-10.1); CO2 25 mmol/L (21-32); GLUCOSE,RANDOM 106 mg/dL (74-106); MAGNESIUM 1.9 mg/dL (1.8-2.4)
[2024-09-21 06:18] LABS: CREATININE 1.6 mg/dL (0.55-1.3); PHOSPHOROUS 3.3 mg/dL (2.5-4.9); SGOT/AST 8 U/L (15-37)
[2024-09-21 06:20] LABS: BILIRUBIN,TOTAL 0.9 mg/dL (0.2-1)
[2024-09-21 06:21] LABS: ALK PHOS 176 U/L (45-117)
[2024-09-21 07:50] LABS: SGPT/ALT < 6 U/L (13-61)
[2024-09-21] MEDS: POTASSIUM CHLORIDE TABS 20 MEQ TABLET.ER (FP) PO ONE (11:33)
[2024-09-21] MEDS: ALBUMIN HUMAN 25% 100 ML VIAL IV SCH (12:35)
[2024-09-22 06:51] LABS: CHLORIDE 106 mmol/L (98-107); SODIUM 140 mmol/L (136-145)
[2024-09-22 06:57] LABS: ALBUMIN 3.6 g/dl (3.4-5.0); BLOOD UREA NITROGEN 26.5 mg/dL (7-18); CALCIUM 8.3 mg/dL (8.5-10.1); CO2 27 mmol/L (21-32)
[2024-09-22 06:58] LABS: GLUCOSE,RANDOM 155 mg/dL (74-106)
[2024-09-22 07:00] LABS: SGOT/AST 7 U/L (15-37)
[2024-09-22 07:01] LABS: CREATININE 1.4 mg/dL (0.55-1.3)
[2024-09-22 07:02] LABS: BILIRUBIN,TOTAL 1.4 mg/dL (0.2-1); TOT PROT 5.2 g/dl (6.4-8.2)
[2024-09-22 07:03] LABS: ALK PHOS 176 U/L (45-117); HEMATOCRIT 26.4 % (34.1-44.9); HEMOGLOBIN 8.3 g/dL (11.2-15.7); MCHC 31.4 g/dl (32.2-35.5); MEAN CELL VOLUME 90.1 fl (79.4-94.8); MEAN PLT VOLUME 10.9 fl (9.4-12.3); PLATELET COUNT 132 x10^3/uL (182-369); RDW 20.8 % (12.4-16.6)
[2024-09-22 07:16] LABS: ANION GAP 8 mmol/L (4-13); POTASSIUM 2.7 mmol/L (3.5-5.1); SGPT/ALT < 6 U/L (13-61)
[2024-09-22] MEDS ORDERED: MAGNESIUM SULF 50% (8.12 MEQ/2 ML-1 GM VIAL) ONE (12:17)
[2024-09-22] MEDS: KCL 20 MEQ PREMIX BAG 20 MEQ/100 ML INFUS.BAG IVPB SCH (12:28)
[2024-09-22] MEDS: MAGNESIUM 1GM/D5W - 1 GM/100 ML IVPB IVPB ONE (12:28)
[2024-09-22] MEDS: POTASSIUM CHLORIDE ORAL LIQUID 20 MEQ/15 ML PO ONE (12:30)
[2024-09-23 06:54] LABS: CHLORIDE 107 mmol/L (98-107); POTASSIUM 3.2 mmol/L (3.5-5.1); SODIUM 143 mmol/L (136-145)
[2024-09-23 07:02] LABS: ABSOLUTE IMMATURE GRANULOCYTES 0.05 x10^3/uL (0.0-0.031); BASOPHILS # 0.06 x10^3/uL (0.01-0.08); CALCIUM 8.5 mg/dL (8.5-10.1); EOSINOPHIL % 10.4 % (0.7-5.8); EOSINOPHILS # 0.71 x10^3/uL (0.04-0.36); HEMATOCRIT 27.3 % (34.1-44.9); HEMOGLOBIN 8.9 g/dL (11.2-15.7); MCHC 32.6 g/dl (32.2-35.5); MEAN CELL VOLUME 88.6 fl (79.4-94.8); MEAN PLT VOLUME 11.1 fl (9.4-12.3); MONOCYTE # 0.63 x10^3/uL (0.24-0.86); MONOCYTE % 9.2 % (4.7-12.5); PLATELET COUNT 146 x10^3/uL (182-369); RDW 21.4 % (12.4-16.6)
[2024-09-23 07:03] LABS: ALBUMIN 3.1 g/dl (3.4-5.0); ANION GAP 12 mmol/L (4-13); BLOOD UREA NITROGEN 22.9 mg/dL (7-18); CO2 24 mmol/L (21-32); GLUCOSE,RANDOM 170 mg/dL (74-106); MAGNESIUM 1.7 mg/dL (1.8-2.4)
[2024-09-23 07:04] LABS: SGPT/ALT < 6 U/L (13-61)
[2024-09-23 07:06] LABS: BILIRUBIN,TOTAL 1.3 mg/dL (0.2-1); CREATININE 1.3 mg/dL (0.55-1.3); PHOSPHOROUS 2.6 mg/dL (2.5-4.9); SGOT/AST 8 U/L (15-37); TOT PROT 4.7 g/dl (6.4-8.2)
[2024-09-23 07:07] LABS: ALK PHOS 178 U/L (45-117)
[2024-09-23] MEDS: MAGNESIUM SULFATE IN WATER 2 GM/50 ML IVPB IVPB ONE (08:08)
[2024-09-23] MEDS: KCL 20 MEQ PREMIX BAG 20 MEQ/100 ML INFUS.BAG IVPB SCH (10:36)
[2024-09-23] MEDS: ZINC SULFATE 220 MG CAPSULE (FP) PO SCH (10:57)
[2024-09-23] MEDS: MULTIVITAMINS (DAILY MVI) TABLET (FP) PO SCH (10:57)
[2024-09-23] MEDS: HYDROmorphone HCL CARPU-JECT 2 MG/1 ML DISP.SYRIN IVPUSH ONE (17:24)
[2024-09-24 07:14] LABS: ABSOLUTE IMMATURE GRANULOCYTES 0.03 x10^3/uL (0.0-0.031); BASOPHILS # 0.09 x10^3/uL (0.01-0.08); CHLORIDE 107 mmol/L (98-107); EOSINOPHIL % 11.3 % (0.7-5.8); HEMATOCRIT 28.3 % (34.1-44.9); MCHC 31.8 g/dl (32.2-35.5); MEAN CELL VOLUME 89.8 fl (79.4-94.8); MEAN PLT VOLUME 12.1 fl (9.4-12.3); MONOCYTE # 0.89 x10^3/uL (0.24-0.86); MONOCYTE % 11.2 % (4.7-12.5); PLATELET COUNT 169 x10^3/uL (182-369); POTASSIUM 3.6 mmol/L (3.5-5.1); RDW 22.5 % (12.4-16.6); SODIUM 139 mmol/L (136-145)
[2024-09-24 07:22] LABS: ALBUMIN 2.8 g/dl (3.4-5.0)
[2024-09-24 07:23] LABS: BILIRUBIN,TOTAL 1.1 mg/dL (0.2-1); BLOOD UREA NITROGEN 21.4 mg/dL (7-18)
[2024-09-24 07:24] LABS: GLUCOSE,RANDOM 163 mg/dL (74-106); SGOT/AST 12 U/L (15-37); SGPT/ALT < 6 U/L (13-61); TOT PROT 4.7 g/dl (6.4-8.2)
[2024-09-24 07:25] LABS: ALK PHOS 188 U/L (45-117)
[2024-09-24 07:26] LABS: ANION GAP 9 mmol/L (4-13); CALCIUM 8.5 mg/dL (8.5-10.1); CO2 23 mmol/L (21-32); CREATININE 1.1 mg/dL (0.55-1.3); MAGNESIUM 2.2 mg/dL (1.8-2.4); PHOSPHOROUS 2.4 mg/dL (2.5-4.9)
[2024-09-24] MEDS ORDERED: HYDROmorphone HCL CARPU-JECT 2 MG/1 ML DISP.SYRIN IVPUSH PRN (19:45)
[2024-09-25] MEDS: HYDROmorphone HCL CARPU-JECT 2 MG/1 ML DISP.SYRIN IVPUSH PRN
[2024-09-25 06:50] LABS: CHLORIDE 108 mmol/L (98-107); POTASSIUM 3.1 mmol/L (3.5-5.1); SODIUM 139 mmol/L (136-145)
[2024-09-25 06:58] LABS: ABSOLUTE IMMATURE GRANULOCYTES 0.02 x10^3/uL (0.0-0.031); BASOPHILS # 0.06 x10^3/uL (0.01-0.08); EOSINOPHIL % 8.2 % (0.7-5.8); EOSINOPHILS # 0.45 x10^3/uL (0.04-0.36); HEMATOCRIT 26.6 % (34.1-44.9); HEMOGLOBIN 8.3 g/dL (11.2-15.7); MCHC 31.2 g/dl (32.2-35.5); MEAN CELL VOLUME 90.8 fl (79.4-94.8); MEAN PLT VOLUME 11.4 fl (9.4-12.3); MONOCYTE # 0.61 x10^3/uL (0.24-0.86); MONOCYTE % 11.2 % (4.7-12.5); PLATELET COUNT 159 x10^3/uL (182-369); RDW 22.5 % (12.4-16.6)
[2024-09-25 07:01] LABS: BLOOD UREA NITROGEN 20.8 mg/dL (7-18); CALCIUM 8.2 mg/dL (8.5-10.1); GLUCOSE,RANDOM 127 mg/dL (74-106)
[2024-09-25 07:02] LABS: ALBUMIN 2.4 g/dl (3.4-5.0); ANION GAP 8 mmol/L (4-13); CO2 23 mmol/L (21-32)
[2024-09-25 07:04] LABS: SGOT/AST 10 U/L (15-37)
[2024-09-25 07:05] LABS: PHOSPHOROUS 2.5 mg/dL (2.5-4.9)
[2024-09-25 07:06] LABS: BILIRUBIN,TOTAL 1.2 mg/dL (0.2-1); TOT PROT 4.4 g/dl (6.4-8.2)
[2024-09-25 07:07] LABS: ALK PHOS 173 U/L (45-117)
[2024-09-25 07:48] LABS: SGPT/ALT < 6 U/L (13-61)
[2024-09-25] MEDS: POTASSIUM CHLORIDE TABS 20 MEQ TABLET.ER (FP) PO ONE (09:10)
[2024-09-25] MEDS: KCL 20 MEQ PREMIX BAG 20 MEQ/100 ML INFUS.BAG IVPB SCH (10:01)
[2024-09-26 06:29] LABS: POTASSIUM 3.2 mmol/L (3.5-5.1)
[2024-09-26 06:31] LABS: ALBUMIN 2.3 g/dl (3.4-5.0); CALCIUM 8.4 mg/dL (8.5-10.1)
[2024-09-26 06:32] LABS: BLOOD UREA NITROGEN 19.6 mg/dL (7-18); MAGNESIUM 2.1 mg/dL (1.8-2.4)
[2024-09-26 06:36] LABS: BILIRUBIN,TOTAL 0.8 mg/dL (0.2-1); HEMOGLOBIN 8.2 g/dL (11.2-15.7); MCHC 31.5 g/dl (32.2-35.5); MEAN CELL VOLUME 92.9 fl (79.4-94.8); MEAN PLT VOLUME 11.8 fl (9.4-12.3); PLATELET COUNT 180 x10^3/uL (182-369); RDW 23.2 % (12.4-16.6); TOT PROT 4.4 g/dl (6.4-8.2)
[2024-09-26] MEDS: POTASSIUM CHLORIDE ORAL LIQUID 20 MEQ/15 ML PO ONE (08:19)
[2024-09-26] MEDS: POTASSIUM CHLORIDE TABS 20 MEQ TABLET.ER (FP) PO ONE (09:19)
[2024-09-26] MEDS: ACETAMINOPHEN 1000 MG/100 ML BAG IVPB SCH (10:26)
[2024-09-26] MEDS ORDERED: NOREPINEPHRINE BITARTRATE/D5W 8 MG/250 ML BAG IVPB SCH (11:35)
[2024-09-26 11:53] LABS: Reticulocyte % 4.34 % (0.5-1.7)
[2024-09-26] MEDS ORDERED: VASopressin 40 UNITS/100 ML BAG IV SCH (12:10)
[2024-09-26] MEDS: VASopressin 40 UNITS/100 ML BAG IV SCH (12:39)
[2024-09-26] MEDS ORDERED: DOPAMINE 400 MG/D5W - 400,000 MCG/250 ML INFUS.BAG IVPB ONE (14:43)
[2024-09-26] MEDS ORDERED: DOPAMINE 400 MG/D5W - 400,000 MCG/250 ML INFUS.BAG IVPB SCH ×2 (14:45)
[2024-09-26] MEDS: ALBUMIN HUMAN 25% 100 ML VIAL IV ONE (17:14)
[2024-09-26] MEDS: HEPARIN NA (PORCINE) 5,000 UNITS/ML 1ML VIAL SQ SCH (21:23)
[2024-09-27 06:37] LABS: HEMATOCRIT 23.7 % (34.1-44.9); HEMOGLOBIN 7.4 g/dL (11.2-15.7); MCHC 31.2 g/dl (32.2-35.5); MEAN PLT VOLUME 11.5 fl (9.4-12.3); PLATELET COUNT 143 x10^3/uL (182-369); RDW 23.6 % (12.4-16.6)
[2024-09-27 06:44] LABS: POTASSIUM 3.1 mmol/L (3.5-5.1)
[2024-09-27 06:51] LABS: ALBUMIN 2.2 g/dl (3.4-5.0); BLOOD UREA NITROGEN 20.7 mg/dL (7-18); CALCIUM 8.1 mg/dL (8.5-10.1)
[2024-09-27 06:55] LABS: CREATININE 1.1 mg/dL (0.55-1.3)
[2024-09-27 06:56] LABS: BILIRUBIN,TOTAL 0.6 mg/dL (0.2-1); TOT PROT 4.2 g/dl (6.4-8.2)
[2024-09-27] MEDS ORDERED: POTASSIUM CHLORIDE TABS 10 MEQ TABLET.ER (FP) PO ONE (08:15)
[2024-09-27] MEDS: POTASSIUM CHLORIDE ORAL LIQUID 20 MEQ/15 ML PO ONE (12:37)
[2024-09-27] MEDS: COSYNTROPIN 0.25 MG VIAL IVPUSH ONE (22:48)
[2024-09-28 07:05] LABS: CALCIUM 8.1 mg/dL (8.5-10.1)
[2024-09-28 07:06] LABS: ALBUMIN 2.2 g/dl (3.4-5.0); BLOOD UREA NITROGEN 19.4 mg/dL (7-18); MAGNESIUM 2.1 mg/dL (1.8-2.4)
[2024-09-28 07:09] LABS: CREATININE 1.1 mg/dL (0.55-1.3); PHOSPHOROUS 3.2 mg/dL (2.5-4.9)
[2024-09-28 07:11] LABS: BILIRUBIN,TOTAL 0.6 mg/dL (0.2-1); TOT PROT 4.3 g/dl (6.4-8.2)
[2024-09-28 07:13] LABS: HEMATOCRIT 22.5 % (34.1-44.9); HEMOGLOBIN 6.9 g/dL (11.2-15.7); MCHC 30.7 g/dl (32.2-35.5); MEAN CELL VOLUME 95.3 fl (79.4-94.8); MEAN PLT VOLUME 11.4 fl (9.4-12.3); PLATELET COUNT 159 x10^3/uL (182-369)
[2024-09-28 08:18] LABS: INR 1.06 (0.83-1.09); PROTHROMBIN TIME (PATIENT) 11.7 SEC (9.7-13.0)
[2024-09-28 08:21] LABS: ACTIVATED PTT 29.8 SECONDS (25.2-36.5)
[2024-09-28] MEDS: POTASSIUM CHLORIDE TABS 20 MEQ TABLET.ER (FP) PO ONE (09:21)
[2024-09-28 15:44] LABS: HEMATOCRIT 30.7 % (34.1-44.9); HEMOGLOBIN 9.6 g/dL (11.2-15.7); MCHC 31.3 g/dl (32.2-35.5); MEAN CELL VOLUME 96.2 fl (79.4-94.8); MEAN PLT VOLUME 11.4 fl (9.4-12.3); PLATELET COUNT 207 x10^3/uL (182-369); RDW 22.8 % (12.4-16.6)
[2024-09-29 07:19] LABS: HEMATOCRIT 25.3 % (34.1-44.9); HEMOGLOBIN 8.2 g/dL (11.2-15.7); MCHC 32.4 g/dl (32.2-35.5); MEAN CELL VOLUME 94.1 fl (79.4-94.8); MEAN PLT VOLUME 11.1 fl (9.4-12.3); PLATELET COUNT 167 x10^3/uL (182-369)
[2024-09-29 07:31] LABS: POTASSIUM 3.2 mmol/L (3.5-5.1)
[2024-09-29 07:44] LABS: ALBUMIN 2.2 g/dl (3.4-5.0); CALCIUM 8.2 mg/dL (8.5-10.1)
[2024-09-29 07:48] LABS: CREATININE 1.1 mg/dL (0.55-1.3)
[2024-09-29 07:50] LABS: BILIRUBIN,TOTAL 0.8 mg/dL (0.2-1); TOT PROT 4.6 g/dl (6.4-8.2)
[2024-09-29] MEDS ORDERED: KCL 20 MEQ PREMIX BAG 20 MEQ/100 ML INFUS.BAG IVPB SCH (09:00)
[2024-09-29] MEDS: FLUDROCORTISONE ACETATE 0.1 MG TABLET (FP) PO SCH (10:06)
[2024-09-29] MEDS: PANTOPRAZOLE 40 MG TABLET PO SCH (10:07)
[2024-09-29] MEDS: POTASSIUM CHLORIDE TABS 20 MEQ TABLET.ER (FP) PO ONE (10:07)
[2024-09-30] MEDS: HYDROmorphone HCL CARPU-JECT 2 MG/1 ML DISP.SYRIN IVPUSH PRN (00:39)
[2024-09-30 06:54] LABS: ABSOLUTE IMMATURE GRANULOCYTES 0.03 x10^3/uL (0.0-0.031); BASOPHILS # 0.08 x10^3/uL (0.01-0.08); EOSINOPHIL % 6.8 % (0.7-5.8); EOSINOPHILS # 0.36 x10^3/uL (0.04-0.36); HEMATOCRIT 27.1 % (34.1-44.9); HEMOGLOBIN 8.4 g/dL (11.2-15.7); MEAN CELL VOLUME 95.8 fl (79.4-94.8); MEAN PLT VOLUME 10.9 fl (9.4-12.3); MONOCYTE # 0.66 x10^3/uL (0.24-0.86); MONOCYTE % 12.4 % (4.7-12.5); PLATELET COUNT 173 x10^3/uL (182-369); RDW 23.3 % (12.4-16.6)
[2024-09-30 07:11] LABS: POTASSIUM 3.1 mmol/L (3.5-5.1)
[2024-09-30 07:19] LABS: ALBUMIN 2.1 g/dl (3.4-5.0); BLOOD UREA NITROGEN 18.8 mg/dL (7-18); CALCIUM 8.3 mg/dL (8.5-10.1)
[2024-09-30 07:22] LABS: PHOSPHOROUS 2.9 mg/dL (2.5-4.9)
[2024-09-30 07:24] LABS: BILIRUBIN,TOTAL 0.5 mg/dL (0.2-1); TOT PROT 4.5 g/dl (6.4-8.2)
[2024-09-30] MEDS: POTASSIUM CHLORIDE TABS 20 MEQ TABLET.ER (FP) PO ONE (10:31)
[2024-09-30] MEDS: KCL 20 MEQ PREMIX BAG 20 MEQ/100 ML INFUS.BAG IVPB ONE (11:31)
[2024-09-30] MEDS: KCL 10 MEQ IVPB 10 MEQ/100 ML INFUS.BAG IVPB SCH (13:00)
[2024-09-30] MEDS: FLUDROCORTISONE ACETATE 0.1 MG TABLET (FP) PO ONE (14:00)
[2024-09-30] MEDS: HYDROmorphone HCL CARPU-JECT 2 MG/1 ML DISP.SYRIN IVPUSH ONE (22:16)
[2024-10-01 07:09] LABS: ABSOLUTE IMMATURE GRANULOCYTES 0.05 x10^3/uL (0.0-0.031); BASOPHILS # 0.09 x10^3/uL (0.01-0.08); EOSINOPHIL % 4.1 % (0.7-5.8); EOSINOPHILS # 0.26 x10^3/uL (0.04-0.36); HEMATOCRIT 30.2 % (34.1-44.9); HEMOGLOBIN 9.4 g/dL (11.2-15.7); MCHC 31.1 g/dl (32.2-35.5); MEAN CELL VOLUME 97.1 fl (79.4-94.8); MEAN PLT VOLUME 10.8 fl (9.4-12.3); MONOCYTE # 0.85 x10^3/uL (0.24-0.86); MONOCYTE % 13.3 % (4.7-12.5); PLATELET COUNT 179 x10^3/uL (182-369); POTASSIUM 3.2 mmol/L (3.5-5.1); RDW 23.2 % (12.4-16.6)
[2024-10-01 07:16] LABS: ALBUMIN 2.1 g/dl (3.4-5.0); BLOOD UREA NITROGEN 18.8 mg/dL (7-18); CALCIUM 8.1 mg/dL (8.5-10.1); MAGNESIUM 1.9 mg/dL (1.8-2.4)
[2024-10-01 07:19] LABS: PHOSPHOROUS 2.9 mg/dL (2.5-4.9)
[2024-10-01 07:20] LABS: BILIRUBIN,TOTAL 0.8 mg/dL (0.2-1)
[2024-10-01 07:21] LABS: TOT PROT 4.6 g/dl (6.4-8.2)
[2024-10-01] MEDS: KCL 10 MEQ IVPB 10 MEQ/100 ML INFUS.BAG IVPB SCH (08:36)
[2024-10-01] MEDS: FLUDROCORTISONE ACETATE 0.1 MG TABLET (FP) PO SCH (09:03)
[2024-10-01] MEDS: POTASSIUM CHLORIDE ORAL LIQUID 20 MEQ/15 ML PO ONE (11:15)
[2024-10-01] MEDS: MIDODRINE HCL 5 MG TABLET PO SCH (21:27)
[2024-10-01] MEDS: DROXIDOPA 100 MG CAPSULE PO SCH (21:27)
[2024-10-01] MEDS: COSYNTROPIN 0.25 MG VIAL IVPUSH ONE (21:28)
[2024-10-01] MEDS: ALBUMIN HUMAN 25% 100 ML VIAL IV SCH (22:45)
[2024-10-02 07:10] LABS: ABSOLUTE IMMATURE GRANULOCYTES 0.04 x10^3/uL (0.0-0.031); BASOPHILS # 0.04 x10^3/uL (0.01-0.08); EOSINOPHIL % 0.9 % (0.7-5.8); EOSINOPHILS # 0.06 x10^3/uL (0.04-0.36); HEMATOCRIT 25.9 % (34.1-44.9); MCHC 30.9 g/dl (32.2-35.5); MEAN CELL VOLUME 97.4 fl (79.4-94.8); MEAN PLT VOLUME 10.8 fl (9.4-12.3); MONOCYTE # 0.51 x10^3/uL (0.24-0.86); PLATELET COUNT 162 x10^3/uL (182-369); RDW 22.9 % (12.4-16.6)
[2024-10-02 07:26] LABS: POTASSIUM 3.8 mmol/L (3.5-5.1)
[2024-10-02 07:33] LABS: PHOSPHOROUS 3.4 mg/dL (2.5-4.9)
[2024-10-02 07:36] LABS: BLOOD UREA NITROGEN 18.7 mg/dL (7-18); CALCIUM 8.7 mg/dL (8.5-10.1)
[2024-10-02 07:38] LABS: BILIRUBIN,TOTAL 0.7 mg/dL (0.2-1)
[2024-10-02 07:53] LABS: ALBUMIN 2.6 g/dl (3.4-5.0)
[2024-10-02] MEDS: MIDODRINE HCL 5 MG TABLET PO SCH (13:23)
[2024-10-02 15:22] LABS: HEMATOCRIT 27.8 % (34.1-44.9); HEMOGLOBIN 8.6 g/dL (11.2-15.7); MCHC 30.9 g/dl (32.2-35.5); MEAN CELL VOLUME 97.5 fl (79.4-94.8); MEAN PLT VOLUME 10.8 fl (9.4-12.3); PLATELET COUNT 172 x10^3/uL (182-369); RDW 22.8 % (12.4-16.6)
[2024-10-02] MEDS ORDERED: ALBUMIN HUMAN 25% 100 ML VIAL IV SCH (20:00)
[2024-10-02] MEDS: ALBUMIN HUMAN 25% 12.5 GM/50 ML VIAL IV SCH (20:51)
[2024-10-02] MEDS: DROXIDOPA 100 MG CAPSULE PO SCH (20:51)
[2024-10-03 07:37] LABS: ABSOLUTE IMMATURE GRANULOCYTES 0.04 x10^3/uL (0.0-0.031); BASOPHILS # 0.07 x10^3/uL (0.01-0.08); EOSINOPHIL % 6.6 % (0.7-5.8); EOSINOPHILS # 0.45 x10^3/uL (0.04-0.36); HEMOGLOBIN 8.3 g/dL (11.2-15.7); MCHC 30.7 g/dl (32.2-35.5); MEAN CELL VOLUME 96.8 fl (79.4-94.8); MEAN PLT VOLUME 10.7 fl (9.4-12.3); MONOCYTE # 0.58 x10^3/uL (0.24-0.86); MONOCYTE % 8.6 % (4.7-12.5); PLATELET COUNT 162 x10^3/uL (182-369); RDW 22.8 % (12.4-16.6)
[2024-10-03 07:42] LABS: POTASSIUM 3.2 mmol/L (3.5-5.1)
[2024-10-03 07:44] LABS: CALCIUM 8.6 mg/dL (8.5-10.1)
[2024-10-03 07:45] LABS: ALBUMIN 3.2 g/dl (3.4-5.0); BLOOD UREA NITROGEN 18.3 mg/dL (7-18); MAGNESIUM 1.9 mg/dL (1.8-2.4)
[2024-10-03 07:48] LABS: CREATININE 0.9 mg/dL (0.55-1.3); PHOSPHOROUS 2.9 mg/dL (2.5-4.9)
[2024-10-03 07:50] LABS: BILIRUBIN,TOTAL 0.9 mg/dL (0.2-1); TOT PROT 5.1 g/dl (6.4-8.2)
[2024-10-03] MEDS: POTASSIUM CHLORIDE ORAL LIQUID 20 MEQ/15 ML PO ONE (09:06)
[2024-10-03] MEDS: POTASSIUM CHLORIDE TABS 20 MEQ TABLET.ER (FP) PO ONE (09:45)
[2024-10-03] MEDS ORDERED: ONDANSETRON 4 MG/2 ML VIAL IVPUSH PRN (20:36)
[2024-10-03] MEDS: HYDROmorphone HCL CARPU-JECT 2 MG/1 ML DISP.SYRIN IVPB PRN (20:55)
[2024-10-03] MEDS: MIDODRINE HCL 5 MG TABLET PO SCH (21:16)
[2024-10-03] MEDS: MELATONIN 5 MG TABLETS PO PRN (21:17)
[2024-10-03] MEDS ORDERED: CHLORHEXIDINE GLUCONATE 4% CLEANSER FOR DECOLONIZATION TP SCH (22:00)
[2024-10-04] MEDS: DROXIDOPA 100 MG CAPSULE PO SCH (05:20)
[2024-10-04 08:34] LABS: HEMATOCRIT 27.7 % (34.1-44.9); HEMOGLOBIN 8.6 g/dL (11.2-15.7); MEAN CELL VOLUME 99.6 fl (79.4-94.8); MEAN PLT VOLUME 10.7 fl (9.4-12.3); PLATELET COUNT 158 x10^3/uL (182-369); RDW 22.5 % (12.4-16.6)
[2024-10-04 08:58] LABS: POTASSIUM 3.4 mmol/L (3.5-5.1)
[2024-10-04 09:01] LABS: ALBUMIN 2.8 g/dl (3.4-5.0)
[2024-10-04 09:02] LABS: BLOOD UREA NITROGEN 15.6 mg/dL (7-18)
[2024-10-04 09:06] LABS: BILIRUBIN,TOTAL 1.1 mg/dL (0.2-1)
[2024-10-04] MEDS: ZINC SULFATE 220 MG CAPSULE (FP) PO SCH (10:11)
[2024-10-04] MEDS: PANTOPRAZOLE 40 MG TABLET PO SCH (10:11)
[2024-10-04] MEDS: ASCORBIC ACID 500 MG TABLET (FP) PO SCH (10:11)
[2024-10-04] MEDS: MULTIVITAMINS (DAILY MVI) TABLET (FP) PO SCH (10:11)
[2024-10-04] MEDS: FLUDROCORTISONE ACETATE 0.1 MG TABLET (FP) PO SCH (10:18)
[2024-10-04] MEDS: ACETAMINOPHEN 1000 MG/100 ML BAG IVPB ONE ×2 (11:20→19:08)
[2024-10-04] MEDS: COLLAGENASE CLOSTRIDIUM HIST. 30 GRAMS TUBE TP SCH (16:43)
[2024-10-05] MEDS: HYDROmorphone HCL CARPU-JECT 2 MG/1 ML DISP.SYRIN IVPUSH ONE (03:08)
[2024-10-05 19:35] VITALS: RESP 18
[2024-10-05] MEDS: ACETAMINOPHEN 1000 MG/100 ML BAG IVPB ONE (22:25)
[2024-10-06 11:13] VITALS: BP 102/61; PULSE 102; TEMP 98.1
== END 2024-10-06 13:25 | DRG 853 ==
LOC: JER 13:24 → JERBED 15:27 → JER 19:12 → JICU 09-08 00:10 → J8W 10-03 18:52
PROVIDERS: ADMIT Family Medicine; ATTEND Family Medicine
PROC: 3E1M48Z Irrigation of Peritoneal Cavity using Irrigating Substance, Percutaneous Endoscopic Approach (ICD-10-PCS; 2024-09-07)
PROC: 0BJ08ZZ Inspection of Tracheobronchial Tree, Via Natural or Artificial Opening Endoscopic (ICD-10-PCS; 2024-09-07)
PROC: 05HN33Z Insertion of Infusion Device into Left Internal Jugular Vein, Percutaneous Approach (ICD-10-PCS; 2024-09-07)
PROC: B544ZZA Ultrasonography of Left Jugular Veins, Guidance (ICD-10-PCS; 2024-09-07)
PROC: 5A1945Z Respiratory Ventilation, 24-96 Consecutive Hours (ICD-10-PCS; 2024-09-07)
PROC: 0BH17EZ Insertion of Endotracheal Airway into Trachea, Via Natural or Artificial Opening (ICD-10-PCS; 2024-09-07)
PROC: 0DBH4ZZ Excision of Cecum, Percutaneous Endoscopic Approach (ICD-10-PCS; principal; 2024-09-07 19:00)
PROC: 30233R1 Transfusion of Nonautologous Platelets into Peripheral Vein, Percutaneous Approach (ICD-10-PCS; 2024-09-08)
PROC: 30233N1 Transfusion of Nonautologous Red Blood Cells into Peripheral Vein, Percutaneous Approach (ICD-10-PCS; 2024-09-13)
PROC: 4A133B1 Monitoring of Arterial Pressure, Peripheral, Percutaneous Approach (ICD-10-PCS; 2024-09-18)
PROC: 4A133J1 Monitoring of Arterial Pulse, Peripheral, Percutaneous Approach (ICD-10-PCS; 2024-09-18)
PROC: 4A133B1 Monitoring of Arterial Pressure, Peripheral, Percutaneous Approach (ICD-10-PCS; 2024-09-24)
PROC: 4A133J1 Monitoring of Arterial Pulse, Peripheral, Percutaneous Approach (ICD-10-PCS; 2024-09-24)
DX: A41.9 Sepsis, unspecified organism (principal); J18.9 Pneumonia, unspecified organism; K63.1 Perforation of intestine (nontraumatic); R53.2 Functional quadriplegia; R65.21 Severe sepsis with septic shock; J96.20 Acute and chronic respiratory failure, unspecified whether with hypoxia or hypercapnia; I50.30 Unspecified diastolic (congestive) heart failure; B49 Unspecified mycosis; J90 Pleural effusion, not elsewhere classified; R18.8 Other ascites; D64.9 Anemia, unspecified; L89.150 Pressure ulcer of sacral region, unstageable; L89.620 Pressure ulcer of left heel, unstageable; E66.9 Obesity, unspecified; Z68.38 Body mass index [BMI] 38.0-38.9, adult; E87.70 Fluid overload, unspecified; H10.9 Unspecified conjunctivitis; D69.6 Thrombocytopenia, unspecified
CPT/HCPCS: 0241U-QW; 36415; 36430; 36600; 70450-TC; 71045-TC-FY; 71250-TC; 74176-TC; 74177-TC; 76700-TC; 80048; 80053; 80076; 81003; 82140; 82533; 82607; 82728; 82746; 82803; 82962; 83036; 83516; 83540; 83550; 83605; 83735; 84100; 84436; 84439; 84443; 84481; 84484; 85025; 85027; 85610; 85730; 86038; 86704; 86708; 86803; 86850; 86900; 86901; 86922; 87040; 87070; 87077; 87086; 87186; 87205; 87340; 87481; 87517; 88307-TC; 93005; 93010; 94002; 94640; 94760; 97161-GP; 99291; G0480; J0131; J0834; J1644; J3490; P9037; P9038; P9047; P9058; Q9967